=== PATIENT | female | born 1990 | race Caucasian/White ===

== ENCOUNTER → 2017-02-21 | Outpatient (CLI) | payer BC, OTHER ==
--- NOTE | 2017-02-21 19:57 | CT ---
EXAMINATION TYPE: CT brain wo/w con DATE OF EXAM: 02/21/2017 COMPARISON: NONE HISTORY: SHARP, changes in behavior and family hx of anuerysms. CT DLP: 2080 mGycm Automated Exposure Control for Dose Reduction was Utilized. TECHNIQUE: CT scan of the head is performed with IV contrast.,CT scan of the head is performed withou t and with without and with IV Contrast, patient injected with 100 mL of Omnipaque 300. CLINICAL HISTORY: Syncope COMPARISON: 08/04/2015 FINDINGS: Ventricles of normal size. There is no mass effect nor midline shift. There is no sign of intracranial hemorrhage. The calvarium is intact. There is no pathologic enhancement. There is no si gn of cerebral edema. There is a small mucous retention cyst in the right maxillary sinus. CONCLUSION: Negative CT scan of the brain. No change compared to old exam.
== END | disposition home or self-care (01) ==
LOC: RADCTMAIN 19:12
PROVIDERS: ATTEND Nurse Practitioner Family
DX: J34.1 Cyst and mucocele of nose and nasal sinus (principal); H53.9 Unspecified visual disturbance; Z80.8 Family history of malignant neoplasm of other organs or systems
CPT/HCPCS: 70470; Q9967

== ENCOUNTER 2017-05-19 18:15 | Emergency (ER) | payer BC, OTHER ==
[2017-05-19 18:23] VITALS: BP 132/71; PULSE 74; RESP 18; TEMP 98
--- NOTE | 2017-05-19 18:45 | ED ---
General Adult HPI - General Chief complaint: Back Pain/Injury Stated complaint: BACK PAIN Time Seen by Provider: 05/19/17 18:24 Source: patient, RN notes reviewed Mode of arrival: ambulatory Limitations: no limitations - History of Present Illness Initial comments: 27-year-old female presents for back pain. Patient states she was lifting boxes and she developed left back pain that radiates down her left leg. Patient denies a loss by bladder function. She has any falls any saddle anesthesia. Patient states she was lifting when this happened when she steps just of the pain that shoots on the leg. Patient states there is been no other symptoms with this. He denies any abdominal cramping. She states that she is 5 weeks and 5 days . Patient was concerned due to her symptoms so she thought that she should be evaluated. Patient denies any recent fever, chills, shortness of breath, chest pain, back pain, abdominal pain, nausea vomiting, numbness or tingling, dysuria or hematuria, constipation or diarrhea, headaches or visual changes, or any other current symptoms. - Related Data Home Medications Medication Instructions Recorded Confirmed Pnv,Calcium 72/Iron/Folic Acid 1 each PO DAILY 01/29/15 05/06/16 [ Plus Tablet] Albuterol Inhaler [Ventolin Hfa 2 puff INHALATION RT-Q6H PRN 05/19/17 05/19/17 Inhaler] Previous Rx's Medication Instructions Recorded Acetaminophen-Codeine 300-30mg 1 tab PO Q4H PRN #10 tablet 05/19/17 [Tylenol w/codeine #3] Allergies Allergy/AdvReac Type Severity Reaction Status Date / Time cefaclor [From Ceclor] Allergy Rash/Hives Verified 05/19/17 18:23 cephalexin monohydrate Allergy Rash/Hives Verified 05/19/17 18:23 [From Keflex] Review of Systems ROS Statement: Those systems with pertinent positive or pertinent negative responses have been documented in the HPI. ROS Other: All systems not noted in ROS Statement are negative. Past Medical History Past Medical History: Asthma Additional Past Medical History / Comment(s): obesity History of Any Multi-Drug Resistant Organisms: None Reported Past Surgical History: Cholecystectomy, Orthopedic Surgery Additional Past Surgical History / Comment(s): d&c achillis tendon ortho Past Psychological History: No Psychological Hx Reported Smoking Status: Former smoker Past Alcohol Use History: None Reported Past Drug Use History: None Reported General Exam Limitations: no limitations General appearance: alert, in no apparent distress ENT exam: Present: normal exam, mucous membranes moist Neck exam: Present: normal inspection. Absent: tenderness, meningismus, lymphadenopathy Respiratory exam: Present: normal lung sounds bilaterally. Absent: respiratory distress, wheezes, rales, rhonchi, stridor Cardiovascular Exam: Present: regular rate, normal rhythm, normal heart sounds. Absent: systolic murmur, diastolic murmur, rubs, gallop, clicks GI/Abdominal exam: Present: soft, normal bowel sounds. Absent: distended, tenderness, guarding, rebound, rigid Back exam: Present: normal inspection, full ROM, other (Positive straight leg raise on the left). Absent: tenderness Neurological exam: Present: alert, oriented X3 Psychiatric exam: Present: normal affect, normal mood Skin exam: Present: warm, dry, intact, normal color. Absent: rash Course Vital Signs 05/19/17 18:20 Temperature 98.0 F Pulse Rate 74 Respiratory 18 Rate Blood Pressure 132/71 O2 Sat by Pulse 99 Oximetry Medical Decision Making - Medical Decision Making 27 yo female presents for what appears to be sciatica. She has no abdominal pain or vaginal bleeding. This time it does appear to be isolated to the back. She took Tylenol with no relief. We did discuss she is very limited due to her what she can take. We discussed he can give her some Tylenol threes that she can take if she absolutely needs them for pain. Follow-up. We discussed return parameters all the patient's questions. She stated she understood and she is given plan. She'll be discharged. Disposition Clinical Impression: Sciatica, left side Disposition: HOME SELF-CARE Condition: Stable Instructions: Sciatica (ED) Additional Instructions: Please use medication as discussed. Please follow up with family doctor if symptoms have not improved over the next two days. Please return to the emergency room if your symptoms increase or worsen or for any other concerns. Please try to just use Tylenol and this stretches to help relieve the pain. If absolutely necessary you may use the Tylenol threes understanding that there may be some risk involved. Prescriptions: Acetaminophen-Codeine 300-30mg [Tylenol w/codeine #3] 1 tab PO Q4H PRN #10 tablet PRN Reason: Pain Referrals: Rashid Herrera MD [Primary Care Provider] - 1-2 days Time of Disposition: 18:44
== END 2017-05-19 18:58 | disposition home or self-care (01) ==
LOC: EC 18:15
DX: O99.89 Other specified diseases and conditions complicating pregnancy, childbirth and the puerperium (principal); M54.32 Sciatica, left side; O99.211 Obesity complicating pregnancy, first trimester; E66.9 Obesity, unspecified; Z87.891 Personal history of nicotine dependence; Z79.899 Other long term (current) drug therapy; Z88.1 Allergy status to other antibiotic agents; Z68.37 Body mass index [BMI] 37.0-37.9, adult; Z3A.01 Less than 8 weeks gestation of pregnancy
CPT/HCPCS: 99283

== ENCOUNTER 2017-06-30 14:07 | Emergency (ER) | payer OTHER ==
[2017-06-30] MEDS ORDERED: SODIUM CHLORIDE 0.9% 1,000 ML IV STA ×2 (14:24)
--- NOTE | 2017-06-30 14:27 | ED ---
General Adult HPI - General Source: patient, RN notes reviewed Mode of arrival: wheelchair Limitations: no limitations <Dc Martins - Last Filed: 06/30/17 18:38> <Adolph Erickson - Last Filed: 07/08/17 21:47> - General Chief complaint: Vaginal Bleeding Stated complaint: Vaginal Bleeding Time Seen by Provider: 06/30/17 14:18 - History of Present Illness Initial comments: Patient 27 year old female who presents emergency room today with chief complaint of increased vaginal bleeding. She does not that she's had spotting off and on over the last week. States became heavier this morning. She states approximately 10 weeks . States her OB is through [facility]. States he was so heavy that she came to this hospital as was closed. Does admit to some lower abdominal cramping. He admits that she's felt dizzy at times. Denies any other complaints or symptoms. Patient denies any recent fever , chills, shortness of breath, chest pain, back pain, nausea or vomiting, numbness or tingling, dysuria or hematuria, constipation or diarrhea, headaches or visual changes, or any other complaints. (Dc Martins) - Related Data Home Medications Medication Instructions Recorded Confirmed Pnv,Calcium 72/Iron/Folic Acid 1 tab PO DAILY 01/29/15 06/30/17 [ Plus Tablet] Albuterol Inhaler [Ventolin Hfa 2 puff INHALATION RT-Q6H PRN 05/19/17 06/30/17 Inhaler] Allergies Allergy/AdvReac Type Severity Reaction Status Date / Time cefaclor [From Ceclor] Allergy ASTHMA Verified 06/30/17 14:19 ATTACK cephalexin monohydrate Allergy Rash/Hives Verified 06/30/17 14:19 [From Keflex] Review of Systems ROS Other: All systems not noted in ROS Statement are negative. <Dc Martins - Last Filed: 06/30/17 18:38> ROS Other: All systems not noted in ROS Statement are negative. <Adolph Erickson - Last Filed: 07/08/17 21:47> ROS Statement: Those systems with pertinent positive or pertinent negative responses have been documented in the HPI. Past Medical History Past Medical History: Asthma Additional Past Medical History / Comment(s): obesity History of Any Multi-Drug Resistant Organisms: None Reported Past Surgical History: Cholecystectomy, Orthopedic Surgery Additional Past Surgical History / Comment(s): d&c achillis tendon ortho Past Psychological History: No Psychological Hx Reported Smoking Status: Former smoker Past Alcohol Use History: None Reported Past Drug Use History: None Reported <EliezerDc - Last Filed: 06/30/17 18:38> General Exam Limitations: no limitations <Josefina Martinsony - Last Filed: 06/30/17 18:38> <Adolph Erickson - Last Filed: 07/08/17 21:47> - General Exam Comments Initial Comments: General: The patient is awake and alert, in no distress, and does not appear acutely ill. Eye: Pupils are equal, round and reactive to light, extra-ocular movements are intact. No nystagmus. There is normal conjunctiva bilaterally. No signs of icterus. Ears, nose, mouth and throat: There are moist mucous membranes and no oral lesions. Neck: The neck is supple, there is no tenderness or JVD. Cardiovascular: There is a regular rate and rhythm. No murmur, rub or gallop is appreciated. Respiratory: Lungs are clear to auscultation, respirations are non-labored, breath sounds are equal. No wheezes, stridor, rales, or rhonchi. Gastrointestinal: Soft, non-distended, non-tender abdomen without masses or organomegaly noted. There is no rebound or guarding present. No CVA tenderness. Bowel sounds are unremarkable. Musculoskeletal: Normal ROM, no tenderness. Strength 5/5. Sensation intact. Pulses equal bilaterally 2+. Neurological: A&O x 3. CN II-XII intact, There are no obvious motor or sensory deficits. Coordination appears grossly intact. Speech is normal. Skin: Skin is warm and dry and no rashes or lesions are noted. Psychiatric: Cooperative, appropriate mood & affect, normal judgment. (Dc Martins) Vital Signs 06/30/17 06/30/17 06/30/17 14:09 15:10 15:42 Temperature 97.8 F Pulse Rate 85 78 69 Pulse Rate [ Sitting] Pulse Rate [ Supine] Respiratory 20 16 18 Rate Blood Pressure 151/76 108/56 117/61 Blood Pressure [Sitting] Blood Pressure [Supine] O2 Sat by Pulse 99 97 Oximetry 06/30/17 06/30/17 06/30/17 16:23 17:42 17:57 Temperature 98.3 F Pulse Rate 73 91 Pulse Rate [ 98 Sitting] Pulse Rate [ 76 Supine] Respiratory 16 18 Rate Blood Pressure 113/69 147/64 Blood Pressure 128/63 [Sitting] Blood Pressure 130/59 [Supine] O2 Sat by Pulse 97 99 Oximetry 06/30/17 19:11 Temperature Pulse Rate 76 Pulse Rate [ Sitting] Pulse Rate [ Supine] Respiratory 16 Rate Blood Pressure 134/71 Blood Pressure [Sitting] Blood Pressure [Supine] O2 Sat by Pulse 97 Oximetry Medical Decision Making - Lab Data Result diagrams: 06/30/17 18:04 06/30/17 14:44 <Dc Martins - Last Filed: 06/30/17 18:38> - Lab Data Result diagrams: 06/30/17 18:04 06/30/17 14:44 <Adolph Erickson - Last Filed: 07/08/17 21:47> - Medical Decision Making Case discussed in detail with attending physician Dr. Erickson. Patient reexamined at this time shows no signs of distress resting comfortably. Patient labs been reviewed. She was thousand. Patient's hemoglobin 14 6 and initial labs. Repeat hemoglobin 13.6. Patient's had bleeding vaginally here in the emergency room. Patient's ultrasound does show evidence for miscarriage. Case was discussed with attending physician who did discuss case with on-call DIRECTOR OF PRODUCT MANAGEMENT Dr. Calderon states that hemoglobin stable patient can be discharged follow-up with DIRECTOR OF PRODUCT MANAGEMENT tomorrow. Patient's been updated of the results. Hemoglobin stable will be discharged home. Patient advised return here to emergency room if any symptoms increase or worsen or for any other concerns. Patient's essentially and is in agreement. (Dc Martins) I saw this patient in conjunction with the physician culture media laboratory assistant. I performed independent history and physical exam. Agree with case management. I have examined the patient and there is no concern at this point for hypovolemia or anemia. We did discuss the return parameters in depth with the patient regarding need to return for hemorrhage. (Adolph Erickson) - Lab Data Lab Results 06/30/17 06/30/17 06/30/17 Range/Units 14:44 14:44 14:44 WBC 10.6 (3.8-10.6) k/uL RBC 5.22 (3.80-5.40) m/uL Hgb 14.6 (11.4-16.0) gm/dL Hct 45.5 (34.0-46.0) % MCV 87.2 (80.0-100.0) fL MCH 28.0 (25.0-35.0) pg MCHC 32.2 (31.0-37.0) g/dL RDW 15.1 (11.5-15.5) % Plt Count 229 (150-450) k/uL Neutrophils % 67 % Lymphocytes % 21 % Monocytes % 5 % Eosinophils % 6 % Basophils % 1 % Neutrophils # 7.1 (1.3-7.7) k/uL Lymphocytes # 2.2 (1.0-4.8) k/uL Monocytes # 0.5 (0-1.0) k/uL Eosinophils # 0.6 (0-0.7) k/uL Basophils # 0.1 (0-0.2) k/uL PT (9.0-12.0) sec INR (<1.2) APTT (22.0-30.0) sec Sodium 141 (137-145) mmol/L Potassium 4.4 (3.5-5.1) mmol/L Chloride 107 (98-107) mmol/L Carbon Dioxide 25 (22-30) mmol/L Anion Gap 9 mmol/L BUN 12 (7-17) mg/dL Creatinine 0.78 (0.52-1.04) mg/dL Est GFR (MDRD) Af Amer >60 (>60 ml/min/1.73 sqM) Est GFR (MDRD) Non-Af >60 (>60 ml/min/1.73 sqM) Glucose 89 (74-99) mg/dL Calcium 9.7 (8.4-10.2) mg/dL Total Bilirubin 0.2 (0.2-1.3) mg/dL AST 22 (14-36) U/L ALT 44 (9-52) U/L Alkaline Phosphatase 85 (38-126) U/L Total Protein 6.6 (6.3-8.2) g/dL Albumin 4.1 (3.5-5.0) g/dL HCG, Quant 947.6 mIU/mL Blood Type A Positive Blood Type Recheck No 06/30/17 06/30/17 Range/Units 14:44 18:04 WBC 10.3 (3.8-10.6) k/uL RBC 4.84 (3.80-5.40) m/uL Hgb 13.6 (11.4-16.0) gm/dL Hct 41.6 (34.0-46.0) % MCV 85.9 (80.0-100.0) fL MCH 28.1 (25.0-35.0) pg MCHC 32.7 (31.0-37.0) g/dL RDW 13.4 (11.5-15.5) % Plt Count 214 (150-450) k/uL Neutrophils % 66 % Lymphocytes % 24 % Monocytes % 4 % Eosinophils % 5 % Basophils % 1 % Neutrophils # 6.8 (1.3-7.7) k/uL Lymphocytes # 2.5 (1.0-4.8) k/uL Monocytes # 0.4 (0-1.0) k/uL Eosinophils # 0.5 (0-0.7) k/uL Basophils # 0.1 (0-0.2) k/uL PT 10.6 (9.0-12.0) sec INR 1.1 (<1.2) APTT 25.9 (22.0-30.0) sec Sodium (137-145) mmol/L Potassium (3.5-5.1) mmol/L Chloride (98-107) mmol/L Carbon Dioxide (22-30) mmol/L Anion Gap mmol/L BUN (7-17) mg/dL Creatinine (0.52-1.04) mg/dL Est GFR (MDRD) Af Amer (>60 ml/min/1.73 sqM) Est GFR (MDRD) Non-Af (>60 ml/min/1.73 sqM) Glucose (74-99) mg/dL Calcium (8.4-10.2) mg/dL Total Bilirubin (0.2-1.3) mg/dL AST (14-36) U/L ALT (9-52) U/L Alkaline Phosphatase (38-126) U/L Total Protein (6.3-8.2) g/dL Albumin (3.5-5.0) g/dL HCG, Quant mIU/mL Blood Type Blood Type Recheck Disposition Time of Disposition: 18:40 <Dc Martins - Last Filed: 06/30/17 18:38> <Adolph Erickson - Last Filed: 07/08/17 21:47> Clinical Impression: Miscarriage Disposition: HOME SELF-CARE Condition: Stable Instructions: Miscarriage (ED) Additional Instructions: Please follow-up with DIRECTOR OF PRODUCT MANAGEMENT tomorrow morning as discussed. Please return to emergency room if the symptoms increase or worsen or for any other concerns. Referrals: Rashid Herrera MD [Primary Care Provider] - 1-2 days
[2017-06-30 14:53] LABS: Basophils # (A) 0.1 k/uL (0-0.2); Basophils % (A) 1 %; CH 28.4; CHCM 32.7; Eosinophils # (A) 0.6 k/uL (0-0.7); Eosinophils % (A) 6 %; HCT 45.5 % (34.0-46.0); HDW 2.42; HGB 14.6 gm/dL (11.4-16.0); Luc # (Auto) 0.11; Luc % (Auto) 1; Lymphocytes # (A) 2.2 k/uL (1.0-4.8); Lymphocytes % (A) 21 %; MCHC 32.2 g/dL (31.0-37.0); MCV 87.2 fL (80.0-100.0); Mean Platelet Volume 8.7; Monocytes # (A) 0.5 k/uL (0-1.0); Monocytes % (A) 5 %; Neutrophils # (A) 7.1 k/uL (1.3-7.7); Neutrophils % (A) 67 %; RBC 5.22 m/uL (3.80-5.40); RDW 15.1 % (11.5-15.5); WBC 10.6 k/uL (3.8-10.6); WBC (Perox) 10.35
[2017-06-30 15:01] LABS: INR 1.1 (<1.2); Partial Thromboplastin Time 25.9 sec (22.0-30.0); Prothrombin Time 10.6 sec (9.0-12.0)
[2017-06-30 15:05] LABS: ALT 44 U/L (9-52); AST 22 U/L (14-36); Alkaline Phosphatase 85 U/L (38-126); Anion Gap 9 mmol/L; Blood Urea Nitrogen 12 mg/dL (7-17); Calcium 9.7 mg/dL (8.4-10.2); Carbon Dioxide 25 mmol/L (22-30); Chloride 107 mmol/L (98-107); Glucose 89 mg/dL (74-99); Non-African American GFR(MDRD) >60 (>60 ml/min/1.73 sqM); Potassium 4.4 mmol/L (3.5-5.1); Sodium 141 mmol/L (137-145); Total Bilirubin 0.2 mg/dL (0.2-1.3); Total Protein 6.6 g/dL (6.3-8.2)
--- NOTE | 2017-06-30 16:34 | US ---
EXAMINATION TYPE: US OB <= 14 wk fetus DATE OF EXAM: 06/30/2017 COMPARISON: NONE CLINICAL HISTORY: Pain. bleeding with EXAM PERFORMED: Transabdominal (TA) EXAM MEASUREMENTS: GESTATIONAL AGE / DATING Physician Established: not established Dates by LMP: unknown Dates by First Scan: this is first scan here Dates by Current Scan for: empty gestational sac seen in ELOISA [facility]ERNAL ANATOMY Uterus: 12.0 x 5.2 x 5.3 cm Right Ovary: 2.9 x 1.9 x 2.5 cm Left Ovary: 2.6 x 1.9 x 3.1 cm Post CDS / Adnexa: wnl Presence of free fluid: none GESTATION / SURVEY MSD: 1.9 (6 weeks/3 days) Date of LMP: unknown due to patient having PCOS, patient believed it to be in February, that does not cor relate with findings. Beta HcG (if available): 947.6 Patient states she has had 2 recent ultrasounds at [facility], the first one showed a 5 w 4 d sac, sh e does not have any results from second exam performed on 06/27/2017. Patient is hemorrhaging at time of exam, with large clots. There is what appears to be an empty gestational sac in the lower uterine segment on transabdominal exam. IMPRESSION: There appears be a gestational sac in the lower uterine segment. Findings could be related to impendi ng spontaneous . pole and yolk sac are not identified. These may not be visualized at this low beta hCG level.
[2017-06-30] MEDS ORDERED: ACETAMINOPHEN IV (For NPO) 1,000 MG in EMPTY BAG 1 BAG IVPB STA (17:30)
[2017-06-30 17:58] VITALS: TEMP 98.3
[2017-06-30 18:12] LABS: Basophils # (A) 0.1 k/uL (0-0.2); Basophils % (A) 1 %; CH 28.3; CHCM 33.1; Eosinophils # (A) 0.5 k/uL (0-0.7); Eosinophils % (A) 5 %; HCT 41.6 % (34.0-46.0); HDW 2.57; HGB 13.6 gm/dL (11.4-16.0); Luc # (Auto) 0.08; Luc % (Auto) 1; Lymphocytes # (A) 2.5 k/uL (1.0-4.8); Lymphocytes % (A) 24 %; MCH 28.1 pg (25.0-35.0); MCHC 32.7 g/dL (31.0-37.0); MCV 85.9 fL (80.0-100.0); Mean Platelet Volume 7.8; Monocytes # (A) 0.4 k/uL (0-1.0); Monocytes % (A) 4 %; Neutrophils # (A) 6.8 k/uL (1.3-7.7); Neutrophils % (A) 66 %; RBC 4.84 m/uL (3.80-5.40); RDW 13.4 % (11.5-15.5); WBC 10.3 k/uL (3.8-10.6); WBC (Perox) 10.24
[2017-06-30 19:15] VITALS: BP 134/71; PULSE 76; RESP 16
== END 2017-06-30 19:11 | disposition home or self-care (01) ==
LOC: EC 14:07
DX: O03.9 Complete or unspecified spontaneous abortion without complication (principal); E66.9 Obesity, unspecified; Z68.42 Body mass index [BMI] 45.0-49.9, adult; Z90.49 Acquired absence of other specified parts of digestive tract; Z87.891 Personal history of nicotine dependence; Z79.899 Other long term (current) drug therapy; Z88.1 Allergy status to other antibiotic agents
CPT/HCPCS: 99284; 96374; 96361 ×5; 36415; 86900; 86901; 80053; 85025; 85610; 85730; 84702; 76801; J0131

== ENCOUNTER 2019-01-06 22:28 | Emergency (ER) | payer OTHER ==
[2019-01-06 23:12] LABS: Appearance,Urine Cloudy (Clear); Bilirubin,Urine Negative (Negative); Blood,Urine Moderate (Negative); Color,Urine Light Red; Glucose,Urine (UA) Negative (Negative); Ketones,Urine Negative (Negative); Leukocyte Esterase,Urine Moderate (Negative); Mucus,Urine Few /hpf; Nitrite,Urine Negative (Negative); PH, Urine 5.5 (5.0-8.0); Protein,Urine 2+ (Negative); RBC,Urine >182 /hpf (0-5); Specific Gravity,Urine 1.034 (1.001-1.035); Squamous Epithelial Cell,Urine 7 /hpf (0-4); Urobilinogen,Urine <2.0 mg/dL (<2.0); WBC,Urine 58 /hpf (0-5)
--- NOTE | 2019-01-07 00:46 | ED ---
Abdominal Pain HPI - General Source: patient Mode of arrival: ambulatory Limitations: no limitations <Karol Espinosa - Last Filed: 01/07/19 03:23> <Emily Morales - Last Filed: 01/07/19 07:48> - General Chief Complaint: Abdominal Pain Stated Complaint: 18 weeks and cramping, blood in urine Time Seen by Provider: 01/07/19 00:20 - History of Present Illness Initial Comments: female with history of PCOS presenting today for cc of blood in urine. Patient states that while working she noticed some lower abdominal cramping mostly left-sided. She states she noted left-sided back pain and there is blood in her urine she states that a small amount light pain. She states she is unsure if this is coming from the vagina or the urethra she called her MAINTENANCE PLANNING CLERK who recommended she go to the nearest hospital for evaluation. Patient states she is at high risk with her history of PCOS. 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 Patient denies any fever or chills night sweats, leg swelling, heavy vaginal bleeding or SOB. Remaining ROS (-). Upon arrival pt appears well. (Karol Espinosa) - Related Data Home Medications Medication Instructions Recorded Confirmed Pnv,Calcium 72/Iron/Folic Acid 1 tab PO DAILY 01/29/15 01/06/19 [ Plus Tablet] Albuterol Inhaler [Ventolin Hfa 2 puff INHALATION RT-Q6H PRN 05/19/17 01/06/19 Inhaler] Previous Rx's Medication Instructions Recorded Nitrofurantoin Monohyd/M-Cryst 100 mg PO Q12HR #14 cap 01/07/19 [Macrobid] Allergies Allergy/AdvReac Type Severity Reaction Status Date / Time cefaclor [From Ceclor] Allergy ASTHMA Verified 06/30/17 14:19 ATTACK cephalexin monohydrate Allergy Rash/Hives Verified 06/30/17 14:19 [From Keflex] Review of Systems ROS Other: All systems not noted in ROS Statement are negative. <Karol Espinosa - Last Filed: 01/07/19 03:23> ROS Other: All systems not noted in ROS Statement are negative. <Emily Morales - Last Filed: 01/07/19 07:48> ROS Statement: Those systems with pertinent positive or pertinent negative responses have been documented in the HPI. Past Medical History Past Medical History: Asthma Additional Past Medical History / Comment(s): obesity History of Any Multi-Drug Resistant Organisms: None Reported Past Surgical History: Cholecystectomy, Orthopedic Surgery Additional Past Surgical History / Comment(s): d&c achillis tendon ortho Past Psychological History: No Psychological Hx Reported Smoking Status: Former smoker Past Alcohol Use History: None Reported Past Drug Use History: None Reported <Karol Espinosa - Last Filed: 01/07/19 03:23> General Exam Limitations: no limitations <Karol Espinosa - Last Filed: 01/07/19 03:23> - General Exam Comments Initial Comments: General: The patient is awake and alert, in no distress, and does not appear acutely ill. Morbidly obese Eye: Pupils are equal, round and reactive to light, extra-ocular movements are intact. No nystagmus. There is normal conjunctiva bilaterally. No signs of icterus. Ears, nose, mouth and throat: There are moist mucous membranes and no oral lesions. Neck: The neck is supple, there is no tenderness or JVD. Cardiovascular: There is a regular rate and rhythm. No murmur, rub or gallop is appreciated. Respiratory: Lungs are clear to auscultation, respirations are non-labored, breath sounds are equal. No wheezes, stridor, rales, or rhonchi. Gastrointestinal: Soft, non-distended, non-tender abdomen without masses or organomegaly noted. There is no rebound or guarding present. No CVA tenderness. Bowel sounds are unremarkable. Pelvics: No external lesions. [place] well rugated vaginal mucosa. Discharge in vaginal vault. No blood in vaginal vault. No adnexal or cervical motion tenderness. Cervical os closed. Musculoskeletal: Normal ROM, no tenderness. Strength 5/5. Sensation intact. Radial pulses equal bilaterally 2+. Neurological: A&O x 3. CN II-XII intact, There are no obvious motor or sensory deficits. Coordination appears grossly intact. Speech is normal. Skin: Skin is warm and dry and no rashes or lesions are noted. Psychiatric: Cooperative, appropriate mood & affect, normal judgment. (Karol Espinosa) Course Vital Signs 01/06/19 01/07/19 22:57 03:32 Temperature 98.6 F 97.9 F Pulse Rate 68 82 Respiratory 20 18 Rate Blood Pressure 123/85 121/84 O2 Sat by Pulse 100 99 Oximetry Medical Decision Making - Lab Data Result diagrams: 01/07/19 00:41 01/07/19 00:41 <Karol Espinosa - Last Filed: 01/07/19 03:23> - Lab Data Result diagrams: 01/07/19 00:41 01/07/19 00:41 <Emily Morales - Last Filed: 01/07/19 07:48> - Medical Decision Making 28yo presenting for bleeding. Pt hemodynamically stable upon arrival. Patient denies any heavy bleeding stating it is very light. US no complicating process. IUP with HR WNL. Ultrasound of the renal and bladder WNL. No evidence of stone. On pelvic no evidence of vaginal bleeding. RBC and WBC in UA. Concerning for urinary tract infection. Pt will be treated with macrobid. Pt states her OBGYN is aware of the protein in her urine. Pt BP within acceptable limits. At this time feel patient is stable for discharge with outpatient MAINTENANCE PLANNING CLERK follow-up. Patient is agreeable care plan as well as discharge. Discussed case with Dr. Morales prior to discharge who is agreeable with plan. (Karol Espinosa) I was available for consultation in the emergency department. The history and physical exam were done by the midlevel provider. I was consulted for this patient's care. I reviewed the case with the midlevel provider and based on their presentation of the patient, I agree with the assessment, medical decision making and plan of care as documented. Chart was dictated using [employer] dictation software. Attempts were made to correct any dictation errors however some typographical errors may persist. (Emily Morales) - Lab Data Lab Results 01/06/19 01/06/19 01/07/19 Range/Units 22:48 22:48 00:41 WBC (3.8-10.6) k/uL RBC (3.80-5.40) m/uL Hgb (11.4-16.0) gm/dL Hct (34.0-46.0) % MCV (80.0-100.0) fL MCH (25.0-35.0) pg MCHC (31.0-37.0) g/dL RDW (11.5-15.5) % Plt Count (150-450) k/uL Neutrophils % % Lymphocytes % % Monocytes % % Eosinophils % % Basophils % % Neutrophils # (1.3-7.7) k/uL Lymphocytes # (1.0-4.8) k/uL Monocytes # (0-1.0) k/uL Eosinophils # (0-0.7) k/uL Basophils # (0-0.2) k/uL Sodium (137-145) mmol/L Potassium (3.5-5.1) mmol/L Chloride (98-107) mmol/L Carbon Dioxide (22-30) mmol/L Anion Gap mmol/L BUN (7-17) mg/dL Creatinine (0.52-1.04) mg/dL Est GFR (CKD-EPI)AfAm (>60 ml/min/1.73 sqM) Est GFR (CKD-EPI)NonAf (>60 ml/min/1.73 sqM) Glucose (74-99) mg/dL Calcium (8.4-10.2) mg/dL Total Bilirubin (0.2-1.3) mg/dL AST (14-36) U/L ALT (9-52) U/L Alkaline Phosphatase (38-126) U/L Total Protein (6.3-8.2) g/dL Albumin (3.5-5.0) g/dL Urine Color Light Red Urine Appearance Cloudy H (Clear) Urine pH 5.5 (5.0-8.0) Ur Specific [place] 1.034 (1.001-1.035) Urine Protein 2+ H (Negative) Urine Glucose (UA) Negative (Negative) Urine Ketones Negative (Negative) Urine Blood Moderate H (Negative) Urine Nitrite Negative (Negative) Urine Bilirubin Negative (Negative) Urine Urobilinogen <2.0 (<2.0) mg/dL Ur Leukocyte Esterase Moderate H (Negative) Urine RBC >182 H (0-5) /hpf Urine WBC 58 H (0-5) /hpf Ur Squamous Epith Cells 7 H (0-4) /hpf Urine Mucus Few H (None) /hpf Urine HCG, Qual Detected (Not Detectd) Blood Type A Positive Blood Type Recheck No Antibody Screen NEGATIVE Spec Expiration Date 01/10/2019 - 234001/07/19 01/07/19 Range/Units 00:41 00:41 WBC 10.0 (3.8-10.6) k/uL RBC 4.50 (3.80-5.40) m/uL Hgb 13.1 (11.4-16.0) gm/dL Hct 38.8 (34.0-46.0) % MCV 86.4 (80.0-100.0) fL MCH 29.1 (25.0-35.0) pg MCHC 33.7 (31.0-37.0) g/dL RDW 14.2 (11.5-15.5) % Plt Count 190 (150-450) k/uL Neutrophils % 63 % Lymphocytes % 27 % Monocytes % 4 % Eosinophils % 4 % Basophils % 1 % Neutrophils # 6.3 (1.3-7.7) k/uL Lymphocytes # 2.7 (1.0-4.8) k/uL Monocytes # 0.4 (0-1.0) k/uL Eosinophils # 0.4 (0-0.7) k/uL Basophils # 0.1 (0-0.2) k/uL Sodium 138 (137-145) mmol/L Potassium 3.8 (3.5-5.1) mmol/L Chloride 109 H (98-107) mmol/L Carbon Dioxide 23 (22-30) mmol/L Anion Gap 6 mmol/L BUN 11 (7-17) mg/dL Creatinine 0.54 (0.52-1.04) mg/dL Est GFR (CKD-EPI)AfAm >90 (>60 ml/min/1.73 sqM) Est GFR (CKD-EPI)NonAf >90 (>60 ml/min/1.73 sqM) Glucose 86 (74-99) mg/dL Calcium 9.2 (8.4-10.2) mg/dL Total Bilirubin 0.2 (0.2-1.3) mg/dL AST 12 L (14-36) U/L ALT 17 (9-52) U/L Alkaline Phosphatase 61 (38-126) U/L Total Protein 5.7 L (6.3-8.2) g/dL Albumin 3.4 L (3.5-5.0) g/dL Urine Color Urine Appearance (Clear) Urine pH (5.0-8.0) Ur Specific [place] (1.001-1.035) Urine Protein (Negative) Urine Glucose (UA) (Negative) Urine Ketones (Negative) Urine Blood (Negative) Urine Nitrite (Negative) Urine Bilirubin (Negative) Urine Urobilinogen (<2.0) mg/dL Ur Leukocyte Esterase (Negative) Urine RBC (0-5) /hpf Urine WBC (0-5) /hpf Ur Squamous Epith Cells (0-4) /hpf Urine Mucus (None) /hpf Urine HCG, Qual (Not Detectd) Blood Type Blood Type Recheck Antibody Screen Spec Expiration Date Disposition <Karol Espinosa L - Last Filed: 01/07/19 03:23> Is patient prescribed a controlled substance at d/c from ED?: No <Emily Morales - Last Filed: 01/07/19 07:48> Clinical Impression: UTI (urinary tract infection) Disposition: HOME SELF-CARE Condition: Stable Instructions (If sedation given, give patient instructions): Urinary Tract Infection in (ED) Prescriptions: Nitrofurantoin Monohyd/M-Cryst [Macrobid] 100 mg PO Q12HR #14 cap Referrals: Rashid Herrera MD [Primary Care Provider] - 1-2 days
[2019-01-07 00:53] LABS: Basophils # (A) 0.1 k/uL (0-0.2); Basophils % (A) 1 %; Eosinophils # (A) 0.4 k/uL (0-0.7); Eosinophils % (A) 4 %; HCT 38.8 % (34.0-46.0); HGB 13.1 gm/dL (11.4-16.0); Lymphocytes # (A) 2.7 k/uL (1.0-4.8); Lymphocytes % (A) 27 %; MCH 29.1 pg (25.0-35.0); MCHC 33.7 g/dL (31.0-37.0); MCV 86.4 fL (80.0-100.0); Mean Platelet Volume 8.8; Monocytes # (A) 0.4 k/uL (0-1.0); Monocytes % (A) 4 %; Neutrophils # (A) 6.3 k/uL (1.3-7.7); Neutrophils % (A) 63 %; Platelet Count 190 k/uL (150-450); RDW 14.2 % (11.5-15.5)
[2019-01-07 00:58] LABS: ALT 17 U/L (9-52); AST 12 U/L (14-36); Albumin 3.4 g/dL (3.5-5.0); Alkaline Phosphatase 61 U/L (38-126); Anion Gap 6 mmol/L; Blood Urea Nitrogen 11 mg/dL (7-17); Calcium 9.2 mg/dL (8.4-10.2); Carbon Dioxide 23 mmol/L (22-30); Chloride 109 mmol/L (98-107); Glucose 86 mg/dL (74-99); Potassium 3.8 mmol/L (3.5-5.1); Sodium 138 mmol/L (137-145); Total Bilirubin 0.2 mg/dL (0.2-1.3); Total Protein 5.7 g/dL (6.3-8.2)
--- NOTE | 2019-01-07 01:58 | US ---
EXAM: US Retroperitoneal Limited, Renal CLINICAL HISTORY: Hematuria TECHNIQUE: Real-time ultrasound of the retroperitoneum (limited) with image documentation. COMPARISON: No relevant prior studies available. FINDINGS: Right kidney: Measures up to 9.8 cm. No stones. No solid mass. No hydronephrosis. Left kidney: Measures up to 10.0 cm. No stones. No solid mass. No hydronephrosis. IMPRESSION: Normal retroperitoneal ultrasound.
--- NOTE | 2019-01-07 02:06 | US ---
EXAM: US After First Trimester, Transabdominal CLINICAL HISTORY: Bleeding and TECHNIQUE: Real-time transabdominal obstetrical ultrasound of the maternal pelvis and a second or third trimester with image documentation. COMPARISON: No relevant prior studies available. FINDINGS: Fetus: Single live IUP with an estimated gestational age of 18 weeks and 2 days. Heart rate: 14 7 bpm Presentation: Variable. Placenta: Fundal. No previa. No abruption. Amniotic fluid: Unremarkable. Measures 10.16 cm. Anatomy: Limited anatomy is unremarkable. BIOMETRICS Gestational age: 18 weeks and 2 days HEATHER: 06/08/2019 EFW: 239.2 g BPD: 4.1 cm suggesting 18 weeks and 3 day gestation HC: 15.43 cm suggesting 18 week and 3 day gestation AC: 13.15 cm suggesting 18 weeks and 5 day gestation FL: 2.68 cm suggesting 18 weeks and 1 day gestation MATERNAL: Uterus: Unremarkable. No myometrial mass. Cervix: Unremarkable as visualized. Closed. Measures up to 4.5 cm Free fluid: No free fluid. IMPRESSION: Single live IUP with an estimated gestational age of 18 weeks and 2 days. No abnormalities identified.
[2019-01-07] MEDS ORDERED: NITROFURANTOIN MONOHYD/M-CRYST 100 MG CAP PO STA (03:10)
[2019-01-07 03:35] VITALS: BP 121/84; PULSE 82; RESP 18; TEMP 97.9
== END 2019-01-07 03:37 | disposition home or self-care (01) ==
LOC: EC 22:28
DX: O23.42 Unspecified infection of urinary tract in pregnancy, second trimester (principal); O99.512 Diseases of the respiratory system complicating pregnancy, second trimester; J45.909 Unspecified asthma, uncomplicated; O99.212 Obesity complicating pregnancy, second trimester; E66.01 Morbid (severe) obesity due to excess calories; Z90.49 Acquired absence of other specified parts of digestive tract; Z87.42 Personal history of other diseases of the female genital tract; Z87.59 Personal history of other complications of pregnancy, childbirth and the puerperium; Z87.891 Personal history of nicotine dependence; Z88.1 Allergy status to other antibiotic agents; Z3A.18 18 weeks gestation of pregnancy
CPT/HCPCS: 36415; 76770; 76805; 80053; 81001; 81025; 85025; 86850; 86900; 86901; 99284

== ENCOUNTER 2019-06-25 22:08 | Inpatient (IN) | payer OTHER ==
[2019-06-25] MEDS ORDERED: SODIUM CHLORIDE 0.9% 1,000 ML IV STA ×2 (22:46→23:56)
[2019-06-25] MEDS ORDERED: ONDANSETRON 4 MG/2 ML VIAL IVP STA (22:46)
[2019-06-25] MEDS ORDERED: PANTOPRAZOLE 40 MG/10 ML VIAL IVP STA (22:46)
[2019-06-25] MEDS ORDERED: IBUPROFEN 800 MG TAB PO STA (22:48)
--- NOTE | 2019-06-25 22:50 | ED ---
Recheck HPI - General Chief Complaint: Recheck/Abnormal Lab/Rx Stated Complaint: pancreatitis levels high Time Seen by Provider: 06/25/19 22:23 Source: patient, RN notes reviewed, old records reviewed Mode of arrival: ambulatory Limitations: no limitations - History of Present Illness Initial Comments: This is a 21-year-old female the ER for evaluation of abdominal pain. Patient has history of cholecystectomy she has history of elevated lipase in the past. Increased levels of elevated lipids unknown cause. Patient has history of drinking she does have a 2 months ago. He is post time is been fine. She also admits to some recent fevers and chills and diffuse abdominal pain across the front of her abdomen. Patient denies any radiation, no modifying factors for pain, patient is eating and drinking appropriately does have some nausea when the pain gets worse. No diarrhea. No travel history no sick contacts. No family members with similar complaints. Patient was seen an outpatient basis by her primary care today was given lab tests and elevated lipase was found. Patient unsure of level MD Complaint: abnormal lab (Elevated lipase) -: unknown Returns Today for: Called Because of Abnormal Lab/Test Symptoms Since Prior Visit: worsening pain, fever Context: called for abnormal lab result Associated Symptoms: fever, chills, nausea, abdominal pain - Related Data Home Medications Medication Instructions Recorded Confirmed Acetaminophen-Codeine 300-30mg 0.5 - 1 tab PO Q6H PRN 06/25/19 06/25/19 [Tylenol w/codeine #3] Multivitamin [Multivitamins Adult 2 tab PO DAILY 06/25/19 06/25/19 Gummies] Allergies Allergy/AdvReac Type Severity Reaction Status Date / Time amoxicillin [From Augmentin] Allergy Anaphylaxis Verified 06/25/19 23:03 cefaclor [From Ceclor] Allergy ASTHMA Verified 06/25/19 23:03 ATTACK cephalexin monohydrate Allergy Rash/Hives Verified 06/25/19 23:03 [From Keflex] clavulanic acid Allergy Anaphylaxis Verified 06/25/19 23:03 [From Augmentin] Review of Systems ROS Statement: Those systems with pertinent positive or pertinent negative responses have been documented in the HPI. ROS Other: All systems not noted in ROS Statement are negative. Past Medical History Past Medical History: Asthma Additional Past Medical History / Comment(s): obesity History of Any Multi-Drug Resistant Organisms: None Reported Past Surgical History: Cholecystectomy, Orthopedic Surgery Additional Past Surgical History / Comment(s): d&c achillis tendon ortho Past Psychological History: No Psychological Hx Reported Smoking Status: Former smoker Past Alcohol Use History: None Reported Past Drug Use History: None Reported General Exam Limitations: no limitations General appearance: alert, in no apparent distress, obese Head exam: Present: atraumatic, normocephalic, normal inspection Eye exam: Present: normal appearance, PERRL, EOMI. Absent: scleral icterus, conjunctival injection, periorbital swelling ENT exam: Present: normal exam, mucous membranes moist Neck exam: Present: normal inspection. Absent: tenderness, meningismus, lymphadenopathy Respiratory exam: Present: normal lung sounds bilaterally. Absent: respiratory distress, wheezes, rales, rhonchi, stridor Cardiovascular Exam: Present: normal rhythm, tachycardia, normal heart sounds. Absent: systolic murmur, diastolic murmur, rubs, gallop, clicks GI/Abdominal exam: Present: soft, normal bowel sounds. Absent: distended, te nderness, guarding, rebound, rigid Extremities exam: Present: normal inspection, full ROM, normal capillary refill. Absent: tenderness, pedal edema, joint swelling, calf tenderness Back exam: Present: normal inspection Neurological exam: Present: alert, oriented X3, CN II-XII intact Psychiatric exam: Present: normal affect, normal mood Skin exam: Present: warm, dry, intact, normal color. Absent: rash Course Vital Signs 06/25/19 22:18 Temperature 98.5 F Pulse Rate 104 H Respiratory 20 Rate Blood Pressure 133/73 O2 Sat by Pulse 98 Oximetry - Reevaluation(s) Reevaluation #1: 06/25/19 22:50 Medical record is reviewed Reevaluation #2: 06/25/19 22:50 Patient pain is mildly improved nausea is improved Reevaluation #3: 06/26/19 00:03 Patient lives hour long-term, patient's did leave patient not feeling good for discharge mildly nauseous with no active vomiting. Patient is breast- feeding, will have antibiotics despite ALLERGIES keep overnight - Consultations Consultation #1: spoke w Dr Gerry fink for admission Medical Decision Making - Medical Decision Making 21 female the ER for evaluation of abdominal pain. Patient originally thought she had an elevated lipase per family doctor here in the ER patient lipase is normal she is of UTI with pyelonephritis on computed tomography scan to abdominal pain. Patient be admitted for IV antibiotics and IV hydration. - Lab Data Result diagrams: 06/25/19 22:38 06/25/19 22:38 Lab Results 06/25/19 06/25/19 06/25/19 Range/Units 22:38 22:38 22:38 WBC 12.7 H (3.8-10.6) k/uL RBC 4.12 (3.80-5.40) m/uL Hgb 12.0 (11.4-16.0) gm/dL Hct 36.3 (34.0-46.0) % MCV 88.1 (80.0-100.0) fL MCH 29.2 (25.0-35.0) pg MCHC 33.2 (31.0-37.0) g/dL RDW 13.4 (11.5-15.5) % Plt Count 217 (150-450) k/uL Neutrophils % 73 % Lymphocytes % 16 % Monocytes % 5 % Eosinophils % 1 % Basophils % 1 % Neutrophils # 9.3 H (1.3-7.7) k/uL Lymphocytes # 2.1 (1.0-4.8) k/uL Monocytes # 0.6 (0-1.0) k/uL Eosinophils # 0.1 (0-0.7) k/uL Basophils # 0.1 (0-0.2) k/uL Sodium 137 (137-145) mmol/L Potassium 4.0 (3.5-5.1) mmol/L Chloride 103 (98-107) mmol/L Carbon Dioxide 26 (22-30) mmol/L Anion Gap 8 mmol/L BUN 20 H (7-17) mg/dL Creatinine 1.04 (0.52-1.04) mg/dL Est GFR (CKD-EPI)AfAm 85 (>60 ml/min/1.73 sqM) Est GFR (CKD-EPI)NonAf 74 (>60 ml/min/1.73 sqM) Glucose 107 H (74-99) mg/dL Plasma Lactic Acid [place] 1.2 (0.7-2.0) mmol/L Calcium 9.0 (8.4-10.2) mg/dL Total Bilirubin 0.8 (0.2-1.3) mg/dL AST 35 (14-36) U/L ALT 33 (9-52) U/L Alkaline Phosphatase 94 (38-126) U/L Creatine Kinase 369 H (30-135) U/L Total Protein 6.2 L (6.3-8.2) g/dL Albumin 3.4 L (3.5-5.0) g/dL Amylase 33 (30-110) U/L Lipase 127 (23-300) U/L Urine Color Urine Appearance (Clear) Urine pH (5.0-8.0) Ur Specific [place] (1.001-1.035) Urine Protein (Negative) Urine Glucose (UA) (Negative) Urine Ketones (Negative) Urine Blood (Negative) Urine Nitrite (Negative) Urine Bilirubin (Negative) Urine Urobilinogen (<2.0) mg/dL Ur Leukocyte Esterase (Negative) Urine RBC (0-5) /hpf Urine WBC (0-5) /hpf Urine WBC Clumps (None) /hpf Ur Squamous Epith Cells (0-4) /hpf Urine Bacteria (None) /hpf Urine Mucus (None) /hpf 06/25/19 Range/Units 23:25 WBC (3.8-10.6) k/uL RBC (3.80-5.40) m/uL Hgb (11.4-16.0) gm/dL Hct (34.0-46.0) % MCV (80.0-100.0) fL MCH (25.0-35.0) pg MCHC (31.0-37.0) g/dL RDW (11.5-15.5) % Plt Count (150-450) k/uL Neutrophils % % Lymphocytes % % Monocytes % % Eosinophils % % Basophils % % Neutrophils # (1.3-7.7) k/uL Lymphocytes # (1.0-4.8) k/uL Monocytes # (0-1.0) k/uL Eosinophils # (0-0.7) k/uL Basophils # (0-0.2) k/uL Sodium (137-145) mmol/L Potassium (3.5-5.1) mmol/L Chloride (98-107) mmol/L Carbon Dioxide (22-30) mmol/L Anion Gap mmol/L BUN (7-17) mg/dL Creatinine (0.52-1.04) mg/dL Est GFR (CKD-EPI)AfAm (>60 ml/min/1.73 sqM) Est GFR (CKD-EPI)NonAf (>60 ml/min/1.73 sqM) Glucose (74-99) mg/dL Plasma Lactic Acid [place] (0.7-2.0) mmol/L Calcium (8.4-10.2) mg/dL Total Bilirubin (0.2-1.3) mg/dL AST (14-36) U/L ALT (9-52) U/L Alkaline Phosphatase (38-126) U/L Creatine Kinase (30-135) U/L Total Protein (6.3-8.2) g/dL Albumin (3.5-5.0) g/dL Amylase (30-110) U/L Lipase (23-300) U/L Urine Color Yellow Urine Appearance Turbid H (Clear) Urine pH 5.5 (5.0-8.0) Ur Specific [place] 1.016 (1.001-1.035) Urine Protein 2+ H (Negative) Urine Glucose (UA) Negative (Negative) Urine Ketones Negative (Negative) Urine Blood Moderate H (Negative) Urine Nitrite Positive H (Negative) Urine Bilirubin Negative (Negative) Urine Urobilinogen <2.0 (<2.0) mg/dL Ur Leukocyte Esterase Large H (Negative) Urine RBC 64 H (0-5) /hpf Urine WBC >182 H (0-5) /hpf Urine WBC Clumps Moderate H (None) /hpf Ur Squamous Epith Cells 3 (0-4) /hpf Urine Bacteria Many H (None) /hpf Urine Mucus Occasional H (None) /hpf - Radiology Data Radiology results: report reviewed (CT of the abdomen pelvis is suspicious for bilateral pyelonephritis), image reviewed Disposition Clinical Impression: UTI (urinary tract infection), Pyelonephritis Disposition: ADMITTED IP TO THIS HOSP Condition: Fair Is patient prescribed a controlled substance at d/c from ED?: No Referrals: Rashid Herrera MD [Primary Care Provider] - 1-2 days
[2019-06-25 23:06] LABS: Basophils # (A) 0.1 k/uL (0-0.2); Basophils % (A) 1 %; Eosinophils # (A) 0.1 k/uL (0-0.7); Eosinophils % (A) 1 %; HCT 36.3 % (34.0-46.0); Lymphocytes # (A) 2.1 k/uL (1.0-4.8); Lymphocytes % (A) 16 %; MCH 29.2 pg (25.0-35.0); MCHC 33.2 g/dL (31.0-37.0); MCV 88.1 fL (80.0-100.0); Mean Platelet Volume 8.3; Monocytes # (A) 0.6 k/uL (0-1.0); Monocytes % (A) 5 %; Neutrophils # (A) 9.3 k/uL (1.3-7.7); Neutrophils % (A) 73 %; Platelet Count 217 k/uL (150-450); RBC 4.12 m/uL (3.80-5.40); RDW 13.4 % (11.5-15.5); WBC 12.7 k/uL (3.8-10.6)
[2019-06-25 23:21] LABS: Albumin 3.4 g/dL (3.5-5.0); Total Bilirubin 0.8 mg/dL (0.2-1.3); Total Protein 6.2 g/dL (6.3-8.2)
[2019-06-25 23:38] LABS: Appearance,Urine Turbid (Clear); Bacteria,Urine Many /hpf; Bilirubin,Urine Negative (Negative); Blood,Urine Moderate (Negative); Color,Urine Yellow; Glucose,Urine (UA) Negative (Negative); Ketones,Urine Negative (Negative); Leukocyte Esterase,Urine Large (Negative); Mucus,Urine Occasional /hpf; Nitrite,Urine Positive (Negative); PH, Urine 5.5 (5.0-8.0); Protein,Urine 2+ (Negative); RBC,Urine 64 /hpf (0-5); Specific Gravity,Urine 1.016 (1.001-1.035); Squamous Epithelial Cell,Urine 3 /hpf (0-4); Urobilinogen,Urine <2.0 mg/dL (<2.0); WBC,Urine >182 /hpf (0-5)
[2019-06-25] MEDS ORDERED: SULFAMETHOX-TMP 800-160MG 1 EACH TAB PO STA (23:48)
--- NOTE | 2019-06-25 23:55 | CT ---
EXAMINATION TYPE: CT abdomen pelvis w con DATE OF EXAM: 06/25/2019 COMPARISON: 01/29/2015 HISTORY: abdominal pain and fever. pt has elevated pancreatic enzymes. CT DLP: 2500.3 mGycm Automated exposure control for dose reduction was used. TECHNIQUE: Helical acquisition of images was performed from the lung bases through the pelvis. CONTRAST: Performed without Oral Contrast and with IV Contrast, patient injected with 100 mL of Isovue 300. FINDINGS: There is mild atelectasis left lung base. There is no pleural effusion. Liver appears enlarged and me asures 25 cm in length. Spleen is also mildly enlarged. Stomach is intact. There is no adrenal mass. There is no pancreatic mass. There are clips from cholecystectomy. Bile mik ts are not dilated. There is no discrete liver mass. There is large area of decreased enhancement upper pole left kidney. There is patchy decreased enhanc ement in the right kidney. There is 1.7 cm calculus at the right renal pelvis. The right ureter is no t dilated. Bladder is almost empty. Uterus is anteverted. There is 5 cm cyst on the left ovary. There is no free fluid in the pelvis. There is no inguinal hernia. There is no ascites or free air. There is no mesenteric edema. There is no sign of a bowel obstruction. There is no sign of thickened append ix. 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 Bony pelvis is intact. There is no compression f racture. IMPRESSION: THERE IS LARGE AREA OF EDEMA AND DECREASED ENHANCEMENT UPPER POLE LEFT KIDNEY THAT IS SUGGESTIVE OF A CUTE PYELONEPHRITIS. THERE IS PATCHY DECREASED ENHANCEMENT IN THE POSTERIOR CORTEX UPPER POLE RIGHT K IDNEY ALSO CONSISTENT WITH PYELONEPHRITIS. THERE IS PROBABLY SOME PYELONEPHRITIS IN THE INTERPOLAR RI GHT KIDNEY. THERE IS LARGE RIGHT RENAL CALCULUS. THERE IS MILD RIGHT-SIDED HYDRONEPHROSIS. MILD OBSTR UCTION OF THE RIGHT KIDNEY IS POSSIBLE. THE ABNORMALITIES OF THE KIDNEYS ARE NEW COMPARED TO OLD EXAM. LARGE LEFT OVARIAN CYST.
[2019-06-26] MEDS ORDERED: SODIUM CHLORIDE 0.9% 1,000 ML IV ONE (00:02)
[2019-06-26] MEDS ORDERED: LEVOFLOXACIN 750MG-D5W PMX 750 MG in DEXTROSE/WATER 1 150ML.BAG IVPB STA ×2 (00:02→15:51)
[2019-06-26] MEDS ORDERED: ONDANSETRON 4 MG/2 ML VIAL IVP PRN (00:31)
[2019-06-26] MEDS ORDERED: IBUPROFEN 400 MG TAB PO PRN (00:32)
[2019-06-26 01:27] VITALS: BMI 42.5
--- NOTE | 2019-06-26 18:32 | P.GSHP ---
History of Present Illness H&P Date: 06/26/19 Chief Complaint: Pyelonephritis and kidney stone The patient is a 29-year-old female admitted through the emergency room last night due to concern for possible pyelonephritis or pancreatitis. She says that she developed chills on 06/22 and a temperature to 104.5 on 06/23. She says that she had mid and left sided abdominal pain as well as some diarrhea. She also experienced some nausea and vomiting. She was evaluated by her PCP and apparently noted to have elevated pancreatic enzymes and sent to the emergency room for evaluation. She was afebrile upon presentation to the emergency room and has remained afebrile since then. Amylase and lipase were normal. Her white blood count was 12,700. BUN/creatinine were 20/1.04. Urinalysis showed 64 red cells greater than 182 white blood cells and was positive for nitrite. CT scan of the abdomen and pelvis showed an 18 x 13 mm calculus in the right renal pelvis but no hydronephrosis. The calculus had not been present on a CT scan in 01/2015. I was asked to see the patient due to the large right renal calculus. At the present time the patient denies any right-sided abdominal or flank pain. She has had no gross hematuria. She denies any dysuria but says that she has noted some increased urinary frequency. She usually voids 3 or 4 times at night but says that this pattern has not changed recently. - Constitutional Constitutional: Reports chills, Reports fever - Cardiovascular Cardiovascular: Denies shortness of breath - Respiratory Respiratory: Denies cough, Denies wheezing - Gastrointestinal Gastrointestinal: Reports as per HPI, Reports diarrhea Past Medical History Past Medical History: Asthma Additional Past Medical History / Comment(s): obesity History of Any Multi-Drug Resistant Organisms: None Reported Past Surgical History: Cholecystectomy, Orthopedic Surgery Additional Past Surgical History / Comment(s): d&c achillis tendon ortho Past Anesthesia/Blood Transfusion Reactions: No Reported Reaction Past Psychological History: No Psychological Hx Reported Smoking Status: Former smoker Past Alcohol Use History: None Reported Past Drug Use History: None Reported - Past Family History Mother Family Medical History: Thyroid Disorder Father Family Medical History: Diabetes Mellitus Additional Family Medical History / Comment(s): Heart Disease, Crohns Medications and Allergies Home Medications Medication Instructions Recorded Confirmed Type Acetaminophen-Codeine 300-30mg 0.5 - 1 tab PO Q6H PRN 06/25/19 06/25/19 History [Tylenol w/codeine #3] Multivitamin [Multivitamins Adult 2 tab PO DAILY 06/25/19 06/25/19 History Gummies] Sulfamethox-Tmp 800-160Mg [Bactrim 1 tab PO Q12HR #20 tab 06/26/19 Rx DS 800-160 mg] Allergies Allergy/AdvReac Type Severity Reaction Status Date / Time amoxicillin [From Augmentin] Allergy Anaphylaxis Verified 06/25/19 23:03 cefaclor [From Ceclor] Allergy ASTHMA Verified 06/25/19 23:03 ATTACK cephalexin monohydrate Allergy Rash/Hives Verified 06/25/19 23:03 [From Keflex] clavulanic acid Allergy Anaphylaxis Verified 06/25/19 23:03 [From Augmentin] Surgical - Exam Vital Signs Temp Pulse Resp BP Pulse Ox 98.5 F 104 H 20 133/73 98 06/25/19 22:18 06/25/19 22:18 06/25/19 22:18 06/25/19 22:18 06/25/19 22:18 - General well developed, well nourished, no distress, obese - ENT no hearing loss - Neck no masses, no lymphadectomy - Respiratory normal respiratory effort - Abdomen Abdomen: soft, non tender, no organomegaly Results - Labs 06/25/19 22:38 06/25/19 22:38 Abnormal Lab Results - Last 24 Hours (Table) 06/25/19 06/25/19 06/25/19 Range/Units 22:38 22:38 23:25 WBC 12.7 H (3.8-10.6) k/uL Neutrophils # 9.3 H (1.3-7.7) k/uL BUN 20 H (7-17) mg/dL Glucose 107 H (74-99) mg/dL Creatine Kinase 369 H (30-135) U/L Total Protein 6.2 L (6.3-8.2) g/dL Albumin 3.4 L (3.5-5.0) g/dL Urine Appearance Turbid H (Clear) Urine Protein 2+ H (Negative) Urine Blood Moderate H (Negative) Urine Nitrite Positive H (Negative) Ur Leukocyte Esterase Large H (Negative) Urine RBC 64 H (0-5) /hpf Urine WBC >182 H (0-5) /hpf Urine WBC Clumps Moderate H (None) /hpf Urine Bacteria Many H (None) /hpf Urine Mucus Occasional H (None) /hpf Microbiology - Last 24 Hours (Table) 06/25/19 23:25 Urine Culture - Preliminary Urine,Voided Diabetes panel 06/25/19 Range/Units 22:38 Sodium 137 (137-145) mmol/L Potassium 4.0 (3.5-5.1) mmol/L Chloride 103 (98-107) mmol/L Carbon Dioxide 26 (22-30) mmol/L BUN 20 H (7-17) mg/dL Creatinine 1.04 (0.52-1.04) mg/dL Glucose 107 H (74-99) mg/dL Calcium 9.0 (8.4-10.2) mg/dL AST 35 (14-36) U/L ALT 33 (9-52) U/L Alkaline Phosphatase 94 (38-126) U/L Total Protein 6.2 L (6.3-8.2) g/dL Albumin 3.4 L (3.5-5.0) g/dL Calcium panel 06/25/19 Range/Units 22:38 Calcium 9.0 (8.4-10.2) mg/dL Albumin 3.4 L (3.5-5.0) g/dL Pituitary panel 06/25/19 Range/Units 22:38 Sodium 137 (137-145) mmol/L Potassium 4.0 (3.5-5.1) mmol/L Chloride 103 (98-107) mmol/L Carbon Dioxide 26 (22-30) mmol/L BUN 20 H (7-17) mg/dL Creatinine 1.04 (0.52-1.04) mg/dL Glucose 107 H (74-99) mg/dL Calcium 9.0 (8.4-10.2) mg/dL Adrenal panel 06/25/19 Range/Units 22:38 Sodium 137 (137-145) mmol/L Potassium 4.0 (3.5-5.1) mmol/L Chloride 103 (98-107) mmol/L Carbon Dioxide 26 (22-30) mmol/L BUN 20 H (7-17) mg/dL Creatinine 1.04 (0.52-1.04) mg/dL Glucose 107 H (74-99) mg/dL Calcium 9.0 (8.4-10.2) mg/dL Total Bilirubin 0.8 (0.2-1.3) mg/dL AST 35 (14-36) U/L ALT 33 (9-52) U/L Alkaline Phosphatase 94 (38-126) U/L Total Protein 6.2 L (6.3-8.2) g/dL Albumin 3.4 L (3.5-5.0) g/dL Assessment and Plan (1) Renal calculus, right Narrative/Plan: The patient has a nonobstructive right renal calculus which does not appear to be currently symptomatic. Her urinalysis suggested a urinary tract infection but she has no right-sided flank pain suggestive of underlying pyelonephritis. She probably has cystitis. Her fever and diarrhea earlier in the week could hve been from the flu. She is currently afebrile and could be treated with an oral antibiotic as an outpatient. I discussed treatment options for her right renal calculus including ureteroscopy with lithotripsy, ESWL and percutaneous nephrostolithotomy. In view of the large size of the calculus I believe the latter would be the best treatment option. An appointment will be made for her to be seen in the office sometime later in the month to discuss this with Dr. Dawkins. Current Visit: Yes Status: Acute Code(s): N20.0 - CALCULUS OF KIDNEY SNOMED Code(s): 31026218
--- NOTE | 2019-06-26 19:09 | P.HPIM ---
History of Present Illness H&P Date: 06/26/19 Chief Complaint: Chills abdominal pain History of presenting complaint: This is a 29-year-old patient of Dr. Herrera. Patient on Saturday that is 5 days ago started with having chills. By Saturday symptoms became worse. Started having nausea vomiting. And CENTRAL abdominal pain diffuse. Started also having urinary frequency and a strong urine. Started becoming much worse. Decided to come to the ER. Found to have a very infected urine and admitted with acute pyelonephritis. Computed tomography scan of the abdomen also did show right kidney stone. Patient started on IV fluids IV antibiotics. Admitted for the same. Did receive IV Levaquin in the ER. Breasts the patient this morning she was feeling a bit better. Daily some breakfast and lunch. Patient had a ce sarean section 2 months ago. It is partly breast-feeding. And partly using formula for baby Review of systems: GEN.: Chills weak and tired EYES: None HEENT: None NECK: None RESPIRATORY: None CARDIOVASCULAR: None GASTROINTESTINAL: As above GENITOURINARY: None MUSCULOSKELETAL: None LYMPHATICS: None HEMATOLOGICAL: None PSYCHIATRY: None NEUROLOGICAL: None Past medical history to include: Asthma, 2 months ago Social history: Does smoke in the past. . Has 3 children at home. Physical examination: VITAL SIGNS: 98.5, 104, 20, 133/63, 98% room air GENERAL: BMI 41.2, sitting upon a distress. EYES: Pupils equal. Conjunctiva normal. HEENT: External appearance of nose and ears normal, oral cavity grossly normal. NECK: JVD not raised; masses not palpable. HEART: First and second heart sounds are normal; no edema. LUNGS: Respiratory rate normal; clear to auscultation. ABDOMEN: Soft, mild tenderness, no guarding or rigidity, liver spleen not palpable, no masses palpable. PSYCH: Alert and oriented x3; mood and affect normal. NEUROLOGICAL: Cranial nerves grossly intact; no facial asymmetry, power and sensation grossly intact. LYMPHATICS: No lymph nodes palpable in the axilla and neck INVESTIGATIONS, reviewed in the clinical context: White count 12.1 hemoglobin 12 progression for bun 20 creatine 1.04 Computed tomography scan abdomen large area of edema decreased enhancement upper pole left kidney. Also some suggestion of the right kidney. Also large right renal calculus. Assessment: -Bilateral acute pyelonephritis, UTI, causing early sepsis, POA -Patient had a giving to a child 2 months ago and patient's partly breast-feeding -Morbid obesity BMI 41.2 -Intermittent asthma -Large right kidney stone Plan: Patient is on IV fluids. IV Levaquin. Urology was consulted. Care was discussed with the patient. We'll give Lovenox for DVT prophylaxis. Encouraged to bed. Repeat labs in the morning. Care was discussed with the patient. Past Medical History Past Medical History: Asthma Additional Past Medical History / Comment(s): obesity History of Any Multi-Drug Resistant Organisms: None Reported Past Surgical History: Cholecystectomy, Orthopedic Surgery Additional Past Surgical History / Comment(s): d&c achillis tendon ortho Past Anesthesia/Blood Transfusion Reactions: No Reported Reaction Past Psychological History: No Psychological Hx Reported Smoking Status: Former smoker Past Alcohol Use History: None Reported Past Drug Use History: None Reported - Past Family History Mother Family Medical History: Thyroid Disorder Father Family Medical History: Diabetes Mellitus Additional Family Medical History / Comment(s): Heart Disease, Crohns Medications and Allergies Home Medications Medication Instructions Recorded Confirmed Type Acetaminophen-Codeine 300-30mg 0.5 - 1 tab PO Q6H PRN 06/25/19 06/25/19 History [Tylenol w/codeine #3] Multivitamin [Multivitamins Adult 2 tab PO DAILY 06/25/19 06/25/19 History Gummies] Sulfamethox-Tmp 800-160Mg [Bactrim 1 tab PO Q12HR #20 tab 06/26/19 Rx DS 800-160 mg] Allergies Allergy/AdvReac Type Severity Reaction Status Date / Time amoxicillin [From Augmentin] Allergy Anaphylaxis Verified 06/25/19 23:03 cefaclor [From Ceclor] Allergy ASTHMA Verified 06/25/19 23:03 ATTACK cephalexin monohydrate Allergy Rash/Hives Verified 06/25/19 23:03 [From Keflex] clavulanic acid Allergy Anaphylaxis Verified 06/25/19 23:03 [From Augmentin] Physical Exam Vitals: Vital Signs Temp Pulse Pulse Resp BP BP Pulse Ox 06/26/19 18:34 99.8 F H 118 H 06/26/19 16:00 98.0 F 95 20 118/73 98 06/26/19 07:00 97.6 F 89 24 119/78 98 06/26/19 01:21 98.5 F 85 16 118/81 97 06/26/19 00:06 99.2 F 99 20 124/68 97 06/25/19 22:18 98.5 F 104 H 20 133/73 98 Intake and Output 06/26/19 06/26/19 06/26/19 06:59 14:59 22:59 Output Total 525 1200 Balance -525 -1200 Output: Urine 525 1200 Other: Voiding Method Toilet Toilet Toilet Results CBC & Chem 7: 06/25/19 22:38 06/25/19 22:38 Labs: Abnormal Lab Results - Last 24 Hours (Table) 06/25/19 06/25/19 06/25/19 Range/Units 22:38 22:38 23:25 WBC 12.7 H (3.8-10.6) k/uL Neutrophils # 9.3 H (1.3-7.7) k/uL BUN 20 H (7-17) mg/dL Glucose 107 H (74-99) mg/dL Creatine Kinase 369 H (30-135) U/L Total Protein 6.2 L (6.3-8.2) g/dL Albumin 3.4 L (3.5-5.0) g/dL Urine Appearance Turbid H (Clear) Urine Protein 2+ H (Negative) Urine Blood Moderate H (Negative) Urine Nitrite Positive H (Negative) Ur Leukocyte Esterase Large H (Negative) Urine RBC 64 H (0-5) /hpf Urine WBC >182 H (0-5) /hpf Urine WBC Clumps Moderate H (None) /hpf Urine Bacteria Many H (None) /hpf Urine Mucus Occasional H (None) /hpf Microbiology - Last 24 Hours (Table) 06/25/19 23:25 Urine Culture - Preliminary Urine,Voided Thrombosis Risk Factor Assmnt - Choose All That Apply Any of the Below Risk Factors Present?: Yes Each Factor Represents 1 point: Obesity (BMI >25), Oral contraceptives or hormone replacement therapy, Varicose veins Other Risk Factors: No Thrombosis Risk Factor Assessment Total Risk Factor Score: 3 Thrombosis Risk Factor Assessment Level: Moderate Risk
[2019-06-26] MEDS: ACETAMINOPHEN TAB 325 MG TAB PO PRN (19:22)
[2019-06-26] MEDS: LACTATED RINGERS 1,000 ML IV SCH (19:22)
[2019-06-27] MEDS ORDERED: LEVOFLOXACIN 750MG-D5W PMX 750 MG in DEXTROSE/WATER 1 150ML.BAG IVPB SCH (00:15)
[2019-06-27] MEDS: LACTATED RINGERS 1,000 ML IV SCH ×3 (01:49→17:42)
[2019-06-27 05:49] LABS: HCT 33.2 % (34.0-46.0); HGB 11.1 gm/dL (11.4-16.0); MCH 29.2 pg (25.0-35.0); MCHC 33.4 g/dL (31.0-37.0); MCV 87.5 fL (80.0-100.0); Mean Platelet Volume 8.2; Platelet Count 168 k/uL (150-450); RBC 3.79 m/uL (3.80-5.40); RDW 13.4 % (11.5-15.5); WBC 6.1 k/uL (3.8-10.6)
[2019-06-27 05:58] LABS: African American GFR (CKD) >90 (>60 ml/min/1.73 sqM); Anion Gap 6 mmol/L; Blood Urea Nitrogen 13 mg/dL (7-17); Calcium 8.6 mg/dL (8.4-10.2); Carbon Dioxide 24 mmol/L (22-30); Chloride 109 mmol/L (98-107); Glucose 93 mg/dL (74-99); Potassium 4.8 mmol/L (3.5-5.1); Sodium 139 mmol/L (137-145)
--- NOTE | 2019-06-27 15:30 | P.PN ---
Subjective This is a 29-year-old patient of Dr. Herrera. Patient on Saturday that is 5 days ago started with having chills. By Saturday symptoms became worse. Started having nausea vomiting. And CENTRAL abdominal pain diffuse. Started also having urinary frequency and a strong urine. Started becoming much worse. Decided to come to the ER. Found to have a very infected urine and admitted with acute pyelonephritis. Computed tomography scan of the abdomen also did show right kidney stone. Patient started on IV fluids IV antibiotics. Admitted for the s fabiola. Did receive IV Levaquin in the ER. Breasts the patient this morning she was feeling a bit better. Daily some breakfast and lunch. Patient had a section 2 months ago. It is partly breast-feeding. And partly using formula for baby 06/27/2019 pt is lying in bed comfortable not in distress. Her abdominal pain is improved. Patient is followed closely by urology team for her right ureteral stone and recommended outpatient follow-up for stone removal, patient is aware of this yoni n and she intends to follow up with her urologist upon discharge. Yesterday evening she had a fever of 100.8, this morning patient is afebrile and his vitals are stable. Leukocytosis is improving down to 6.1K compared to 12.7 K on admission. Creatinine is normal Objective - Vital Signs Vital signs: Vital Signs Temp 97.9 F 06/27/19 12:15 Pulse 100 06/27/19 12:15 Resp 18 06/27/19 12:15 BP 116/77 06/27/19 12:15 Pulse Ox 97 06/27/19 12:15 Intake & Output 06/26/19 06/27/19 06/27/19 18:59 06:59 18:59 Intake Total 720 Output Total 1200 Balance -1200 720 Intake: Oral 720 Output: Urine 1200 Other: Voiding Method Toilet Toilet Toilet # Voids 1 - Exam GENERAL: The patient is alert and oriented x3, not in any acute distress. Well developed, well nourished. HEENT: Pupils are round and equally reacting to light. EOMI. No scleral icterus. No conjunctival pallor. Normocephalic, atraumatic. No pharyngeal erythema. No thyromegaly. CARDIOVASCULAR: S1 and S2 present. No murmurs, rubs, or gallops. PULMONARY: Chest is clear to auscultation, no wheezing or crackles. ABDOMEN: Soft, nontender, nondistended, normoactive bowel sounds. No palpable organomegaly. MUSCULOSKELETAL: No joint swelling or deformity. EXTREMITIES: No cyanosis, clubbing, or pedal edema. NEUROLOGICAL: Gross neurological examination did not reveal any focal deficits. SKIN: No rashes. no petechiae. - Labs CBC & Chem 7: 06/27/19 05:34 06/27/19 05:34 Labs: Abnormal Lab Results - Last 24 Hours (Table) 06/27/19 06/27/19 Range/Units 05:34 05:34 RBC 3.79 L (3.80-5.40) m/uL Hgb 11.1 L (11.4-16.0) gm/dL Hct 33.2 L (34.0-46.0) % Chloride 109 H (98-107) mmol/L Microbiology - Last 24 Hours (Table) 06/25/19 23:25 Urine Culture - Preliminary Urine,Voided Assessment and Plan Assessment: -Bilateral acute pyelonephritis, UTI, causing early sepsis, POA -Large right kidney stone -Patient had a giving to a child 2 months ago and patient's partly breast-feeding -Morbid obesity BMI 41.2 -Intermittent asthma, not active issue now Plan: This is a pleasant 29 years old female, who presents because of UTI and right- sided pyelonephritis. Follow-up with urology recommendation. Continue with antibiotics. Continue with IV fluid. Follow-up urine culture.Labs and medication were reviewed.. Continue same treatment. Continue with symptomatic treatment. Resume home medication. Monitor lytes and vitals. DVT and GI prophylaxis. Further recommendations of the clinical course of the patient DVT prophylaxis: Subcutaneous heparin GI Prophylaxis: Pepcid PT/OT: Pending Prognosis is guarded
[2019-06-27] MEDS: LEVOFLOXACIN 750MG-D5W PMX 750 MG in DEXTROSE/WATER 1 150ML.BAG IVPB SCH (17:42)
[2019-06-27] MEDS: FAMOTIDINE 20 MG/2 ML VIAL IV SCH (21:49)
[2019-06-27] MEDS: HEPARIN SODIUM,PORCINE 5,000 UNIT/ML 1 ML VIAL SQ SCH (21:49)
[2019-06-28] MEDS: LACTATED RINGERS 1,000 ML IV SCH (04:39)
[2019-06-28 07:12] LABS: Basophils % (A) 0 %; Eosinophils # (A) 0.2 k/uL (0-0.7); Eosinophils % (A) 3 %; HCT 35.8 % (34.0-46.0); Lymphocytes % (A) 17 %; MCH 29.2 pg (25.0-35.0); MCHC 33.6 g/dL (31.0-37.0); MCV 86.8 fL (80.0-100.0); Mean Platelet Volume 7.4; Monocytes # (A) 0.4 k/uL (0-1.0); Monocytes % (A) 7 %; Neutrophils # (A) 4.1 k/uL (1.3-7.7); Neutrophils % (A) 71 %; Platelet Count 262 k/uL (150-450); RBC 4.12 m/uL (3.80-5.40); RDW 13.5 % (11.5-15.5); WBC 5.8 k/uL (3.8-10.6)
[2019-06-28 07:31] LABS: African American GFR (CKD) >90 (>60 ml/min/1.73 sqM); Anion Gap 7 mmol/L; Blood Urea Nitrogen 12 mg/dL (7-17); Calcium 9.3 mg/dL (8.4-10.2); Carbon Dioxide 30 mmol/L (22-30); Chloride 105 mmol/L (98-107); Glucose 109 mg/dL (74-99); Potassium 5.1 mmol/L (3.5-5.1); Sodium 142 mmol/L (137-145)
--- NOTE | 2019-06-28 10:13 | P.PN ---
Subjective This is a 29-year-old patient of Dr. Herrera. Patient on Saturday that is 5 days ago started with having chills. By Saturday symptoms became worse. Started having nausea vomiting. And CENTRAL abdominal pain diffuse. Started also having urinary frequency and a strong urine. Started becoming much worse. Decided to come to the ER. Found to have a very infected urine and admitted with acute pyelonephritis. Computed tomography scan of the abdomen also did show right kidney stone. Patient started on IV fluids IV antibiotics. Admitted for the s fabiola. Did receive IV Levaquin in the ER. Breasts the patient this morning she was feeling a bit better. Daily some breakfast and lunch. Patient had a section 2 months ago. It is partly breast-feeding. And partly using formula for baby 06/27/2019 pt is lying in bed comfortable not in distress. Her abdominal pain is improved. Patient is followed closely by urology team for her right ureteral stone and recommended outpatient follow-up for stone removal, patient is aware of this yoni n and she intends to follow up with her urologist upon discharge. Yesterday evening she had a fever of 100.8, this morning patient is afebrile and his vitals are stable. Leukocytosis is improving down to 6.1K compared to 12.7 K on admission. Creatinine is normal 06/28/2019 06/28/2019 Patient line in bed comfortable. Her abdominal pain is improving, no nausea vomiting, tolerating diet well. No dysuria. Patient remains on IV fluids with gentle hydration. She remains on Levaquin however her urine culture is a still pending. No more fever since yesterday. Objective - Vital Signs Vital signs: Vital Signs Temp 97.4 F L 06/28/19 04:30 Pulse 80 06/28/19 04:30 Resp 18 06/28/19 08:00 BP 114/76 06/28/19 04:30 Pulse Ox 98 06/28/19 04:30 Intake & Output 06/27/19 06/28/19 06/28/19 18:59 06:59 18:59 Intake Total 720 480 Balance 720 480 Intake: Oral 720 480 Other: Voiding Method Toilet Toilet # Voids 2 - Exam GENERAL: The patient is alert and oriented x3, not in any acute distress. Well developed, well nourished. HEENT: Pupils are round and equally reacting to light. EOMI. No scleral icterus. No conjunctival pallor. Normocephalic, atraumatic. No pharyngeal erythema. No thyromegaly. CARDIOVASCULAR: S1 and S2 present. No murmurs, rubs, or gallops. PULMONARY: Chest is clear to auscultation, no wheezing or crackles. ABDOMEN: Soft, nontender, nondistended, normoactive bowel sounds. No palpable organomegaly. MUSCULOSKELETAL: No joint swelling or deformity. EXTREMITIES: No cyanosis, clubbing, or pedal edema. NEUROLOGICAL: Gross neurological examination did not reveal any focal deficits. SKIN: No rashes. no petechiae. - Labs CBC & Chem 7: 06/28/19 06:47 06/28/19 06:47 Labs: Abnormal Lab Results - Last 24 Hours (Table) 06/28/19 Range/Units 06:47 Glucose 109 H (74-99) mg/dL Microbiology - Last 24 Hours (Table) 06/25/19 23:25 Urine Culture - Preliminary Urine,Voided Gram Neg Bacilli Assessment and Plan Assessment: -Bilateral acute pyelonephritis, UTI, causing early sepsis, POA -Large right kidney stone -Patient had a giving to a child 2 months ago and patient's partly breast-feeding -Morbid obesity BMI 41.2 -Intermittent asthma, not active issue now Plan: This is a pleasant 29 years old female, who presents because of UTI and right- sided pyelonephritis. Follow-up with urology recommendation. Continue with antibiotics. Continue with IV fluid. Follow-up urine culture.Labs and medication were reviewed.. Continue same treatment. Continue with symptomatic treatment. Resume home medication. Monitor lytes and vitals. DVT and GI prophylaxis. Further recommendations of the clinical course of the patient DVT prophylaxis: Subcutaneous heparin GI Prophylaxis: Pepcid PT/OT: Pending Prognosis is guarded
[2019-06-28] MEDS: HEPARIN SODIUM,PORCINE 5,000 UNIT/ML 1 ML VIAL SQ SCH ×2 (11:08→20:23)
[2019-06-28] MEDS: FAMOTIDINE 20 MG/2 ML VIAL IV SCH ×2 (11:08→20:23)
[2019-06-28] MEDS: ACETAMINOPHEN TAB 325 MG TAB PO PRN (14:37)
[2019-06-28] MEDS: LEVOFLOXACIN 750MG-D5W PMX 750 MG in DEXTROSE/WATER 1 150ML.BAG IVPB SCH (17:46)
[2019-06-29] MEDS: LACTATED RINGERS 1,000 ML IV SCH (00:35)
[2019-06-29 09:02] VITALS: BP 129/90; PULSE 74; RESP 12; TEMP 98.1
[2019-06-29] MEDS: FAMOTIDINE 20 MG/2 ML VIAL IV SCH (09:04)
[2019-06-29] MEDS: HEPARIN SODIUM,PORCINE 5,000 UNIT/ML 1 ML VIAL SQ SCH (09:04)
--- NOTE | 2019-06-29 09:52 | P.DS ---
Providers Date of admission: 06/28/19 15:00 Attending physician: Nato Garrett Consults: 06/26/19 10:31 Consult Physician Routine Consulting Provider: Gee Dolan Consult Reason/Comments: pylo, stone on ct scan Do you want consulting provider notified?: Yes Primary care physician: Rashid Herrera [facility] Course: Diagnoses: -Bilateral acute pyelonephritis approximately on the right side, UTI, causing early sepsis -Large right kidney stone -Patient had a giving to a child 2 months ago and patient's partly breast-feeding -Morbid obesity BMI 41.2 -Intermittent asthma, not active issue now Hospital course: This is a 29-year-old patient of Dr. Herrera. With past medical history of asthma and obesity. Who presents because of nausea vomiting and abdominal pain. Patient was found to have acute pyelonephritis mainly on the right side.Computed tomography scan of the abdomen also did show right kidney stone. Patient has been evaluated by urologist who recommended out patient follow-up this month for removal of her renal stone with possible therapy options including ureteroscopy with lithotripsy, ESWL and percutaneous nephrostolithotomy. Patient responded to treatment well with no more nausea vomiting, she is tolerating diet well. Her abdominal pain has resolved. On discharge she denies dysuria and other urinary symptoms. No flank tenderness or CVA tenderness. Vision is afebrile. And her white cell count is within normal limits at 5.8K. Creatinine normal at 0.9. And vitals are stable urine culture is growing E. coli which is sensitive to many antibiotics including ceftriaxone and superior oxide. Patient will be discharged on a short course of Bactrim 10 days prescribed to her by the urologist. Patient was counseled not to breast-feed if possible for risk of implant exposure to the drug to 2 days after finishing her therapy and/or to speak with her doctor first and she agrees Patient was cleared for discharge by urology Problems and management plan were discussed with the patient and he verbalized understanding and acceptance Patient was found stable and can be discharged home however he needs follow-up as an outpatient. Patient was instructed to follow up with PCP within one week and patient agrees. Patient agrees with the appointments made for her with the radiologist that she will follow up Gen: patient is a AAOx3, no distress CVS: S1-S2, RRR, no murmur Lungs: B/L CTA, no wheezing Abdomen: soft, no distention, no tenderness, positive bowel sounds Extremity: no leg edema or induration Time spent more than 35 minutes Patient Condition at Discharge: Fair Plan - Discharge Summary Discharge Rx Participant: No New Discharge Prescriptions: New Sulfamethox-Tmp 800-160Mg [Bactrim DS 800-160 mg] 1 tab PO Q12HR #20 tab Continue Acetaminophen-Codeine 300-30mg [Tylenol w/codeine #3] 0.5 - 1 tab PO Q6H PRN PRN Reason: Pain Multivitamin [Multivitamins Adult Gummies] 2 tab PO DAILY Discharge Medication List Acetaminophen-Codeine 300-30mg [Tylenol w/codeine #3] 0.5 - 1 tab PO Q6H PRN 06/25/19 [History] Multivitamin [Multivitamins Adult Gummies] 2 tab PO DAILY 06/25/19 [History] Sulfamethox-Tmp 800-160Mg [Bactrim DS 800-160 mg] 1 tab PO Q12HR #20 tab 06/26/19 [Rx] Follow up Appointment(s)/Referral(s): Angel Dawkins MD [STAFF PHYSICIAN] - 07/13/19 1:40 pm Rashid Herrera MD [Primary Care Provider] - 06/29/19 11:00 am (Saturday at 11am. ) Patient Instructions/Handouts: Kidney Infection (DC) Activity/Diet/Wound Care/Special Instructions: Continue your regular diet. If diarrhea continues try the B.R.A.T diet. Fluids are always encouraged. Return to the ER if your symptoms worsen or return, or if you have fevers that you can not control at home. Call your PCP with any questions, comments or concerns.
== END 2019-06-29 11:17 | disposition home or self-care (01) | DRG 872 ==
LOC: EC 22:08 → 6PED 06-26 00:02 → OBSVTOIN 06-28 15:00
PROVIDERS: ADMIT Hospitalist; ATTEND Hospitalist
DX: A41.9 Sepsis, unspecified organism (principal); N10 Acute pyelonephritis; Z68.41 Body mass index [BMI] 40.0-44.9, adult; E66.01 Morbid (severe) obesity due to excess calories; N20.0 Calculus of kidney; N30.90 Cystitis, unspecified without hematuria; Z79.899 Other long term (current) drug therapy; Z90.49 Acquired absence of other specified parts of digestive tract; Z98.891 History of uterine scar from previous surgery; Z98.890 Other specified postprocedural states; Z87.891 Personal history of nicotine dependence; Z88.1 Allergy status to other antibiotic agents; Z88.0 Allergy status to penicillin; Z83.49 Family history of other endocrine, nutritional and metabolic diseases; Z83.3 Family history of diabetes mellitus; Z83.79 Family history of other diseases of the digestive system; Z82.49 Family history of ischemic heart disease and other diseases of the circulatory system; J45.20 Mild intermittent asthma, uncomplicated
CPT/HCPCS: 36415; 74177; 80048; 80053; 81001; 82150; 82550; 83605; 83690; 84703; 85025; 85027; 87077; 87086; 87186; 96361; 96374; 96375; 99285

== ENCOUNTER → 2019-10-01 | Outpatient (CLI) | payer OTHER ==
[2019-10-01 08:29] LABS: Basophils % (A) 0 %; Eosinophils # (A) 0.4 k/uL (0-0.7); Eosinophils % (A) 4 %; HCT 45.8 % (34.0-46.0); HGB 15.3 gm/dL (11.4-16.0); Lymphocytes # (A) 1.9 k/uL (1.0-4.8); Lymphocytes % (A) 22 %; MCH 28.4 pg (25.0-35.0); MCHC 33.4 g/dL (31.0-37.0); Mean Platelet Volume 9.6; Monocytes # (A) 0.4 k/uL (0-1.0); Monocytes % (A) 5 %; Neutrophils # (A) 5.8 k/uL (1.3-7.7); Neutrophils % (A) 67 %; Platelet Count 220 k/uL (150-450); RBC 5.39 m/uL (3.80-5.40); RDW 13.4 % (11.5-15.5); WBC 8.7 k/uL (3.8-10.6)
[2019-10-01 08:36] LABS: African American GFR (CKD) >90 (>60 ml/min/1.73 sqM); Anion Gap 8 mmol/L; Blood Urea Nitrogen 17 mg/dL (7-17); Calcium 9.4 mg/dL (8.4-10.2); Carbon Dioxide 23 mmol/L (22-30); Chloride 108 mmol/L (98-107); Glucose 108 mg/dL (74-99); Non-African American GFR(CKD) >90 (>60 ml/min/1.73 sqM); Sodium 139 mmol/L (137-145)
[2019-10-01 08:41] LABS: Potassium 4.8 mmol/L (3.5-5.1)
== END | disposition home or self-care (01) ==
LOC: LABPAT 08:08
PROVIDERS: ATTEND Urology
DX: Z01.812 Encounter for preprocedural laboratory examination (principal); N20.0 Calculus of kidney
CPT/HCPCS: 36415; 80048; 85025

== ENCOUNTER 2019-10-06 10:57 | Observation (INO) | payer OTHER ==
[2019-09-30 16:03] VITALS: BMI 43.0
--- NOTE | 2019-10-05 16:47 | P.HPIHPCON ---
History of Present Illness H&P Date: 10/06/19 Chief Complaint: right sided renal stone Ms Pratt is 29 yo female with hx of 1.7 cm right sided renal stone, I discussed with her the option of ureteroscopy, and PCNL. I discussed with her the risk and benefit of each approach. I discussed with her the risk of bleeding, infection and injury to nearby organs which include but not limited to lung, colon, bowel and liver. I also discussed with her the risk from anesthesia. She understood all risks and agreed to proceed Consent for Procedure: I have explained the operation/procedure to the patient, including the risks, benefits, side effects, alternative therapies (including not receiving the proposed treatment or service), the likelihood of the patient achieving his/her goals, and potential recuperation problems for the procedure/sedation/analgesia, as well as any blood products, if indicated. I also explained to the patient the risks, benefits and side effects of the alternatives, as well as the risks related to not receiving the proposed procedure, care, treatment, or services. - Constitutional Constitutional: Denies chills, Denies fever Past Medical History Past Medical History: Asthma Additional Past Medical History / Comment(s): adm to [facility] in Jun. for pyelonephritis, kidney stone History of Any Multi-Drug Resistant Organisms: None Reported Past Surgical History: Section, Cholecystectomy, Orthopedic Surgery Additional Past Surgical History / Comment(s): d&c, right heel repair of fx. w/plate & screws Past Anesthesia/Blood Transfusion Reactions: No Reported Reaction Smoking Status: Former smoker - Past Family History Mother Family Medical History: Thyroid Disorder Father Family Medical History: Diabetes Mellitus Additional Family Medical History / Comment(s): Heart Disease, Crohns Medications and Allergies Home Medications Medication Instructions Recorded Confirmed Type Albuterol Inhaler [Ventolin Hfa 1 - 2 puff INHALATION RT-Q6H PRN 09/30/19 09/30/19 History Inhaler] Etonogestrel [Nexplanon] 68 mg SQ DIRECTED 09/30/19 09/30/19 History traMADol HCL [Ultram] 50 mg PO Q6HR PRN 09/30/19 09/30/19 History Allergies Allergy/AdvReac Type Severity Reaction Status Date / Time amoxicillin [From Augmentin] Allergy Anaphylaxis Verified 09/30/19 12:51 cefaclor [From Ceclor] Allergy ASTHMA Verified 09/30/19 12:51 ATTACK cephalexin monohydrate Allergy Rash/Hives Verified 09/30/19 12:51 [From Keflex] clavulanic acid Allergy Anaphylaxis Verified 09/30/19 12:51 [From Augmentin] Surgical - Exam - General well developed, well nourished, no distress - Respiratory normal expansion, normal respiratory effort - Abdomen Abdomen: soft, non tender Assessment and Plan Assessment: 29 yo female with 1.7 cm right sided renal stone -OR for R PCNL
[~2019-10-06 10:57] MED LIST: CIPROFLOXACIN/DEXTROSE PMX 400 MG in DEXTROSE/WATER 1 200ML.BAG IVPB ONE; DEXAMETHASONE SOD PHOSPHATE 10 MG/ML 1 ML VIAL IV ONE; GENTAMICIN 130 MG in SODIUM CHLORIDE 0.9% 100 ML IVPB ONE; MIDAZOLAM 2 MG/2 ML VIAL IV PRN; ONDANSETRON 4 MG/2 ML VIAL IVP ONE; SCOPOLAMINE 1.5MG/72HR PATCH TRANSDERM ONE
--- NOTE | 2019-10-06 11:45 | XR ---
KUB HISTORY: Kidney stone Frontal KUB submitted on 2 images, correlation to prior CT scan dated 06/25/2019 There is calcification superimposed over the right hemipelvis measuring 2.3 cm. Surgical clips presen t right upper quadrant. Punctate calcification present of the lower pole left kidney. No evident pneu moperitoneum or bowel obstruction. IMPRESSION: Bilateral nephrolithiasis.
[2019-10-06] MEDS: LACTATED RINGERS 1,000 ML IV SCH ×2 (12:10→23:43)
[2019-10-06] MEDS ORDERED: LIDOCAINE 1% 20 ML VIAL (10MG/ML) FOR IV START INTRADERMA ONE (12:11)
[2019-10-06] MEDS ORDERED: fentaNYL (PF) 50 MCG/ML 2 ML AMP ONE (12:40)
[2019-10-06] MEDS ORDERED: MIDAZOLAM 2 MG/2 ML VIAL ONE (12:40)
[2019-10-06] MEDS ORDERED: LIDOCAINE 1% INJ 10MG/ML (20 ML MDV) ONE (12:40)
[2019-10-06] MEDS ORDERED: ROCURONIUM BROMIDE 10 MG/ML 5 ML VIAL IV ONE (12:40)
[2019-10-06] MEDS ORDERED: PROPOFOL 10 MG/ML 20 ML VIAL IV ONE (12:40)
[2019-10-06] MEDS ORDERED: NEOSTIGMINE 1 MG/ML 10 ML VIAL ONE (12:40)
[2019-10-06] MEDS ORDERED: ALBUTEROL INHALER 60 PUFF/8 GM INHALER INHALATION ONE (12:40)
[2019-10-06] MEDS ORDERED: SUCCINYLCHOLINE CHLORIDE 100 MG/5 ML SYR IV ONE (12:40)
[2019-10-06] MEDS ORDERED: GLYCOPYRROLATE 0.2 MG/ML 2 ML VIAL ONE (12:40)
[2019-10-06] MEDS ORDERED: ONDANSETRON 4 MG/2 ML VIAL IVP PRN (12:55)
[2019-10-06] MEDS ORDERED: ACETAMINOPHEN TAB 325 MG TAB PO PRN (12:55)
[2019-10-06] MEDS ORDERED: MAG HYDROX/AL HYDROX/SIMETH 30 ML CUP PO PRN (12:55)
[2019-10-06] MEDS ORDERED: ALBUTEROL NEBULIZED 2.5 MG/3 ML INHALATION PRN (12:58)
[2019-10-06] MEDS ORDERED: IOHEXOL 350 MG/ML (PER ML) 100ML BTL INJ ONE (13:42)
[2019-10-06] MEDS ORDERED: LACTATED RINGERS 1,000 ML IV ONE (15:48)
[2019-10-06] MEDS ORDERED: BUPIVACAINE (PF) 0.25% 30 ML VIAL SQ ONE (16:17)
[2019-10-06] MEDS ORDERED: IOPAMIDOL-370 125ML BTL INJ ONE (16:17)
--- NOTE | 2019-10-06 16:40 | P.OP ---
Date of Procedure: 10/06/19 Preoperative Diagnosis: right renal calculi Postoperative Diagnosis: same Procedure(s) Performed: Cystoscopy, Right ureteral catherization, PCNL(>2 cm), anterograde nephrostogram, Anterograde stent placement and nephrostomy tube placement. Implants: 6Fr X 26 cm stent 8 Fr nephrostomy tube Anesthesia: FRANCISCO Surgeon: Angel Dawkins Estimated Blood Loss (ml): 150 Pathology: other (right renal stone) Condition: stable Disposition: PACU Indications for Procedure: Ms Pratt is 29 yo female with hx of 1.7 cm right sided renal stone, repeat KUB prior to surgery showed stone has increased to 2.3 cm in size compared to previous CT from 06/2019. I discussed with her the option of ureteroscopy, and PCNL. I discussed with her the risk and benefit of each approach. I discussed with her the risk of bleeding, infection and injury to nearby organs which include but not limited to lung, colon, bowel and liver. I also discussed with her the risk from anesthesia. She understood all risks and agreed to proceed Operative Findings: large right sided renal stone severe Narrowing at the right UPJ Description of Procedure: The patient was brought to the operating room, general anesthesia was induced. She was prepped and draped in sterile fashion and placed supine frog leg position. the right ureteral orfice was identified and intubated with 0.035 motion wire. The cystoscope was removed with wire in place.A 7 Fr baloon ocluded catheter was passed over the wire and advanced to the proximal ureter, a olmstead catheter was placed in the bladder At this time the patient was placed in prone position, and prepped and draped in sterile fashion. A large renal calculi was visualized on fluoroscopy. At this time Dr Aponte performed percutaneous access on the right kidney. Of note there was difficulty passing a wire down the ureter. Please see his dictation for his portion of procedure. Once access was obtained the The tract was dilated using the balloon dilators, Next a 24-Togolese access sheath was advanced over the balloon. The balloon was removed with the sheath in place. Next a rigid nephroscope was inserted through the sheath and large calculi was visualized. of note patient had very friable and edematous tissue. The stone was broken up into smaller fragments using the ultrasound lithotripter. Stone fragments were removed and sent for stone analysis. Repeat nephroscopy was performed using the rigid nephroscope and flexibile cystoscope Showed no injury to the UPJ or renal pelvis, contrast extravisation or any residual stone. Of note patient had severe narrowing of the UPJ. I attempted to pass wire through the nephroscope and down the ureter but resistance was met. At this time a sensor wire was advanced through the ureteral catheter and was advanced up the kindey. The wire was grasped and clamped. At this point a through and through access was obatined. I attempted to pass a second wire down the ureter, but was unable to secondary to patient narrowed UPJ. Next a 6- Togolese by 26 cm stent was passed over the wire and curl was visualized in the bladder and kidney under fluoroscopy. Next a sensor wire was advanced through the scope and into the renal pelvis. Next a 10 Fr nephrostomy tube was passed over the second wire and into the renal pelvis. Anterograde neprostogram showed no contrast extra and showed the the nephrostomy tube is in good location. The neprhostomy was secured to the skin using 2-0 Vicryl. The patient was awoken from anesthesia and taken to the recovery room in stable condition.
[2019-10-06] MEDS: HYDROmorphone 0.5 MG/0.5 ML SYRINGE IVP PRN ×3 (16:55→20:47)
[2019-10-06] MEDS: DEXTROSE 5%-0.45% NACL 1,000 ML IV SCH ×2 (17:05→23:39)
[2019-10-06] MEDS: HEPARIN SODIUM,PORCINE 5,000 UNIT/ML 1 ML VIAL SQ SCH ×2 (17:09→23:41)
[2019-10-06] MEDS: KETOROLAC 30 MG/ML 1 ML VIAL IVP SCH ×2 (18:20→23:38)
[2019-10-06] MEDS: CIPROFLOXACIN HCL 500 MG TAB PO SCH (20:59)
[2019-10-06 21:23] LABS: HCT 43.1 % (34.0-46.0); HGB 13.9 gm/dL (11.4-16.0); MCH 27.7 pg (25.0-35.0); MCHC 32.4 g/dL (31.0-37.0); MCV 85.7 fL (80.0-100.0); Mean Platelet Volume 9.4; Platelet Count 218 k/uL (150-450); RBC 5.03 m/uL (3.80-5.40); RDW 13.5 % (11.5-15.5)
[2019-10-06 21:32] LABS: African American GFR (CKD) >90 (>60 ml/min/1.73 sqM); Anion Gap 8 mmol/L; Carbon Dioxide 24 mmol/L (22-30); Chloride 106 mmol/L (98-107); Non-African American GFR(CKD) >90 (>60 ml/min/1.73 sqM); Potassium 4.9 mmol/L (3.5-5.1); Sodium 138 mmol/L (137-145)
[2019-10-07] MEDS: HYDROmorphone 0.5 MG/0.5 ML SYRINGE IVP PRN ×2 (01:08→04:39)
[2019-10-07] MEDS: KETOROLAC 30 MG/ML 1 ML VIAL IVP SCH ×3 (05:37→17:02)
[2019-10-07] MEDS: HEPARIN SODIUM,PORCINE 5,000 UNIT/ML 1 ML VIAL SQ SCH ×2 (08:02→17:02)
[2019-10-07] MEDS: CIPROFLOXACIN HCL 500 MG TAB PO SCH ×2 (08:02→21:06)
[2019-10-07] MEDS: DEXTROSE 5%-0.45% NACL 1,000 ML IV SCH (08:03)
--- NOTE | 2019-10-07 08:26 | FL ---
EXAMINATION TYPE: FL Perc Nephrostomy New Access DATE OF EXAM: 10/06/2019 COMPARISON: CT scan 06/25/2019 HISTORY: Right renal pelvic stone Procedure had been discussed with the patient by Dr. Viveros, risks, benefits, alternatives, were dis cussed and any questions were answered. Informed consent was obtained. The patient was in a semipro ne position prepped and draped on the OR table in the usual sterile fashion. Utilizing a 15 cm lengt h Chiba needle a single pass was made into a lower pole posterior calyx under fluoroscopic guidance. An 0.018 guidewire is passed through the needle and there was placement of a 6-Slovak catheter sheat h system. There was conversion to a 0.035 system was performed with passage of a guidewire into the ureter utilizing a directional catheter. A second safety wire was placed. Remaining portion of pro cedure performed by . Approximately 7 minutes and 26 seconds of fluoroscopy was provided. IMPRESSION: 1. Successful intraoperative right nephrostomy prior to nephrolithotomy.
--- NOTE | 2019-10-07 09:56 | P.PN ---
Subjective Progress Note Date: 10/07/19 Principal diagnosis: Right renal calculi No acute overnight event, having pain in the right flank. Has not ambulated yet. Objective - Vital Signs Vital signs: Vital Signs Temp 98.4 F 10/07/19 07:00 Pulse 82 10/07/19 07:00 Resp 14 10/07/19 07:00 BP 119/77 10/07/19 07:00 Pulse Ox 95 10/07/19 07:00 Intake & Output 10/06/19 10/07/19 10/07/19 18:59 06:59 18:59 Intake Total 1803.25 600 Output Total 325 560 Balance 1478.25 40 Weight 126.9 kg Intake: IV 1803.25 Intake, IV Titration 600 Amount Dextrose 5%-0.45% NaCl 1, 600 000 ml @ 100 mls/hr IV . Q10H [place] Rx#:[id number] Output: Drainage 360 Right Back 360 Urine 175 200 Estimated Blood Loss 150 Other: Voiding Method Indwelling Catheter - Neck Neck: Present: normal ROM - Gastrointestinal General gastrointestinal: Present: soft. Absent: distended - Genitourinary Genitourinary Comment(s): olmstead with blood tinged urine PCN with light red urine - Labs CBC & Chem 7: 10/06/19 20:48 10/06/19 20:48 Labs: Abnormal Lab Results - Last 24 Hours (Table) 10/06/19 Range/Units 20:48 WBC 16.0 H (3.8-10.6) k/uL Assessment and Plan Assessment: 29 yo female with right sided renal stone S/P R PCNL. Having pain this am Plan: -Pain control -D/C olmstead -Will plan on discharging home tomorrow
[2019-10-07] MEDS: traMADol 50 MG TAB PO PRN ×2 (14:03→21:06)
[2019-10-08] MEDS: DEXTROSE 5%-0.45% NACL 1,000 ML IV SCH (00:41)
[2019-10-08] MEDS: KETOROLAC 30 MG/ML 1 ML VIAL IVP SCH ×3 (00:45→12:14)
[2019-10-08] MEDS: HEPARIN SODIUM,PORCINE 5,000 UNIT/ML 1 ML VIAL SQ SCH ×2 (00:46→08:04)
[2019-10-08] MEDS: traMADol 50 MG TAB PO PRN (08:04)
[2019-10-08] MEDS: CIPROFLOXACIN HCL 500 MG TAB PO SCH (08:04)
[2019-10-08 08:27] VITALS: BP 121/79; RESP 17; TEMP 98.2
[2019-10-08] MEDS: HYDROmorphone 0.5 MG/0.5 ML SYRINGE IVP PRN (10:15)
[2019-10-08 11:55] VITALS: PULSE 104
--- NOTE | 2019-10-08 12:52 | P.DS ---
Providers Date of admission: 10/07/19 01:09 Attending physician: Angel Dawkins MD Primary care physician: [facility] Course: Ms Pratt is 29 yo female with hx of right sided renal stone, She underwent Right sided PCNL on 10/06. Please see op note dated 10/06 for full surgery details. She was admitted to the floor post operatively. Michaud was removed on POD #1. Patient was having flank pain on POD #1, which improved on POD #2. She was discharged home on POD #2. She was discharged home on POD #2 with nephrostomy tube. She will f/u in one week for PCN removal Plan - Discharge Summary Discharge Rx Participant: Yes New Discharge Prescriptions: New Ibuprofen 600 mg PO Q6H #20 tab Cephalexin [Keflex] 500 mg PO Q8HR #15 cap No Action traMADol HCL [Ultram] 50 mg PO Q6HR PRN PRN Reason: Pain Albuterol Inhaler [Ventolin Hfa Inhaler] 1 - 2 puff INHALATION RT-Q6H PRN PRN Reason: Dyspnea Etonogestrel [Nexplanon] 68 mg SQ DIRECTED Discharge Medication List Albuterol Inhaler [Ventolin Hfa Inhaler] 1 - 2 puff INHALATION RT-Q6H PRN 09/30/19 [History] Etonogestrel [Nexplanon] 68 mg SQ DIRECTED 09/30/19 [History] traMADol HCL [Ultram] 50 mg PO Q6HR PRN 09/30/19 [History] Cephalexin [Keflex] 500 mg PO Q8HR #15 cap 10/08/19 [Rx] Ibuprofen 600 mg PO Q6H #20 tab 10/08/19 [Rx] Follow up Appointment(s)/Referral(s): Angel Dawkins MD [STAFF PHYSICIAN] - 1 Week Activity/Diet/Wound Care/Special Instructions: No heavy lifting or straining Drink plenty of fluid You may shower but no baths
== END 2019-10-08 15:23 | disposition home or self-care (01) ==
LOC: OR 10:57 → 4SSUR 16:56 → OR 10-07 00:48 → 4SSUR 10-07 01:09
PROVIDERS: ADMIT Urology; ATTEND Urology
DX: N20.0 Calculus of kidney (principal); J45.909 Unspecified asthma, uncomplicated; Z87.891 Personal history of nicotine dependence; Z88.1 Allergy status to other antibiotic agents; Z83.49 Family history of other endocrine, nutritional and metabolic diseases; Z79.891 Long term (current) use of opiate analgesic; Z79.51 Long term (current) use of inhaled steroids; Z79.2 Long term (current) use of antibiotics; Z79.899 Other long term (current) drug therapy; Z83.3 Family history of diabetes mellitus; Z82.49 Family history of ischemic heart disease and other diseases of the circulatory system; Z84.89 Family history of other specified conditions
CPT/HCPCS: 94640; 81025; 86900; 86901; 80051; 82565; 85027; 86850; 82365; 50432; 74018; 52356; G0378 ×2; C1769 ×2; C1894; C1729; J2250; J1644 ×3; J1100; J2710; J2405; J2001; J3010; J1885 ×3; J1580; J0330; J2704; J1170 ×3; Q9967

== ENCOUNTER → 2019-10-30 | Outpatient (CLI) | payer OTHER ==
--- NOTE | 2019-10-30 14:25 | XR ---
EXAMINATION TYPE: XR chest 2V DATE OF EXAM: 10/30/2019 COMPARISON: 08/04/2015 TECHNIQUE: PA and lateral views submitted. HISTORY: Shortness of breath FINDINGS: The lungs are clear and there is no pneumothorax, pleural effusion, or focal pneumonia. No overt fa ilure. Heart size normal. Mild hypertrophic change of the spine. IMPRESSION: 1. No acute process.
== END | disposition home or self-care (01) ==
LOC: RADXRMAIN 13:46
PROVIDERS: ATTEND Urology
DX: R06.02 Shortness of breath (principal)
CPT/HCPCS: 71046

== ENCOUNTER 2019-11-02 12:31 | Emergency (ER) | payer OTHER ==
[2019-11-02 12:35] VITALS: TEMP 97.9
[2019-11-02] MEDS ORDERED: KETOROLAC 60 MG/2 ML VIAL IM STA (12:45)
--- NOTE | 2019-11-02 12:48 | ED ---
General Adult HPI - General Chief complaint: Chest Pain Stated complaint: Chest pain/vision loss in left eye Time Seen by Provider: 11/02/19 12:32 Source: patient, RN notes reviewed, old records reviewed Mode of arrival: ambulatory Limitations: no limitations - History of Present Illness Initial comments: This is a 29-year-old female presents emergency Department complaining of right upper chest pain. Patient states that sharp in nature comes in stabbing fashion and goes away after a few seconds. Patient states continues to occur was takes a deep breath or coughs it also seems to occur when she bends over. Patient states when it hurts she feels short of breath this was a pain goes away she has no shortness of breath. Patient states this started on October 06 and it continues. Patient denies any fever chills. Patient denies any nausea vomiting or diarrhea. Patient denies any abdominal pain. Patient denies a headache patient denies numbness weakness. - Related Data Home Medications Medication Instructions Recorded Confirmed Albuterol Inhaler [Ventolin Hfa 1 - 2 puff INHALATION RT-Q6H PRN 09/30/19 10/06/19 Inhaler] Etonogestrel [Nexplanon] 68 mg SQ DIRECTED 09/30/19 10/06/19 traMADol HCL [Ultram] 50 mg PO Q6HR PRN 09/30/19 10/06/19 Previous Rx's Medication Instructions Recorded Cephalexin [Keflex] 500 mg PO Q8HR #15 cap 10/08/19 Ibuprofen 600 mg PO Q6H #20 tab 10/08/19 Ibuprofen [Motrin] 600 mg PO Q6HR PRN #20 tab 11/02/19 Allergies Allergy/AdvReac Type Severity Reaction Status Date / Time amoxicillin [From Augmentin] Allergy Anaphylaxis Verified 11/02/19 12:32 cefaclor [From Ceclor] Allergy ASTHMA Verified 11/02/19 12:32 ATTACK cephalexin monohydrate Allergy Rash/Hives Verified 11/02/19 12:32 [From Keflex] clavulanic acid Allergy Anaphylaxis Verified 11/02/19 12:32 [From Augmentin] Review of Systems ROS Statement: Those systems with pertinent positive or pertinent negative responses have been documented in the HPI. ROS Other: All systems not noted in ROS Statement are negative. Past Medical History Past Medical History: Asthma Additional Past Medical History / Comment(s): adm to [facility] in Nov. for pyelonephritis, kidney stone History of Any Multi-Drug Resistant Organisms: None Reported Past Surgical History: Section, Cholecystectomy, Orthopedic Surgery Additional Past Surgical History / Comment(s): d&c, right heel repair of fx. w/plate & screws Past Anesthesia/Blood Transfusion Reactions: No Reported Reaction Past Psychological History: No Psychological Hx Reported Smoking Status: Former smoker Past Alcohol Use History: None Reported Past Drug Use History: None Reported - Past Family History Mother Family Medical History: Thyroid Disorder Father Family Medical History: Diabetes Mellitus Additional Family Medical History / Comment(s): Heart Disease, Crohns General Exam - General Exam Comments Initial Comments: GENERAL: Patient is well-developed and well-nourished. Patient is nontoxic and well- hydrated and is in no acute distress. ENT: Neck is soft and supple. No significant lymphadenopathy is noted. Oropharynx is clear. Moist mucous membranes. Neck has full range of motion without eliciting any pain. EYES: The sclera were anicteric and conjunctiva were pink and moist. Extraocular movements were intact and pupils were equal round and reactive to light. Eyelids were unremarkable. PULMONARY: Unlabored respirations. Good breath sounds bilaterally. No audible rales rhonchi or wheezing was noted. CARDIOVASCULAR: There is a regular rate and rhythm without any murmurs gallops or rubs. Patient has pain with palpation to the right upper chest wall. She states is same pain she's been feeling earlier ABDOMEN: Soft and nontender with normal bowel sounds. No palpable organomegaly was noted. There is no palpable pulsatile mass. SKIN: Skin is clear with no lesions or rashes and otherwise unremarkable. NEUROLOGIC: Patient is alert and oriented x3. Cranial nerves II through XII are grossly intact. Motor and sensory are also intact. Normal speech, volume and content. Symmetrical smile. MUSCULOSKELETAL: Normal extremities with adequate strength and full range of motion. No lower extremity swelling or edema. No calf tenderness. LYMPHATICS: No significant lymphadenopathy is noted PSYCHIATRIC: Normal psychiatric evaluation. Limitations: no limitations Course Vital Signs 11/02/19 12:32 Temperature 97.9 F Pulse Rate 72 Respiratory 18 Rate Blood Pressure 143/85 O2 Sat by Pulse 99 Oximetry Medical Decision Making - Medical Decision Making EKG shows normal sinus rhythm at 73 bpm NC interval is on a 32 QRS is under QT intervals 46 QTC is 447. EKG shows no ST segment elevation or depression. Chest x-ray shows no acute abnormality. I will begin to reevaluate the patient and she received Toradol was feeling better. Patient did not have complete relief however. Disposition Clinical Impression: Chest wall pain Disposition: HOME SELF-CARE Condition: Good Instructions (If sedation given, give patient instructions): Chest Wall Pain (ED) Prescriptions: Ibuprofen [Motrin] 600 mg PO Q6HR PRN #20 tab PRN Reason: For pain Is patient prescribed a controlled substance at d/c from ED?: No Referrals: Rashid Herrera MD [Primary Care Provider] - 1-2 days Time of Disposition: 13:35
--- NOTE | 2019-11-02 13:00 | XR ---
EXAMINATION TYPE: XR chest 2V DATE OF EXAM: 11/02/2019 COMPARISON: Prior chest x-ray 10/30/2019 HISTORY: Difficulty breathing TECHNIQUE: Frontal and lateral views of the chest are obtained. FINDINGS: There is no focal air space opacity, pleural effusion, or pneumothorax seen. The cardiac silhouette size is within normal limits. The osseous structures are intact. IMPRESSION: No acute cardiopulmonary process.
[2019-11-02 13:43] VITALS: BP 132/76; PULSE 89; RESP 16
== END 2019-11-02 13:40 | disposition home or self-care (01) ==
LOC: EC 12:31
DX: R07.89 Other chest pain (principal); J45.909 Unspecified asthma, uncomplicated; Z79.3 Long term (current) use of hormonal contraceptives; Z79.51 Long term (current) use of inhaled steroids; Z87.891 Personal history of nicotine dependence; Z88.0 Allergy status to penicillin; Z88.1 Allergy status to other antibiotic agents
CPT/HCPCS: 71046; 99285; 96372; J1885

== ENCOUNTER → 2020-09-21 | Outpatient (CLI) | payer OTHER ==
[2020-09-21 16:08] VITALS: BP 147/86; PULSE 88; RESP 18; TEMP 98.1; BMI 47.5
--- NOTE | 2020-09-21 17:10 | P.HPBAR ---
Bariatric H&P - History & Physicial H&P Date: 09/21/20 History & Physicial: Visit/CC: initial visit Patient initial contact: Initial weight: Initial weight in pounds: Height: 5 ft 7.25 in Initial BMI: Last weight: Current weight: 138.799 kg Current weight in pounds: 306.00 Current BMI: 47.5 [place] body weight (based on NIH guidelines): 61.802 kg Excess body weight loss: The patient is a 30 year-old F who presents for Bariatric Assessment. DATE OF SERVICE: 09/21/2020 REASON FOR CONSULTATION: Initial bariatric evaluation HISTORY OF PRESENT ILLNESS: Torri Pratt is a 30-year-old female who comes with lifelong morbid obesity. Her aunt had the sleeve and she may be looking into it too. She reports occasional gastroesophageal reflux disease. Her gallbladder is out due to gallstones. Her dad had troubles with weight including all relatives on her father's side. She reports her mother's side had normal weight. She reports osteoarthritis of the back, knees, and heel of the right foot. She is not on blood pressure medications. She denies current cholesterol problems. She denies diabetes. She denies active smoking. She denies blood clots in the past. She is on Adipex for weigth loss. She was on [employer] diet and lost the most weight but regained all of it. She has food allergy to onions. She denies problems with chronic diarrhea. She reports sleep apnea but not treated. At height of 5 feet 7.25 inches, her ideal body weight is 158 pounds. She comes in 35 pounds. Her body mass index is 47.6. She is 147 pounds overweight. PAST MEDICAL HISTORY: 1. Morbid obesity due to excess calories 2. Body mass index of 47.6, initial 3. Optic neuritis 4. Asthma 5. Gastroesophageal reflux disease 6. Osteoarthritis of the back 7. Osteoarthritis of the knee 8. Obstructive sleep apnea PAST SURGICAL HISTORY: 1. section 2. Cholecystectomy 3. Dilation and curettage 4. Right heel surgery HOME MEDICATIONS: Home Medications Medication Instructions Recorded Confirmed Albuterol Inhaler (Mhu) [Ventolin 1 - 2 puff INHALATION RT-Q6H PRN 09/30/19 09/22/20 Hfa Inhaler] Etonogestrel [Nexplanon] 68 mg SQ DIRECTED 09/30/19 09/22/20 Phentermine HCl [Adipex P] 15 mg PO [id number] 09/22/20 09/22/20 ALLERGIES: Allergies Allergy/AdvReac Type Severity Reaction Status Date / Time amoxicillin [From Augmentin] Allergy Anaphylaxis Verified 09/22/20 12:45 cefaclor [From Ceclor] Allergy ASTHMA Verified 09/22/20 12:45 ATTACK cephalexin monohydrate Allergy Rash/Hives Verified 09/22/20 12:45 [From Keflex] clavulanic acid Allergy Anaphylaxis Verified 09/22/20 12:45 [From Augmentin] SOCIAL HISTORY: Past tobacco use. FAMILY HISTORY: No family history of ulcerative colitis disease or Crohn's di sease. Family history of morbid obesity. No lupus in the family. No reports of stomach or esophageal cancer. REVIEW OF ORGAN SYSTEMS: CONSTITUTIONAL: HEENT: Denies any active troubles with hearing. Had optic neuritis. ENDOCRINE: No diabetes. No hypothyroidism. CARDIOVASCULAR: No past reports of palpitations or heart attacks or chest pain. RESPIRATORY: Has daytime somnolence. Has asthma. GASTROINTESTINAL: Denies any bright red blood per rectum. No diarrhea. No constipation. Has gastroesophageal reflux disease. GENITOURINARY: No bladder urgency. No recent blood in urine MUSCULOSKELETAL: Has lower back pain and joint pain. Has osteoarthritis of the knees. NEURO: No headaches. No seizure disorders. PSYCH: No depression. No suicidal ideation. RHEUMATOLOGIC: No lupus. No rheumatoid arthritis. HEMATOLOGIC: Denies any abnormal bleeding or bruising. SKIN: No rash. No skin cancer. PHYSICAL EXAM: VITAL SIGNS: Height 5 foot 7.25 inches, weight 305 pounds. BMI 47.6 Vital Signs Temp 98.1 F 09/21/20 16:05 Pulse 88 09/21/20 16:05 Resp 18 09/21/20 16:05 BP 147/86 09/21/20 16:05 Pulse Ox GENERAL: Well-developed in no acute distress. HEENT: No scleral icterus. Extraocular movements grossly intact. Hears conversational speech. No nasal drainage. NECK: Supple without lymphadenopathy. CHEST: Nonlabored respirations with equal bilateral excursions. CARDIOVASCULAR: Regular rate and regular rhythm. Distal 2+ pulses. ABDOMEN: Obese, soft, nontender, nondistended. MUSCULOSKELETAL: No clubbing, cyanosis. NEURO: No focal or lateralizing signs. Cranial nerves 2 through 12 grossly within normal limits. PSYCH: Appropriate affect. Alert and oriented to person, place and time. SKIN: Good skin turgor. Well perfused. ASSESSMENT: 1. Morbid obesity due to excess calories 2. Body mass index of 47.6, initial 3. Optic neuritis 4. Asthma 5. Gastroesophageal reflux disease 6. Osteoarthritis of the back 7. Osteoarthritis of the knee 8. Obstructive sleep apnea PLAN: 1. Surgical options including a band, gastric bypass, sleeve gastrectomy were described in detail. Alternatives such as gastric balloon including duodenal switch were described. She is looking into the sleeve gastrectomy. 2. The [place] bariatric surgical collaborative data and outcomes calculator were described with surgical options. 3. Recommend a bariatric metabolic panel to evaluate for micro- including macronutrient deficiencies. 4. For history of daytime somnolence, recommend evaluation and treatment for sleep apnea. 5. Dietary surveillance and counseling was reviewed. Increased protein intake over 65 grams daily advised. 6. Will need cardiac risk assessment. 7. Recommend medical risk assessment. 8. Psych assessment per insurance guidelines. 9. Recommend upper endoscopy. 10. Recommend 12-lead EKG. Thank you for this consultation. Past Medical History Past Medical History: Asthma Additional Past Medical History / Comment(s): adm to [facility] in Jun. for pyelonephritis, kidney stone/optic neuritis History of Any Multi-Drug Resistant Organisms: None Reported Past Surgical History: Section, Cholecystectomy, Orthopedic Surgery Additional Past Surgical History / Comment(s): d&c, right heel repair of fx. w/plate & screws Past Anesthesia/Blood Transfusion Reactions: No Reported Reaction Past Psychological History: No Psychological Hx Reported Smoking Status: Former smoker Past Alcohol Use History: None Reported Additional Past Alcohol Use History / Comment(s): quit smoking 10 yrs. ago, smoked 3-4 yrs. Past Drug Use History: None Reported - Past Family History Mother Family Medical History: Thyroid Disorder Father Family Medical History: Diabetes Mellitus Additional Family Medical History / Comment(s): Heart Disease, Crohns Surgical - Exam Vital Signs Temp Pulse Resp BP 98.1 F 88 18 147/86 09/21/20 16:05 09/21/20 16:05 09/21/20 16:05 09/21/20 16:05 Bariatric Checklist Checklist: Plan: Checklist: EGD: 1. Hiatal hernia: 2. H. Pylori: HgbA1c: Vitamin D: Smoking: Former smoker Primary care physician referral: FERNANDA Schmidt Psychiatry clearance: Cardiology clearance: Sleep study: Diet journal: VTE risk score: VTE risk level: Rehab needs at discharge:
== END | disposition home or self-care (01) ==
LOC: BARWHC3 15:30
PROVIDERS: ATTEND Surgery Plastic and Reconstructive Surgery
DX: E66.01 Morbid (severe) obesity due to excess calories (principal); J45.909 Unspecified asthma, uncomplicated; K21.9 Gastro-esophageal reflux disease without esophagitis; M47.9 Spondylosis, unspecified; G47.33 Obstructive sleep apnea (adult) (pediatric); M17.10 Unilateral primary osteoarthritis, unspecified knee; G58.8 Other specified mononeuropathies; Z68.42 Body mass index [BMI] 45.0-49.9, adult; Z88.1 Allergy status to other antibiotic agents; Z88.8 Allergy status to other drugs, medicaments and biological substances; Z79.899 Other long term (current) drug therapy; Z90.49 Acquired absence of other specified parts of digestive tract
CPT/HCPCS: 99211

== ENCOUNTER → 2020-11-23 | Outpatient (CLI) | payer OTHER ==
[2020-11-24 01:30] LABS: HCT 50.7 % (37.2-46.3); HGB 16.5 g/dL (12.0-15.0); MCH 28.7 pg (27.0-32.0); MCHC 32.5 g/dL (32.0-37.0); MCV 88.2 fL (80.0-97.0); Mean Platelet Volume 12.6 fL (9.5-12.2); Platelet Count 235 X 10*3/uL (140-440); RBC 5.75 X 10*6/uL (4.10-5.20); RDW 13.4 % (11.5-14.5); WBC 10.44 X 10*3/uL (4.50-10.00)
[2020-11-24 03:39] LABS: Ferritin 75.4 ng/mL (10.0-291.0)
[2020-11-24 03:41] LABS: Folate, Serum 5.8 ng/mL
[2020-11-24 04:02] LABS: Hemoglobin A1C 5.4 % (4.0-6.0)
[2020-11-24 04:20] LABS: % Iron Saturation 43.95 (12.00-45.00); African American GFR (CKD) 88.2 (60.0-200.0); Albumin/Globulin Ratio 2.63 (1.60-3.17); Anion Gap 10.7 mmol/L (4.00-12.00); Calcium 9.5 mg/dL (8.7-10.3); Carbon Dioxide 24.3 mmol/L (21.6-31.8); Chol/HDL Ratio 5.55; Globulin 1.9 g/dL (1.6-3.3); LDL Cholesterol,Calculated 114.8 mg/dL (0.0-131.0); Magnesium 1.8 mg/dL (1.5-2.4); Non-African American GFR(CKD) 76.1 (60.0-200.0); Phosphorus 3.1 mg/dL (2.4-5.1); Potassium 4.1 mmol/L (3.5-5.5); Total Bilirubin 0.8 mg/dL (0.3-1.2); Total Protein 6.9 g/dL (6.2-8.2); VLDL Calculation 26.2 mg/dL (5.00-40.00)
[2020-11-24 06:16] LABS: INR 0.98 (0.90-1.11); Partial Thromboplastin Time 27.1 sec (23.5-31.0); Prothrombin Time 10.7 sec (9.9-11.9)
[2020-11-25 12:44] LABS: Zinc, Serum 70 ug/dL (60-130)
== END | disposition home or self-care (01) ==
LOC: LABWHC1 16:08
PROVIDERS: ATTEND Surgery Plastic and Reconstructive Surgery
DX: N19 Unspecified kidney failure (principal); K74.1 Hepatic sclerosis; K90.89 Other intestinal malabsorption; K50.90 Crohn's disease, unspecified, without complications; D50.8 Other iron deficiency anemias; E55.9 Vitamin D deficiency, unspecified; E66.01 Morbid (severe) obesity due to excess calories
CPT/HCPCS: 36415; 80053; 80061; 82306; 82525; 82607; 82728; 82746; 83036; 83540; 83550; 83735; 83970; 84100; 84134; 84255; 84425; 84443; 84590; 84630; 85027; 85610; 85730

== ENCOUNTER 2020-11-24 08:01 | Day surgery (SDC) | payer OTHER ==
[2020-11-21 16:04] VITALS: BMI 47.6
--- NOTE | 2020-11-24 08:27 | P.GSHP ---
History of Present Illness H&P Date: 11/24/20 CHIEF COMPLAINT: GERD HISTORY OF PRESENT ILLNESS: The patient is a 30-year-old female who presents reports gastroesophageal reflux disease. Upper endoscopy was offered for further evaluation and management. PAST MEDICAL HISTORY: Please see list. PAST SURGICAL HISTORY: Please see list. MEDICATIONS: Please see list. ALLERGIES: Please see list. SOCIAL HISTORY: No illicit drug use FAMILY HISTORY: No reports of Crohn disease or ulcerative colitis. REVIEW OF ORGAN SYSTEMS: CONSTITUTIONAL: No reports of fevers or chills. GI: Denies any blood in stools or constipation. PHYSICAL EXAM: VITAL SIGNS: Stable GENERAL: Well-developed and pleasant in no acute distress. HEENT: No scleral icterus. Extraocular movements grossly intact. Moist buccal mucosa. NECK: Supple without lymphadenopathy. CHEST: Unlabored respirations. Equal bilateral excursions. CARDIOVASCULAR: Regular rate and rhythm. Distal 2+ pulses. ABDOMEN: Soft, nondistended. MUSCULOSKELETAL: No clubbing, cyanosis, or edema. ASSESSMENT: 1. Gastroesophageal reflux disease PLAN: 1. Recommend proceeding with an upper endoscopy Past Medical History Past Medical History: Asthma Additional Past Medical History / Comment(s): hx kidney stone History of Any Multi-Drug Resistant Organisms: None Reported Past Surgical History: Section, Cholecystectomy, Orthopedic Surgery Additional Past Surgical History / Comment(s): d&c, right heel repair of fx. w/plate & screws, sx to remove kidney stone Past Anesthesia/Blood Transfusion Reactions: Previous Problems w/ Anesthesia, Postoperative Nausea & Vomiting (PONV) Additional Past Anesthesia/Blood Transfusion Reaction / Comment(s): trouble waking up Smoking Status: Former smoker - Past Family History Mother Family Medical History: Thyroid Disorder Father Family Medical History: Diabetes Mellitus Additional Family Medical History / Comment(s): Heart Disease, Crohns Medications and Allergies Home Medications Medication Instructions Recorded Confirmed Type Albuterol Inhaler (Mhu) [Ventolin 1 - 2 puff INHALATION RT-Q6H PRN 09/30/19 11/21/20 History Hfa Inhaler] Etonogestrel [Nexplanon] 68 mg SQ DIRECTED 09/30/19 11/21/20 History Phentermine HCl [Adipex P] 15 mg PO AC-BRKFST 09/22/20 11/21/20 History Cetirizine HCl [Zyrtec] 10 mg PO DAILY 11/21/20 11/21/20 History Allergies Allergy/AdvReac Type Severity Reaction Status Date / Time amoxicillin [From Augmentin] Allergy Anaphylaxis Verified 11/24/20 08:25 cefaclor [From Ceclor] Allergy ASTHMA Verified 11/24/20 08:25 ATTACK cephalexin monohydrate Allergy Rash/Hives Verified 11/24/20 08:25 [From Keflex] clavulanic acid Allergy Anaphylaxis Verified 11/24/20 08:25 [From Augmentin]
[2020-11-24 08:40] VITALS: RESP 16; TEMP 97.8
[2020-11-24] MEDS ORDERED: LACTATED RINGERS 1,000 ML IV ONE (08:40)
[2020-11-24] MEDS ORDERED: LIDOCAINE 1% (10MG/ML) FOR IV START INTRADERMA ONE (08:41)
[2020-11-24] MEDS ORDERED: LIDOCAINE 1% INJ 10MG/ML (20 ML MDV) ONE (09:24)
[2020-11-24] MEDS ORDERED: PROPOFOL 10 MG/ML 20 ML VIAL IV ONE (09:24)
--- NOTE | 2020-11-24 09:37 | P.PCN ---
Date of Procedure: 11/24/20 Description of Procedure: PREOPERATIVE DIAGNOSIS: Gastroesophageal reflux disease. Morbid obesity. POSTOPERATIVE DIAGNOSIS: Morbid obesity. Gastritis. Gastroesophageal reflux disease. OPERATION: Esophagogastroduodenoscopy with biopsies along antrum. SURGEON: Kateryna Schuster MD ANESTHESIA: MAC. INDICATIONS: The patient is a 30-year-old female who presents with a history of reflux disease. Benefits and risks of the procedure were described. Informed consent was obtained. DESCRIPTION: The patient was brought into the endoscopy suite and laid in the left lateral decubitus position. An Olympus gastroscope was passed along the posterior oropharynx down to the distal esophagus where the squamocolumnar junction was encountered at 38 cm from the incisors. The stomach was entered and no bile reflux was found. Additional findings are listed below. Biopsies with cold forceps were obtained of the antrum. The first through third portion of the duodenum was examined and unremarkable. Retroflexion of the scope confirmed Hill grade 2 lower esophageal valve. The squamocolumnar junction demonstrated LA grade B erosive esophagitis. The stomach was desufflated. The patient tolerated the procedure well. FINDINGS: Squamocolumnar junction 38 cm from the incisors. Diaphragmatic hiatus at 38 cm. LA grade B erosive esophagitis. No active duodenitis. Chronic gastritis with recent bleed RECOMMENDATIONS: Upper endoscopy as needed. Start omeprazole 40 mg daily for 2 weeks Plan - Discharge Summary Discharge Rx Participant: No New Discharge Prescriptions: New Omeprazole [PriLOSEC] 40 mg PO DAILY #14 cap Continue Albuterol Inhaler (Mhu) [Ventolin Hfa Inhaler (Mhu)] 1 - 2 puff INHALATION RT-Q6H PRN PRN Reason: Dyspnea Etonogestrel [Nexplanon] 68 mg SQ DIRECTED Phentermine HCl [Adipex P] 15 mg PO AC-BRKFST Cetirizine HCl [Zyrtec] 10 mg PO DAILY Discharge Medication List Albuterol Inhaler (Mhu) [Ventolin Hfa Inhaler (Mhu)] 1 - 2 puff INHALATION RT- Q6H PRN 09/30/19 [History] Etonogestrel [Nexplanon] 68 mg SQ DIRECTED 09/30/19 [History] Phentermine HCl [Adipex P] 15 mg PO AC-BRKFST 09/22/20 [History] Cetirizine HCl [Zyrtec] 10 mg PO DAILY 11/21/20 [History] Omeprazole [PriLOSEC] 40 mg PO DAILY #14 cap 11/24/20 [Rx] Follow up Appointment(s)/Referral(s): [facility] [NON-STAFF] - 12/07/20 Patient Instructions/Handouts: Diet for Stomach Ulcers and Gastritis (ED) Activity/Diet/Wound Care/Special Instructions: New prescription at local pharmacy Discharge Disposition: HOME SELF-CARE
[2020-11-24] MEDS ORDERED: ONDANSETRON 4 MG/2 ML VIAL ONE (09:48)
[2020-11-24] MEDS ORDERED: ONDANSETRON 4 MG/2 ML VIAL IVP ONE (09:50)
[2020-11-24 10:17] VITALS: BP 108/74; PULSE 77
== END 2020-11-24 10:17 | disposition home or self-care (01) ==
LOC: ORWHC2ENDO 08:01
PROVIDERS: ATTEND Surgery Plastic and Reconstructive Surgery
DX: K22.10 Ulcer of esophagus without bleeding (principal); K29.51 Unspecified chronic gastritis with bleeding; K21.9 Gastro-esophageal reflux disease without esophagitis; E66.01 Morbid (severe) obesity due to excess calories; Z68.42 Body mass index [BMI] 45.0-49.9, adult; J45.909 Unspecified asthma, uncomplicated; Z87.442 Personal history of urinary calculi; Z98.891 History of uterine scar from previous surgery; Z90.49 Acquired absence of other specified parts of digestive tract; Z98.890 Other specified postprocedural states; Z87.891 Personal history of nicotine dependence; Z83.49 Family history of other endocrine, nutritional and metabolic diseases; Z83.3 Family history of diabetes mellitus; Z82.49 Family history of ischemic heart disease and other diseases of the circulatory system; Z83.79 Family history of other diseases of the digestive system; Z79.3 Long term (current) use of hormonal contraceptives; Z79.899 Other long term (current) drug therapy; Z88.1 Allergy status to other antibiotic agents; Z88.0 Allergy status to penicillin
CPT/HCPCS: 81025; 88305; 43239; J2405; J2001; J2704

== ENCOUNTER → 2020-12-14 | Outpatient (CLI) | payer OTHER ==
[2020-12-14 15:53] VITALS: BP 131/89; PULSE 87; RESP 18; TEMP 98.1; BMI 47.2
--- NOTE | 2020-12-14 15:58 | P.PN ---
Subjective Progress Note Date: 12/14/20 DATE OF SERVICE: 12/14/2020 CHIEF COMPLAINT: Morbid obesity HISTORY OF PRESENT ILLNESS: Torri Pratt is a 30-year-old female who comes with lifelong morbid obesity. As a result of her morbid obesity, she has developed, osteoarthritis of the back, knees, and heel of the right foot. She reports sleep apnea but not treated. She has completed upper endoscopy and is involved in medical supervised weight loss. At height of 5 feet 7.25 inches, her ideal body weight is 158 pounds. She comes in 305 pounds. Her body mass index is 47.6. She is 145 pounds overweight. PAST MEDICAL HISTORY: 1. Morbid obesity due to excess calories 2. Body mass index of 47.6, initial 3. Optic neuritis 4. Asthma 5. Gastroesophageal reflux disease 6. Osteoarthritis of the back 7. Osteoarthritis of the knee 8. Obstructive sleep apnea PAST SURGICAL HISTORY: 1. section 2. Cholecystectomy 3. Dilation and curettage 4. Right heel surgery HOME MEDICATIONS: Home Medications Medication Instructions Recorded Confirmed Albuterol Inhaler (Mhu) [Ventolin 1 - 2 puff INHALATION RT-Q6H PRN 09/30/19 12/26/20 Hfa Inhaler (Mhu)] Etonogestrel [Nexplanon] 68 mg SQ DIRECTED 09/30/19 12/26/20 Phentermine HCl [Adipex P] 15 mg PO AC-BRKFST 09/22/20 12/26/20 Cetirizine HCl [Zyrtec] 10 mg PO DAILY 11/21/20 12/26/20 Previous Rx's Medication Instructions Recorded Omeprazole [PriLOSEC] 40 mg PO DAILY #14 cap 11/24/20 Calcium Carbonate [Calcium] 1,200 mg PO DAILY #60 tablet 12/14/20 Ergocalciferol [Vitamin D2 (1250 1,250 mcg PO WEEKLY #20 cap 12/14/20 Mcg = 58613 Iu)] ALLERGIES: Allergies Allergy/AdvReac Type Severity Reaction Status Date / Time amoxicillin [From Augmentin] Allergy Anaphylaxis Verified 12/26/20 10:05 cefaclor [From Ceclor] Allergy ASTHMA Verified 12/26/20 10:05 ATTACK cephalexin monohydrate Allergy Rash/Hives Verified 12/26/20 10:05 [From Keflex] clavulanic acid Allergy Anaphylaxis Verified 12/26/20 10:05 [From Augmentin] SOCIAL HISTORY: Past tobacco use. FAMILY HISTORY: No family history of ulcerative colitis disease or Crohn's disease. Family history of morbid obesity. No lupus in the family. No reports of stomach or esophageal cancer. REVIEW OF ORGAN SYSTEMS: CONSTITUTIONAL: At height of 5 feet 7.25 inches, her ideal body weight is 158 pounds. She comes in 305 pounds. Her body mass index is 47.6. She is 145 pounds overweight. HEENT: Denies any active troubles with hearing. Had optic neuritis. ENDOCRINE: No diabetes. No hypothyroidism. CARDIOVASCULAR: No past reports of palpitations or heart attacks or chest pain. RESPIRATORY: Has daytime somnolence. Has asthma. GASTROINTESTINAL: Denies any bright red blood per rectum. No diarrhea. No constipation. Has gastroesophageal reflux disease. GENITOURINARY: No bladder urgency. No recent blood in urine MUSCULOSKELETAL: Has lower back pain and joint pain. Has osteoarthritis of the knees. NEURO: No headaches. No seizure disorders. PSYCH: No depression. No suicidal ideation. RHEUMATOLOGIC: No lupus. No rheumatoid arthritis. HEMATOLOGIC: Denies any abnormal bleeding or bruising. SKIN: No rash. No skin cancer. PHYSICAL EXAM: VITAL SIGNS: Height 5 foot 7.25 inches, weight 303 pounds. BMI 47.3 Vital Signs Temp 98.1 F 12/14/20 15:49 Pulse 87 12/14/20 15:49 Resp 18 12/14/20 15:49 BP 131/89 12/14/20 15:49 Pulse Ox GENERAL: Well-developed in no acute distress. HEENT: No scleral icterus. Extraocular movements grossly intact. Hears conversational speech. No nasal drainage. NECK: Supple without lymphadenopathy. CHEST: Nonlabored respirations with equal bilateral excursions. CARDIOVASCULAR: Regular rate and regular rhythm. Distal 2+ pulses. ABDOMEN: Obese, soft, nontender, nondistended. MUSCULOSKELETAL: No clubbing, cyanosis. NEURO: No focal or lateralizing signs. Cranial nerves 2 through 12 grossly within normal limits. PSYCH: Appropriate affect. Alert and oriented to person, place and time. SKIN: Good skin turgor. Well perfused. LABS: WBC elevated, Hemoglobin is elevated, Vitamin D is low, PTH is elevated EGD FINDINGS: Squamocolumnar junction 38 cm from the incisors. Diaphragmatic hiatus at 38 cm. LA grade B erosive esophagitis. No active duodenitis. Chronic gastritis with recent bleed Final Pathologic Diagnosis STOMACH, BIOPSY: Oxyntic type gastric mucosa with focal mild gastritis. EKG 2020: Normal sinus rhythm. ASSESSMENT: 1. Morbid obesity due to excess calories 2. Body mass index of 47.6, initial 3. Optic neuritis 4. Asthma 5. Gastroesophageal reflux disease 6. Osteoarthritis of the back 7. Osteoarthritis of the knee 8. Obstructive sleep apnea 9. Leukocytosis 10. 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 Polycythemia 13. Chronic gastritis PLAN: 1. Recommend Vitamin D supplement 50,000 units weekly. 2. She is looking into the sleeve gastrectomy and at this time, no contra- indication 3. Her WBC is elevated. Recommend re-check. 4. Recommend finish medical supervised weight loss management. 5. Recommend repeat EKG Objective - Vital Signs Vital signs: Vital Signs Temp 98.1 F 12/14/20 15:49 Pulse 87 12/14/20 15:49 Resp 18 12/14/20 15:49 BP 131/89 12/14/20 15:49 Pulse Ox Intake & Output 12/13/20 12/14/20 12/14/20 18:59 06:59 18:59 Weight 137.892 kg
== END | disposition home or self-care (01) ==
LOC: BARWHC3 13:58
PROVIDERS: ATTEND Surgery Plastic and Reconstructive Surgery
DX: E66.01 Morbid (severe) obesity due to excess calories (principal); G47.33 Obstructive sleep apnea (adult) (pediatric); J45.909 Unspecified asthma, uncomplicated; K21.9 Gastro-esophageal reflux disease without esophagitis; K29.50 Unspecified chronic gastritis without bleeding; D72.829 Elevated white blood cell count, unspecified; E55.9 Vitamin D deficiency, unspecified; H46.9 Unspecified optic neuritis; D75.1 Secondary polycythemia; M47.9 Spondylosis, unspecified; M17.10 Unilateral primary osteoarthritis, unspecified knee; E21.1 Secondary hyperparathyroidism, not elsewhere classified; Z88.0 Allergy status to penicillin; Z88.1 Allergy status to other antibiotic agents; Z87.891 Personal history of nicotine dependence; Z79.51 Long term (current) use of inhaled steroids; Z68.42 Body mass index [BMI] 45.0-49.9, adult
CPT/HCPCS: 99211

== ENCOUNTER → 2020-12-26 | Outpatient (CLI) | payer OTHER ==
[2020-12-26 11:23] VITALS: BMI 47.5
== END ==
LOC: BARWHC3 08:11
PROVIDERS: ATTEND Surgery Plastic and Reconstructive Surgery
DX: E66.01 Morbid (severe) obesity due to excess calories (principal); Z71.3 Dietary counseling and surveillance; Z68.42 Body mass index [BMI] 45.0-49.9, adult; Z87.891 Personal history of nicotine dependence
CPT/HCPCS: 97804

== ENCOUNTER → 2021-01-10 | Outpatient (CLI) | payer OTHER ==
[2021-01-10 19:30] LABS: Basophils # (A) 0.05 X 10*3/uL (0.00-0.10); Basophils % (A) 0.6 %; Eosinophils # (A) 0.37 X 10*3/uL (0.04-0.35); Eosinophils % (A) 4.8 %; HCT 46.8 % (37.2-46.3); HGB 15.2 g/dL (12.0-15.0); Lymphocytes # (A) 2.18 X 10*3/uL (0.90-5.00); Lymphocytes % (A) 28.1 %; MCH 28.6 pg (27.0-32.0); MCHC 32.5 g/dL (32.0-37.0); Mean Platelet Volume 12.1 fL (9.5-12.2); Monocytes # (A) 0.47 X 10*3/uL (0.20-1.00); Monocytes % (A) 6.1 %; Neutrophils # (A) 4.65 X 10*3/uL (1.80-7.70); Platelet Count 210 X 10*3/uL (140-440); RBC 5.32 X 10*6/uL (4.10-5.20); RDW 12.9 % (11.5-14.5); WBC 7.75 X 10*3/uL (4.50-10.00)
[2021-01-10 23:08] LABS: Total Protein,CSF 36 mg/dL (12-60)
[2021-01-10 23:38] LABS: Hemoglobin A1C 5.2 % (4.0-6.0)
[2021-01-11 00:07] LABS: African American GFR (CKD) 115.5 (60.0-200.0); Albumin 4.4 g/dL (3.80-4.90); Albumin/Globulin Ratio 2.44 (1.60-3.17); Anion Gap 7.8 mmol/L (4.00-12.00); BUN/Creat Ratio 16.25 Ratio (12.00-20.00); Calcium 9.1 mg/dL (8.7-10.3); Carbon Dioxide 25.2 mmol/L (21.6-31.8); Globulin 1.8 g/dL (1.6-3.3); Non-African American GFR(CKD) 99.6 (60.0-200.0); Potassium 4.8 mmol/L (3.5-5.5); Total Bilirubin 0.5 mg/dL (0.3-1.2); Total Protein 6.2 g/dL (6.2-8.2)
[2021-01-11 00:15] LABS: T4, Free (Free Thyroxine) 1.1 ng/dL (0.80-1.80)
[2021-01-11 00:25] LABS: Hepatitis B Core IgM Non-Reactive (Non-Reactive); Hepatitis B Surface Antigen Non-Reactive (Non-Reactive)
[2021-01-11 00:34] LABS: Appearance,CSF Clear; CSF Tube Number 4; Nucleated Cells, CSF 0 u/L (0-5); Red Blood Cell,CSF 1 u/L (0-10)
[2021-01-12 07:34] LABS: Vit B1(Thiamine) 77 ug/L (38-122)
[2021-01-12 14:05] LABS: HTLV-1 and 2 (EIA) Negative (Negative)
== END | disposition home or self-care (01) ==
LOC: LABWHC1 11:53
PROVIDERS: ATTEND Psychiatry & Neurology Neurology
DX: R42 Dizziness and giddiness (principal); R20.8 Other disturbances of skin sensation; H53.8 Other visual disturbances
CPT/HCPCS: 36415; 80053; 82040; 82042; 82306; 82607; 82784; 83036; 83873; 83916; 84157; 84207; 84425; 84439; 84443; 84481; 85025; 86704; 86705; 86790; 87340; 87801; 89050

== ENCOUNTER → 2021-04-19 | Outpatient (CLI) | payer OTHER ==
[2021-04-19 15:45] VITALS: BP 120/87; PULSE 88; RESP 18; TEMP 98.5; BMI 50.0
--- NOTE | 2021-04-19 16:19 | P.BASOAP ---
Subjective Progress Note Date: 04/19/21 She is off Adipex Needs transfer of diary Weight not steady Barely 6 months completed. She is looking into the NSQIP. She is looking into the gastric bypass. Objective - Vital Signs Vital signs: Vital Signs Temp 98.5 F 04/19/21 15:38 Pulse 88 04/19/21 15:38 Resp 18 04/19/21 15:38 BP 120/87 04/19/21 15:38 Pulse Ox Intake & Output 04/18/21 04/19/21 04/19/21 18:59 06:59 18:59 Weight 146.057 kg Assessment/Plan Plan: Date: 04/19/21 Initial Weight: Initial BMI: Current Weight: 146.057 kg Current BMI: 50.0 Type of Surgery: Total Volume in Band: Previous Volume: Volume Removed: Volume Added: Band Size:
== END | disposition home or self-care (01) ==
LOC: BARWHC3 15:17
PROVIDERS: ATTEND Surgery Plastic and Reconstructive Surgery
DX: E66.01 Morbid (severe) obesity due to excess calories (principal); Z68.43 Body mass index [BMI] 50.0-59.9, adult
CPT/HCPCS: 99211

== ENCOUNTER 2022-06-26 11:03 | Emergency (ER) | payer OTHER ==
[2022-06-26 11:21] VITALS: TEMP 98.2
[2022-06-26] MEDS ORDERED: KETOROLAC 15 MG/ML 1 ML VIAL IM STA (12:15)
--- NOTE | 2022-06-26 12:46 | XR ---
EXAMINATION TYPE: XR chest 2V DATE OF EXAM: 06/26/2022 COMPARISON: 11/02/2019 INDICATION: Congestion TECHNIQUE: Frontal and lateral views of the chest are obtained. FINDINGS: The heart size is normal. The pulmonary vasculature is normal. The lungs are clear. IMPRESSION: 1. No acute pulmonary process.
[2022-06-26] MEDS ORDERED: dexAMETHasone 2 MG TAB PO STA (13:51)
--- NOTE | 2022-06-26 13:53 | ED ---
General Adult HPI - General Chief complaint: ENT Stated complaint: Sore Throat, Chills Time Seen by Provider: 06/26/22 12:05 Source: patient, RN notes reviewed, old records reviewed Mode of arrival: ambulatory - History of Present Illness Initial comments: Patient is a 32-year-old female who presents emergency Department complaining of a breast her symptoms. This includes nasal congestion, sore throat, as well as a nonproductive thready cough. He was not vaccinated for Covid. No known sick contacts. Did have 1 episode of emesis on Saturday. Has been having symptoms since Saturday or Saturday. Denies any sick contacts other than her kids. Is tolerating oral intake. Denies diarrhea or current nausea. His no other acute complaints at this time. Presents for further evaluation at this time. - Related Data Home Medications Medication Instructions Recorded Confirmed Albuterol Inhaler [Ventolin Hfa 1 - 2 puff INHALATION RT-Q6H PRN 09/30/19 04/19/21 Inhaler] Etonogestrel [Nexplanon] 68 mg SQ DIRECTED 09/30/19 04/19/21 Phentermine HCl [Adipex P] 15 mg PO AC-BRKFST 09/22/20 04/19/21 Cetirizine HCl [Zyrtec] 10 mg PO DAILY 11/21/20 04/19/21 Previous Rx's Medication Instructions Recorded Omeprazole [PriLOSEC] 40 mg PO DAILY #14 cap 11/24/20 Calcium Carbonate [Calcium] 1,200 mg PO DAILY #60 tablet 12/14/20 Ergocalciferol [Vitamin D2 (1250 1,250 mcg PO WEEKLY #20 cap 12/14/20 Mcg = 04928 Iu)] Allergies Allergy/AdvReac Type Severity Reaction Status Date / Time amoxicillin [From Augmentin] Allergy Anaphylaxis Verified 06/26/22 11:21 cefaclor [From Ceclor] Allergy ASTHMA Verified 06/26/22 11:21 ATTACK cephalexin monohydrate Allergy Rash/Hives Verified 06/26/22 11:21 [From Keflex] clavulanic acid Allergy Anaphylaxis Verified 06/26/22 11:21 [From Augmentin] Review of Systems ROS Statement: Those systems with pertinent positive or pertinent negative responses have been documented in the HPI. Review of Systems: CONST: Denies fever EYES: Denies blurry vision ENT: Endorses nasal congestion C/V: Denies Chest pain RESP: Denies shortness of breath GI: Denies abdominal pain : Denies dysuria SKIN: Denies rash. MSK: Denies joint pain. NEURO: Denies headache ROS Other: All systems not noted in ROS Statement are negative. Past Medical History Past Medical History: Asthma Additional Past Medical History / Comment(s): hx kidney stone History of Any Multi-Drug Resistant Organisms: None Reported Past Surgical History: Section, Cholecystectomy, Orthopedic Surgery Additional Past Surgical History / Comment(s): d&c, right heel repair of fx. w/plate & screws, sx to remove kidney stone Past Anesthesia/Blood Transfusion Reactions: Previous Problems w/ Anesthesia, Postoperative Nausea & Vomiting (PONV) Additional Past Anesthesia/Blood Transfusion Reaction / Comment(s): trouble waking up Past Psychological History: No Psychological Hx Reported Smoking Status: Former smoker Past Alcohol Use History: Rare Past Drug Use History: None Reported - Past Family History Mother Family Medical History: Thyroid Disorder Father Family Medical History: Diabetes Mellitus Additional Family Medical History / Comment(s): Heart Disease, Crohns General Exam - General Exam Comments Initial Comments: General: Appears in no acute distress. HEAD: Normal with no signs of head trauma. EYES: PERRLA, EOMI, conjunctiva normal, no discharge. ENT: Hearing grossly intact, normal oropharynx. RESPIRATORY: Clear breath sounds bilaterally. No wheezes, rales, or rhonchi. No hypoxia. No respiratory distress C/V: Regular rate and rhythm. S1 and S2 auscultated, no edema, peripheral pulses 2+ and intact throughout ABD: Abd is soft, nontender, nondistended EXT: Normal range of motion, no obvious deformity SKIN: No rashes or lesions observed on exposed skin. NEURO: Alert and oriented 4. Course Vital Signs 06/26/22 06/26/22 11:18 14:08 Temperature 98.2 F Pulse Rate 87 86 Respiratory 14 15 Rate Blood Pressure 133/93 129/99 O2 Sat by Pulse 99 98 Oximetry Medical Decision Making - Medical Decision Making Based on the patient's presentation and physical exam, I'm concerned for upper respiratory illness for the patient. Did recommend we can obtain viral swabs as well as chest x-ray. Patient was in agreement this plan. Vital signs are within acceptable limits. She will be given Toradol IM for her generalized discomfort. She was in agreement this plan. Laboratory studies were negative for Covid, flu, strep throat. Chest x-ray showed no acute cardio primary process. On reevaluation, patient is feeling improved. We discussed she likely has a viral URI and discussed her results. She'll be given a single dose of Decadron and instructions follow-up with her PCP. She was given a work note. Patient was in agreement this plan. I instructed the patient to follow up with their PCP in the next 1-3 days. I explained that the patient should return to the emergency department if they experience any worsening symptoms. Strict return precautions were discussed with the patient. The patient expressed understanding of these instructions. I answered all questions that the patient had. The patient was discharged home in good condition with their prescriptions and follow up information. - Lab Data Lab Results 06/26/22 06/26/22 06/26/22 Range/Units 12:18 12:18 12:18 Coronavirus (PCR) Not Detected (Not Detectd) Influenza Type A RNA Not Detected (Not Detectd) Influenza Type B (PCR) Not Detected (Not Detectd) Group A Strep (PCR) NOT DETECTED (Not Detectd) Disposition Clinical Impression: URI (upper respiratory infection) Disposition: HOME SELF-CARE Condition: Good Instructions (If sedation given, give patient instructions): Upper Respiratory Infection (ED) Is patient prescribed a controlled substance at d/c from ED?: No Referrals: Rashid Herrera MD [Primary Care Provider] - 1-2 days Time of Disposition: 13:40
[2022-06-26 14:09] VITALS: BP 129/99; PULSE 86; RESP 15
== END 2022-06-26 14:09 | disposition home or self-care (01) ==
LOC: EC 11:03
DX: J06.9 Acute upper respiratory infection, unspecified (principal); J45.909 Unspecified asthma, uncomplicated; Z88.1 Allergy status to other antibiotic agents; Z88.6 Allergy status to analgesic agent; Z87.891 Personal history of nicotine dependence; Z20.822 Contact with and (suspected) exposure to COVID-19
CPT/HCPCS: 87651; 87502; 87635; 71046; 99284; 96372; J8540; J1885

== ENCOUNTER → 2022-07-19 | Outpatient (CLI) | payer OTHER ==
--- NOTE | 2022-07-20 05:28 | MR ---
EXAMINATION TYPE: MR ankle LT wo con DATE OF EXAM: 07/19/2022 COMPARISON: HISTORY: Left ankle and foot pain. Multiplanar multi echo imaging of the left ankle performed with no contrast. There is subcutaneous edema around the ankle. There is mild ankle joint effusion. The Achilles tendon appears intact. Plantar fascia is intact. The medial and lateral flexor tendons of the ankle appear intact. The collateral ligaments are intact. No fracture seen. There is mild plantar calcaneal spurri ng. There are small Achilles calcaneal spurring. The talonavicular joint is intact. IMPRESSION: Mild to moderate ankle joint effusion and subtalar effusion consistent with synovitis. No fracture li ne seen. No evidence of ligament or tendon tear. Subcutaneous edema around the ankle.
--- NOTE | 2022-07-20 05:35 | MR ---
EXAMINATION TYPE: MR foot LT wo con DATE OF EXAM: 07/19/2022 COMPARISON: None HISTORY: Left ankle and foot pain. Multiplanar multiecho imaging of the left foot with no contrast. There is subcutaneous edema around the hind foot and the ankle. The Achilles tendon is intact. Planta r fascia is intact. Metatarsals are intact. The toes appear intact. No evidence of a fracture. No focal bone destruction. The medial and lateral flexor tendons of the ankle appear intact. The hindfoot is intact. IMPRESSION: Ankle joint effusion. Subcutaneous edema around the foot and ankle. No fracture seen. No focal bone d estruction.
== END | disposition home or self-care (01) ==
LOC: RADMRIMAIN 15:20
PROVIDERS: ATTEND Emergency Medicine
DX: S93.602D Unspecified sprain of left foot, subsequent encounter (principal); S93.402D Sprain of unspecified ligament of left ankle, subsequent encounter; M25.472 Effusion, left ankle

== ENCOUNTER → 2022-12-31 | Outpatient (CLI) | payer OTHER ==
--- NOTE | 2022-12-31 13:03 | XR ---
EXAMINATION TYPE: XR elbow complete RT DATE OF EXAM: 12/31/2022 COMPARISON: NONE HISTORY: Pain FINDINGS: Three views of the elbow demonstrate no pathologic joint effusion. The osseous structures are intact . There is no acute fracture or dislocation. IMPRESSION: 1. No acute fracture or dislocation. If symptoms persist follow-up study in 7 to 10 days could be ob tained.
--- NOTE | 2022-12-31 13:04 | XR ---
EXAMINATION TYPE: XR knee complete RT DATE OF EXAM: 12/31/2022 COMPARISON: NONE HISTORY: Pain TECHNIQUE: Three views are submitted. FINDINGS: Joint spaces are preserved. Osseous structures are intact. No acute fracture seen. IMPRESSION: 1. No acute fracture or dislocation.
--- NOTE | 2022-12-31 13:05 | XR ---
EXAMINATION TYPE: XR shoulder complete RT DATE OF EXAM: 12/31/2022 COMPARISON: NONE HISTORY: Pain TECHNIQUE: Three views are submitted. FINDINGS: The osseous structures are intact. There is no acute fracture or dislocation. The AC joint is maint ained. IMPRESSION: 1. No acute process.
== END | disposition home or self-care (01) ==
LOC: RADXRMAIN 12:19
PROVIDERS: ATTEND Emergency Medicine
DX: S50.01XA Contusion of right elbow, initial encounter (principal); S80.01XA Contusion of right knee, initial encounter; S43.401A Unspecified sprain of right shoulder joint, initial encounter; X58.XXXA Exposure to other specified factors, initial encounter

== ENCOUNTER → 2023-01-02 | Outpatient (CLI) | payer OTHER ==
--- NOTE | 2023-01-02 16:58 | MR ---
EXAMINATION TYPE: MR shoulder RT wo con DATE OF EXAM: 01/02/2023 COMPARISON: Right shoulder x-ray 2 days ago. HISTORY: Rt shoulder pain, fall on rt shoulder TECHNIQUE: Multiplanar, multisequence imaging of the right shoulder is performed without contrast. FINDINGS: Rotator Cuff: Distal supraspinatus and infraspinatus tendons show some increased signal without tear. Rotator cuff muscle bulk is preserved. Acromioclavicular Joint: Moderate narrowing and mild to moderate capsular hypertrophy. Underlying fat plane is maintained. Glenohumeral Joint: Small to moderate size joint effusion. No significant spurring. Labrum: The labrum appears grossly intact given limitation of non-arthrogram study. Biceps Tendon: The long head of biceps is in normal location within bicipital groove. Bone marrow signal: Tiny subchondral cysts involving the posterior lateral aspect of the superior hum eral head. Tiny subchondral cystic change distal clavicle. Other: No additional significant abnormality is appreciated. IMPRESSION: 1. Tendinosis of the rotator cuff tendons. No rotator cuff or labral tear seen.
== END | disposition home or self-care (01) ==
LOC: RADMRIMAIN 12:51
PROVIDERS: ATTEND Emergency Medicine
DX: S43.401A Unspecified sprain of right shoulder joint, initial encounter (principal); M67.813 Other specified disorders of tendon, right shoulder

== ENCOUNTER 2023-09-26 16:27 | Emergency (ER) | payer OTHER ==
[2023-09-26 16:36] VITALS: PULSE 105
--- NOTE | 2023-09-26 16:52 | ED ---
General Adult HPI - General Chief complaint: Eye Problems Stated complaint: Eye Irritation Time Seen by Provider: 09/26/23 16:45 Source: patient, RN notes reviewed Mode of arrival: ambulatory Limitations: no limitations - History of Present Illness Initial comments: 33-year-old female presents to the emergency department for evaluation of right eye irritation. Patient states that this has been going on for around 1 week. She notes that she has been utilizing erythromycin ointment for this. She also states that she has been dealing with some upper respiratory infection type symptoms including cough and congestion she has seen her PCP for and is being treated for. She denies any changes in her eye symptoms but states that it is not improving. She does admit to some blurry vision in the right eye with the erythromycin ointment. She denies fever, chills. Denies pain with eye movements. - Related Data Home Medications Medication Instructions Recorded Confirmed Albuterol Inhaler [Ventolin Hfa 1 - 2 puff INHALATION RT-Q6H PRN 09/30/19 04/19/21 Inhaler] Etonogestrel [Nexplanon] 68 mg SQ DIRECTED 09/30/19 04/19/21 Phentermine HCl [Adipex P] 15 mg PO [id number] 09/22/20 04/19/21 Cetirizine HCl [Zyrtec] 10 mg PO DAILY 11/21/20 04/19/21 Previous Rx's Medication Instructions Recorded Omeprazole [PriLOSEC] 40 mg PO DAILY #14 cap 11/24/20 Calcium Carbonate [Calcium] 1,200 mg PO DAILY #60 tablet 12/14/20 Ergocalciferol [Vitamin D2 (1250 1,250 mcg PO WEEKLY #20 cap 12/14/20 Mcg = [id number] Iu)] Allergies Allergy/AdvReac Type Severity Reaction Status Date / Time amoxicillin [From Augmentin] Allergy Anaphylaxis Verified 09/26/23 16:32 cefaclor [From Ceclor] Allergy ASTHMA Verified 09/26/23 16:32 ATTACK cephalexin monohydrate Allergy Rash/Hives Verified 09/26/23 16:32 [From Keflex] clavulanic acid Allergy Anaphylaxis Verified 09/26/23 16:32 [From Augmentin] Review of Systems ROS Statement: Those systems with pertinent positive or pertinent negative responses have been documented in the HPI. ROS Other: All systems not noted in ROS Statement are negative. Past Medical History Past Medical History: Asthma Additional Past Medical History / Comment(s): hx kidney stone History of Any Multi-Drug Resistant Organisms: None Reported Past Surgical History: Section, Cholecystectomy, Orthopedic Surgery Additional Past Surgical History / Comment(s): d&c, right heel repair of fx. w/plate & screws, sx to remove kidney stone Past Anesthesia/Blood Transfusion Reactions: Previous Problems w/ Anesthesia, Postoperative Nausea & Vomiting (PONV) Additional Past Anesthesia/Blood Transfusion Reaction / Comment(s): trouble waking up Past Psychological History: No Psychological Hx Reported Smoking Status: Former smoker Past Alcohol Use History: Rare Past Drug Use History: None Reported - Past Family History Mother Family Medical History: Thyroid Disorder Father Family Medical History: Diabetes Mellitus Additional Family Medical History / Comment(s): Heart Disease, Crohns General Exam Limitations: no limitations General appearance: alert, in no apparent distress Head exam: Present: atraumatic, normocephalic, normal inspection Eye exam: Present: PERRL, EOMI, conjunctival injection, other (Blepharitis to the upper right eyelid) ENT exam: Present: normal exam, mucous membranes moist Neck exam: Present: normal inspection. Absent: tenderness, meningismus, lymphadenopathy Respiratory exam: Present: normal lung sounds bilaterally. Absent: respiratory distress, wheezes, rales, rhonchi, stridor Cardiovascular Exam: Present: regular rate, normal rhythm, normal heart sounds. Absent: systolic murmur, diastolic murmur, rubs, gallop, clicks Extremities exam: Present: normal inspection, full ROM, normal capillary refill. Absent: tenderness, pedal edema, joint swelling, calf tenderness Back exam: Present: normal inspection Neurological exam: Present: alert, oriented X3 Psychiatric exam: Present: normal affect, normal mood Skin exam: Present: warm, dry, intact, normal color. Absent: rash Course Vital Signs 09/26/23 09/26/23 16:28 18:32 Temperature 98.0 F 99.9 F H Pulse Rate 105 H 105 H Respiratory 20 18 Rate Blood Pressure 127/86 145/73 O2 Sat by Pulse 95 96 Oximetry Medical Decision Making - Medical Decision Making Was pt. sent in by a medical professional or institution (, PA, RADIO MAINTAINER, urgent care, hospital, or jail...) When possible be specific @ -No Did you speak to anyone other than the patient for history (EMS, parent, family, police, friend...)? What history was obtained from this source @ -No Did you review nursing and triage notes (agree or disagree)? Why? @ -I reviewed and agree with nursing and triage notes Were old charts reviewed (outside hosp., previous admission, EMS record, old EKG, old radiological studies, urgent care reports/EKG's, jail records)? Report findings @ -No old charts were reviewed Differential Diagnosis (chest pain, altered mental status, abdominal pain women, abdominal pain men, vaginal bleeding, weakness, fever, dyspnea, syncope, headache, dizziness, GI bleed, back pain, seizure, CVA, palpatations, mental health, musculoskeletal)? @ -Viral conjunctivitis, bacterial conjunctivitis, iritis, angle-closure glaucoma, periorbital cellulitis, this list is not all inclusive EKG interpreted by me (3pts min.). @ -None X-rays interpreted by me (1pt min.). @ -None done CT interpreted by me (1pt min.). @ -None done U/S interpreted by me (1pt. min.). @ -None done What testing was considered but not performed or refused? (CT, X-rays, U/S, labs)? Why? @ -None What meds were considered but not given or refused? Why? @ -None Did you discuss the management of the patient with other professionals (professionals i.e. , PA, RADIO MAINTAINER, lab, RT, psych nurse, social worker psychiatric, exercise specialist, teacher, operations officer trust department, director case management)? Give summary @ -No Was smoking cessation discussed for >3mins.? @ -No Was critical care preformed (if so, how long)? @ -No Were there social determinants of health that impacted care today? How? (Homelessness, low income, unemployed, alcoholism, drug addiction, transportation, low edu. Level, literacy, decrease access to med. care, senior care, rehab)? @ -No Was there de-escalation of care discussed even if they declined (Discuss DNR or withdrawal of care, Hospice)? DNR status @ -No What co-morbidities impacted this encounter? (DM, HTN, Smoking, COPD, CAD, Cancer, CVA, ARF, Chemo, Hep., AIDS, mental health diagnosis, sleep apnea, morbid obesity)? @ -None Was patient admitted / discharged? Hospital course, mention meds given and route, prescriptions, significant lab abnormalities, going to OR and other pertinent info. @ -Discharge. Patient presented to the emergency department for evaluation of right eye irritation. She has been using erythromycin ointment which has not improved her symptoms. On examination, patient has conjunctival injection with erythema to the upper right lid at the lash margin. No proptosis, no pain with eye movements. Ocular pressure 10 in the right eye and 12 in the left eye. Patient is a contact lens wearer. She does report that she has not been using her contacts since this started. Will switch her to a different eyedrop for Pseudomonas coverage. Advised to follow-up with ophthalmology if no im provement. Patient understanding agreeable with plan. Patient stable at time of discharge. Case discussed with Dr. Ross Undiagnosed new problem with uncertain prognosis? @ -No Drug Therapy requiring intensive monitoring for toxicity (Heparin, Nitro, Insulin, Cardizem)? @ -No Were any procedures done? @ -No Diagnosis/symptom? @ -Conjunctivitis Acute, or Chronic, or Acute on Chronic? @ -Acute Uncomplicated (without systemic symptoms) or Complicated (systemic symptoms)? @ -Uncomplicated Side effects of treatment? @ -No Exacerbation, Progression, or Severe Exacerbation? @ -No Poses a threat to life or bodily function? How? (Chest pain, [place], [place], pneumonia, PE, COPD, DKA, ARF, appy, cholecystitis, CVA, Diverticulitis, Homicidal, Suicidal, threat to staff... and all critical care pts) @ -No Disposition Clinical Impression: Bacterial conjunctivitis Disposition: HOME SELF-CARE Condition: Stable Instructions (If sedation given, give patient instructions): Blepharitis (ED), Conjunctivitis (ED) Additional Instructions: Please utilize warm compresses and baby soap for cleaning. Instill 2 eye drops every 6 hours for 5 days into affected eye. Follow up with ophthalmology if no improvement. Return to the emergency department for new or worsening symptoms. Is patient prescribed a controlled substance at d/c from ED?: No Referrals: Rashid Herrera MD [Primary Care Provider] - 1-2 days Mireille Murry MD [STAFF PHYSICIAN] - 1-2 days Joann Kendrick MD [STAFF PHYSICIAN] - 1-2 days Don Alvarado MD [STAFF PHYSICIAN] - 1-2 days
[2023-09-26] MEDS: FLUORESCEIN STRIPS 1 MG STRIP BOTH EYES ONE (17:18)
[2023-09-26] MEDS: PROPARACAINE 0.5% OPHTH DROPS 15 ML BTL LEFT EYE STA (17:18)
[2023-09-26] MEDS: TOBRAMYCIN 0.3% OPHTH DROPS 5 ML BTL RIGHT EYE STA (18:29)
[2023-09-26 18:54] VITALS: BP 145/73; RESP 18; TEMP 99.9
== END 2023-09-26 18:33 | disposition home or self-care (01) ==
LOC: EC 16:27
DX: H10.89 Other conjunctivitis (principal); H01.001 Unspecified blepharitis right upper eyelid; J45.909 Unspecified asthma, uncomplicated; Z79.899 Other long term (current) drug therapy; Z88.0 Allergy status to penicillin; Z88.1 Allergy status to other antibiotic agents; Z87.891 Personal history of nicotine dependence
CPT/HCPCS: 99283

== ENCOUNTER → 2024-01-24 | Outpatient (CLI) | payer OTHER ==
[2024-01-25 04:01] LABS: Basophils # (A) 0.07 X 10*3/uL (0.00-0.10); Basophils % (A) 0.8 %; Eosinophils # (A) 0.39 X 10*3/uL (0.04-0.35); Eosinophils % (A) 4.3 %; HCT 46.8 % (37.2-46.3); HGB 15.1 g/dL (12.0-15.0); Lymphocytes # (A) 2.81 X 10*3/uL (0.90-5.00); MCH 28.7 pg (27.0-32.0); MCHC 32.3 g/dL (32.0-37.0); MCV 88.8 FL (80.0-97.0); Mean Platelet Volume 11.9 FL (9.5-12.2); Monocytes # (A) 0.68 X 10*3/uL (0.20-1.00); Monocytes % (A) 7.5 %; NRBC Per 100 WBC 0 X 10*3/uL (0.00-0.01); Neutrophils # (A) 5.09 X 10*3/uL (1.80-7.70); Neutrophils % (A) 56.1 %; Platelet Count 219 X 10*3/uL (140-440); RBC 5.27 X 10*6/uL (4.10-5.20); RDW 13.2 % (11.5-14.5); WBC 9.07 X 10*3/uL (4.50-10.00)
[2024-01-25 04:40] LABS: BUN/Creat Ratio 21.57 Ratio (12.00-20.00); Blood Urea Nitrogen 15.1 mg/dL (9.0-27.0); Calcium 9.3 mg/dL (8.7-10.3); Carbon Dioxide 23.4 mmol/L (21.6-31.8); Chloride 110 mmol/L (96-109); Glucose 87 mg/dL (70-110); Potassium 4.3 mmol/L (3.5-5.5); Sodium 146 mmol/L (135-145)
[2024-01-25 05:11] LABS: Appearance,Urine Cloudy (Clear); Bilirubin,Urine Negative (Negative); Blood,Urine Negative (Negative); Color,Urine Yellow (Yellow); Ketones,Urine Negative (Negative); Nitrite,Urine Negative (Negative); PH, Urine 5.5; Specific Gravity,Urine 1.024 (1.001-1.030); Urobilinogen,Urine 0.2 E.U./DL
[2024-01-25 05:19] LABS: Bacteria,Urine 2+ (None Seen)
== END | disposition home or self-care (01) ==
LOC: LABPAT 15:29
PROVIDERS: ATTEND Urology
DX: Z01.812 Encounter for preprocedural laboratory examination (principal); N20.0 Calculus of kidney
CPT/HCPCS: 80048; 81001; 85025; 87086

== ENCOUNTER 2024-01-28 08:34 | Day surgery (SDC) | payer OTHER ==
[2024-01-24 08:51] VITALS: BMI 42.5
[~2024-01-28 08:34] MED LIST changes: -CIPROFLOXACIN/DEXTROSE PMX 400 MG in DEXTROSE/WATER 1 200ML.BAG IVPB ONE; -DEXAMETHASONE SOD PHOSPHATE 10 MG/ML 1 ML VIAL IV ONE; -GENTAMICIN 130 MG in SODIUM CHLORIDE 0.9% 100 ML IVPB ONE; -ONDANSETRON 4 MG/2 ML VIAL IVP ONE; +SCOPOLAMINE 1 MG/72 HR PATCH TRANSDERM ONE; -SCOPOLAMINE 1.5MG/72HR PATCH TRANSDERM ONE
--- NOTE | 2024-01-28 09:01 | XR ---
EXAMINATION TYPE: XR KUB DATE OF EXAM: 01/28/2024 COMPARISON: 10/06/2019 HISTORY: Presurgical TECHNIQUE: One view abdominal series FINDINGS: The osseous structures are intact. The bowel gas pattern is nonspecific. There is a 3 mm lower pole left renal calculus. No suspicious calcifications overlying the right kidn ey. Faint calcification left pelvis likely outside the system. Postcholecystectomy changes noted. IMPRESSION: 1. 3 mm lower pole left renal calculus.
[2024-01-28] MEDS: IV FLUID CONTINUATION 1,000 ML IV ONE (09:40)
[2024-01-28] MEDS: LACTATED RINGERS 1,000 ML IV SCH (09:40)
[2024-01-28] MEDS: LIDOCAINE 1% (10MG/ML) FOR IV START INTRADERMA ONE (09:40)
--- NOTE | 2024-01-28 09:50 | P.HPIHPCON ---
History of Present Illness H&P Date: 01/28/24 Chief Complaint: Left-sided renal stone This is a 33-year-old female with history of a 6 mm left-sided lower pole stone, she is having left-sided flank pain. Discussed the stones are nonobstructive but they could be contributing to her symptoms. Option of observation, versus ESWL versus ureteroscopy with holmium laser was discussed with detail, she agreed to proceed with left-sided ureteroscopy with holmium laser, aware the risk which includes but not limited to bleeding, infection, injury to the ureter. Risk of anesthesia was also discussed. Potential persistent pain was also discussed. She understood all the risk and agreed to proceed Consent for Procedure: I have explained the operation/procedure to the patient, including the risks, benefits, side effects, alternative therapies (including not receiving the proposed treatment or service), the likelihood of the patient achieving his/her goals, and potential recuperation problems for the procedure/sedation/analgesia, as well as any blood products, if indicated. I also explained to the patient the risks, benefits and side effects of the alternatives, as well as the risks related to not receiving the proposed procedure, care, treatment, or services. Past Medical History Past Medical History: Asthma, GERD/Reflux Additional Past Medical History / Comment(s): hx kidney stone, PCOS History of Any Multi-Drug Resistant Organisms: None Reported Past Surgical History: Section, Cholecystectomy, Orthopedic Surgery Additional Past Surgical History / Comment(s): d&c, right heel repair of fx. w/plate & screws, sx to remove kidney stone, LT ANKLE TENDON SX, Past Anesthesia/Blood Transfusion Reactions: Previous Problems w/ Anesthesia, Postoperative Nausea & Vomiting (PONV) Additional Past Anesthesia/Blood Transfusion Reaction / Comment(s): trouble waking up Smoking Status: Former smoker - Past Family History Mother Family Medical History: Thyroid Disorder Father Family Medical History: Diabetes Mellitus Additional Family Medical History / Comment(s): Heart Disease, Crohns Medications and Allergies Home Medications Medication Instructions Recorded Confirmed Type Albuterol Inhaler [Ventolin Hfa 1 - 2 puff INHALATION RT-Q6H PRN 09/30/19 01/24/24 History Inhaler] Cetirizine HCl [Zyrtec] 10 mg PO DAILY 11/21/20 01/24/24 History Omeprazole [PriLOSEC] 40 mg PO DAILY #14 cap 11/24/20 01/24/24 Rx Cariprazine HCl [Vraylar] 1.5 mg PO HS 01/24/24 01/24/24 History Escitalopram [Lexapro] 10 mg PO DAILY 01/24/24 01/24/24 History Tirzepatide [Mounjaro] 2.5 mg SQ HS 01/24/24 01/24/24 History Allergies Allergy/AdvReac Type Severity Reaction Status Date / Time amoxicillin [From Augmentin] Allergy Anaphylaxis Verified 01/28/24 09:16 cefaclor [From Ceclor] Allergy ASTHMA Verified 01/28/24 09:16 ATTACK cephalexin monohydrate Allergy Rash/Hives Verified 01/28/24 09:16 [From Keflex] clavulanic acid Allergy Anaphylaxis Verified 01/28/24 09:16 [From Augmentin] Surgical - Exam Vital Signs Temp Pulse Resp BP Pulse Ox 97.5 F L 85 16 134/82 97 01/28/24 09:30 01/28/24 09:30 01/28/24 09:30 01/28/24 09:30 01/28/24 09:30 - General no distress, moderate pain - Eyes normal ocular movement, no pale - ENT normal nares, normal mucosa - Respiratory normal expansion, normal respiratory effort - Abdomen Abdomen: soft, non tender - Psychiatric oriented to time, oriented to person, oriented to place Assessment and Plan Assessment: OR for left-sided ureteroscopy, holmium laser lithotripsy, stone basketing and stent insertion
[2024-01-28] MEDS: DEXAMETHASONE SOD PHOSPHATE 4 MG/ML 1 ML VIAL IV ONE (09:51)
[2024-01-28] MEDS: ONDANSETRON 4 MG/2 ML VIAL IVP ONE (09:51)
[2024-01-28] MEDS: METOCLOPRAMIDE 5 MG/ML 2 ML VIAL IVP STA (09:52)
[2024-01-28] MEDS: FAMOTIDINE 20 MG/2 ML VIAL IV STA (09:53)
[2024-01-28] MEDS ORDERED: KETAMINE HCL IN 0.9 % NACL 50 MG/5 ML SYRINGE ONE (09:57)
[2024-01-28] MEDS ORDERED: fentaNYL (PF) 50 MCG/ML 2 ML AMP ONE (09:57)
[2024-01-28] MEDS ORDERED: PROPOFOL 10 MG/ML 20 ML VIAL IV ONE (09:57)
[2024-01-28] MEDS ORDERED: SUCCINYLCHOLINE CHLORIDE 200 MG/10 ML VIAL IV ONE (09:57)
[2024-01-28] MEDS ORDERED: LIDOCAINE 1% INJ 10MG/ML (20 ML MDV) ONE (09:57)
[2024-01-28] MEDS ORDERED: MIDAZOLAM 2 MG/2 ML VIAL ONE (09:57)
[2024-01-28 09:58] LABS: Glucose,Whole Blood 94 mg/dL (70-110)
[2024-01-28] MEDS: CIPROFLOXACIN/DEXTROSE PMX 400 MG in DEXTROSE/WATER 1 200ML.BAG IVPB PRN (10:05)
--- NOTE | 2024-01-28 11:06 | FL ---
EXAMINATION TYPE: FL guidance operating room DATE OF EXAM: 01/28/2024 HISTORY: Fluoroscopy time Total dose area product (DAP) in uGy*m?, mGy*cm? (or similar): 0.10699 IMPRESSION: 1. Fluoroscopy time.
[2024-01-28 11:08] VITALS: TEMP 97
--- NOTE | 2024-01-28 11:11 | P.OP ---
Date of Procedure: 01/28/24 Preoperative Diagnosis: Renal stone Postoperative Diagnosis: Same Procedure(s) Performed: Cystoscopy, left ureteroscopy, holmium laser lithotripsy, stone basketing and stent insertion Implants: 6 [place] by 24 cm stent left on a string and taped to the left thigh Anesthesia: FRANCISCO Surgeon: Angel Dawkins Estimated Blood Loss (ml): 5 Pathology: other (left renal stone) Condition: stable Disposition: PACU Indications for Procedure: This is a 33-year-old female with history of a 6 mm left-sided lower pole stone, she is having left-sided flank pain. Discussed the stones are nonobstructive but they could be contributing to her symptoms. Option of observation, versus ESWL versus ureteroscopy with holmium laser was discussed with detail, she agreed to proceed with left-sided ureteroscopy with holmium laser, aware the risk which includes but not limited to bleeding, infection, injury to the ureter. Risk of anesthesia was also discussed. Potential persistent pain was also discussed. She understood all the risk and agreed to proceed Operative Findings: Left-sided lower pole stone Description of Procedure: Patient brought to the operating room, general anesthesia was induced. She was prepped and draped in sterile fashion placed in dorsolithotomy position. Cystoscopy with a 21 [place] sheath was inserted per urethra, cystoscopy was performed showed no abnormality within the bladder. Attention was then carried to the left ureteral orifice which was intubated with a sensor wire, the wire was advanced under fluoroscopy and into the kidney. Next an 1113 [place] access sheath was passed over the wire into the proximal ureter. Next a flexible ureteroscope was inserted through the access sheath, renoscopy was performed showed a large stone in the lower pole. Using the holmium laser the stone was fragmented, stone fragments were removed using the stone basket. Repeat renoscopy showed no sizable fragments or injury to the kidney, on fluoroscopy there was no radiopaque densities. At this time pullback ureteroscopy was performed showed no injury to the ureter or any ureteral stones, as ureteroscope was withdrawn a sensor wire was advanced through. Next ureteral stent was passe d over the wire, the proximal curl was visualized on fluoroscopy and the distal curl was visualized using the cystoscope. The stent was left on a string and taped to the patient left thigh. The patient was awakened from anesthesia and taken to recovery in stable condition
[2024-01-28 12:47] VITALS: RESP 16
[2024-01-28] MEDS: HYDROmorphone 0.5 MG/0.5 ML SYRINGE IVP PRN (12:54)
[2024-01-28 13:07] VITALS: BP 129/82; PULSE 79
== END 2024-01-28 13:54 | disposition home or self-care (01) ==
LOC: OR 08:34
PROVIDERS: ATTEND Urology
DX: N20.0 Calculus of kidney (principal); J45.909 Unspecified asthma, uncomplicated; K21.9 Gastro-esophageal reflux disease without esophagitis; Z87.891 Personal history of nicotine dependence; Z88.0 Allergy status to penicillin; Z88.1 Allergy status to other antibiotic agents; Z90.49 Acquired absence of other specified parts of digestive tract; Z98.891 History of uterine scar from previous surgery; Z79.899 Other long term (current) drug therapy
CPT/HCPCS: 52356; 81025; 82365; 74018; C2625; C1769; J2250; J0330; J1100; J2765; J2405; J2001; J3010; J0744; J3490; J2704; J1170

== ENCOUNTER 2024-04-12 12:31 | Emergency (ER) | payer OTHER ==
[2024-04-12 12:38] VITALS: TEMP 98.3
[2024-04-12] MEDS: SODIUM CHLORIDE 0.9% 1,000 ML IV STA (13:00)
[2024-04-12] MEDS: ONDANSETRON 4 MG/2 ML VIAL IVP STA (13:01)
--- NOTE | 2024-04-12 13:03 | ED ---
Nausea/Vomiting/Diarrhea HPI - General Chief complaint: Nausea/Vomiting/Diarrhea Stated complaint: Nause-7 weeks preg Time Seen by Provider: 04/12/24 13:02 Source: patient, RN notes reviewed Mode of arrival: ambulatory Limitations: no limitations - History of Present Illness Initial comments: 34-year-old female approximately 7 weeks gestation presenting to the ER with a chief complaint of nausea and right-sided abdominal pain. Patient states she has been nauseous for the past several weeks. She states today she was unable to keep any food or drinks down which brought her to the ER. She also is reporting a right lower quadrant abdominal pain. She denies any vaginal bleeding or discharge. Patient has not taken anything for her symptoms at the this time. She did take Tylenol yesterday with mild improvement. Denies any fevers, chills, vomiting, chest pain, shortness of breath, urinary complaints or peripheral edema. - Related Data Home Medications Medication Instructions Recorded Confirmed Albuterol Inhaler [Ventolin Hfa 1 - 2 puff INHALATION RT-Q6H PRN 09/30/19 01/24/24 Inhaler] Cetirizine HCl [Zyrtec] 10 mg PO DAILY 11/21/20 01/24/24 Cariprazine HCl [Vraylar] 1.5 mg PO HS 01/24/24 01/24/24 Escitalopram [Lexapro] 10 mg PO DAILY 01/24/24 01/24/24 Tirzepatide [Mounjaro] 2.5 mg SQ HS 01/24/24 01/24/24 Previous Rx's Medication Instructions Recorded Omeprazole [PriLOSEC] 40 mg PO DAILY #14 cap 11/24/20 Ciprofloxacin HCl [Cipro] 250 mg PO Q12HR 1 Days #2 tab 01/28/24 Ketorolac [Toradol] 10 mg PO Q6HR PRN #10 tab 01/28/24 Nitrofurantoin Monohyd/M-Cryst 100 mg PO Q12HR #14 cap 04/12/24 [Macrobid] Ondansetron Odt [Zofran Odt] 4 mg PO Q8HR PRN #15 tab 04/12/24 Allergies Allergy/AdvReac Type Severity Reaction Status Date / Time amoxicillin [From Augmentin] Allergy Anaphylaxis Verified 01/28/24 09:16 cefaclor [From Ceclor] Allergy ASTHMA Verified 01/28/24 09:16 ATTACK cephalexin monohydrate Allergy Rash/Hives Verified 01/28/24 09:16 [From Keflex] clavulanic acid Allergy Anaphylaxis Verified 01/28/24 09:16 [From Augmentin] Review of Systems ROS Statement: Those systems with pertinent positive or pertinent negative responses have been documented in the HPI. ROS Other: All systems not noted in ROS Statement are negative. Past Medical History Past Medical History: Asthma, GERD/Reflux Additional Past Medical History / Comment(s): hx kidney stone, PCOS History of Any Multi-Drug Resistant Organisms: None Reported Past Surgical History: Section, Cholecystectomy, Orthopedic Surgery Additional Past Surgical History / Comment(s): d&c, right heel repair of fx. w/plate & screws, sx to remove kidney stone, LT ANKLE TENDON SX, Past Anesthesia/Blood Transfusion Reactions: Previous Problems w/ Anesthesia, Postoperative Nausea & Vomiting (PONV) Additional Past Anesthesia/Blood Transfusion Reaction / Comment(s): trouble waking up Past Psychological History: Anxiety Smoking Status: Former smoker Past Alcohol Use History: None Reported Past Drug Use History: None Reported - Past Family History Mother Family Medical History: Thyroid Disorder Father Family Medical History: Diabetes Mellitus Additional Family Medical History / Comment(s): Heart Disease, Crohns General Exam Limitations: no limitations General appearance: alert, in no apparent distress Respiratory exam: Present: normal lung sounds bilaterally. Absent: respiratory distress, wheezes, rales, rhonchi, stridor Cardiovascular Exam: Present: regular rate, normal rhythm, normal heart sounds. Absent: systolic murmur, diastolic murmur, rubs, gallop, clicks GI/Abdominal exam: Present: soft, tenderness (right suprapubic), normal bowel sounds Extremities exam: Present: normal inspection, full ROM, normal capillary refill. Absent: tenderness, pedal edema, joint swelling, calf tenderness Skin exam: Present: warm, dry, intact, normal color. Absent: rash Course Vital Signs 04/12/24 04/12/24 12:33 15:24 Temperature 98.3 F Pulse Rate 90 78 Respiratory 16 18 Rate Blood Pressure 134/84 125/82 O2 Sat by Pulse 99 99 Oximetry Medical Decision Making - Medical Decision Making Was pt. sent in by a medical professional or institution (, PA, LICENSED PSYCHOLOGIST DIRECTOR, urgent care, hospital, or senior care...) When possible be specific @ -No Did you speak to anyone other than the patient for history (EMS, parent, family, police, friend...)? What history was obtained from this source @ -No Did you review nursing and triage notes (agree or disagree)? Why? @ -I reviewed and agree with nursing and triage notes Were old charts reviewed (outside hosp., previous admission, EMS record, old EKG, old radiological studies, urgent care reports/EKG's, senior care records)? Report findings @ -No old charts were reviewed Differential Diagnosis (chest pain, altered mental status, abdominal pain women, abdominal pain men, vaginal bleeding, weakness, fever, dyspnea, syncope, headache, dizziness, GI bleed, back pain, seizure, CVA, palpatations, mental health, musculoskeletal)? @ -Differential Abdominal Pain Women: Appendicitis, Cholecystitis, diverticulosis, ischemic bowel, pancreatitis, hepatitis, UTI, gastroenteritis, AAA, incarcerated hernia, bowel obstruction, constipation, inflammatory bowel, hepatitis, peptic ulcer disease, splenic infarction, perforated viscus, vulvitis, ovarian torsion, PID, kidney stone, placenta abruption, this is not meant to be an all-inclusive list EKG interpreted by me (3pts min.). @ -None X-rays interpreted by me (1pt min.). @ -None done CT interpreted by me (1pt min.). @ -None done U/S interpreted by me (1pt. min.). @ - ultrasound showing a fluid lobule within the uterus may be representing an early gestational sac. Measuring 1.1 cm by transabdominal scanning. No yolk sac or pole seen. Cannot rule out ectopic . What testing was considered but not performed or refused? (CT, X-rays, U/S, labs)? Why? @ -None What meds were considered but not given or refused? Why? @ -None Did you discuss the management of the patient with other professionals (pro fessionals i.e. , PA, LICENSED PSYCHOLOGIST DIRECTOR, lab, RT, psych nurse, social sciences lecturer, storeroom supervisor, teacher, special forces officer, case maker)? Give summary @ -No Was smoking cessation discussed for >3mins.? @ -No Was critical care preformed (if so, how long)? @ -No Were there social determinants of health that impacted care today? How? (Homelessness, low income, unemployed, alcoholism, drug addiction, transportation, low edu. Level, literacy, decrease access to med. care, long-term, rehab)? @ -No Was there de-escalation of care discussed even if they declined (Discuss DNR or withdrawal of care, Hospice)? DNR status @ -No What co-morbidities impacted this encounter? (DM, HTN, Smoking, COPD, CAD, Cancer, CVA, ARF, Chemo, Hep., AIDS, mental health diagnosis, sleep apnea, morbid obesity)? @ - Was patient admitted / discharged? Hospital course, mention meds given and route, prescriptions, significant lab abnormalities, going to OR and other pertinent info. @ -Discharged. 34-year-old female presented to the ER with a chief complaint of nausea and right-sided abdominal pain. History and physical exam completed. Vitals stable. Patient in no signs of acute distress and nontoxic-appearing. Laboratory studies showing a hemoglobin of 16.3 otherwise unremarkable. Beta- hCG 4013.3. Urine analysis concerning for infection with 6 WBCs and small leukocyte esterases. Urine sent for culture. Patient will be started on Macrobid. Ultrasound showing a fluid lobule within the uterus may representing an early gestational sac. No yolk sac or pole. Blood type A+, RhoGAM not indicated. Patient received IV fluids and Zofran for symptom control. Upon reevaluation, patient resting comfortably in exam room in no signs of acute distress. Patient reporting improvement of symptoms. Results discussed with patient, all questions answered. I advised extremely close follow-up with [facility] for serial hCGs and ultrasounds. Zofran prescribed. Patient discharged in stable condition. Patient verbally expressed understanding and agreement with care plan. Case discussed with ED attending, Dr. Jorgensen. Undiagnosed new problem with uncertain prognosis? @ -No Drug Therapy requiring intensive monitoring for toxicity (Heparin, Nitro, Insulin, Cardizem)? @ -No Were any procedures done? @ -No Diagnosis/symptom? @ -Threatened /UTI Acute, or Chronic, or Acute on Chronic? @ -Acute Uncomplicated (without systemic symptoms) or Complicated (systemic symptoms)? @ -Uncomplicated Side effects of treatment? @ -No Exacerbation, Progression, or Severe Exacerbation? @ -No Poses a threat to life or bodily function? How? (Chest pain, [place], [place], pneumonia, PE, COPD, DKA, ARF, appy, cholecystitis, CVA, Diverticulitis, Homicidal, Suicidal, threat to staff... and all critical care pts) @ -No - Lab Data Result diagrams: 04/12/24 12:57 04/12/24 12:57 Lab Results 04/12/24 04/12/24 04/12/24 Range/Units 12:57 12:57 13:03 WBC 9.2 (3.8-10.6) k/uL RBC 5.48 H (3.80-5.40) m/uL Hgb 16.3 H (11.4-16.0) gm/dL Hct 47.7 H (34.0-46.0) % MCV 87.0 (80.0-100.0) fL MCH 29.8 (25.0-35.0) pg MCHC 34.2 (31.0-37.0) g/dL RDW 13.8 (11.5-15.5) % Plt Count 206 (150-450) k/uL MPV 8.8 Neutrophils % 66 % Lymphocytes % 24 % Monocytes % 5 % Eosinophils % 4 % Basophils % 1 % Neutrophils # 6.0 (1.3-7.7) k/uL Lymphocytes # 2.3 (1.0-4.8) k/uL Monocytes # 0.4 (0-1.0) k/uL Eosinophils # 0.4 (0-0.7) k/uL Basophils # 0.1 (0-0.2) k/uL Sodium 137 (137-145) mmol/L Potassium 4.4 (3.5-5.1) mmol/L Chloride 108 H (98-107) mmol/L Carbon Dioxide 20 L (22-30) mmol/L Anion Gap 9 mmol/L BUN 9 (7-17) mg/dL Creatinine 0.63 (0.52-1.04) mg/dL Est GFR (CKD-EPI)AfAm >90 (>60 ml/min/1.73 sqM) Est GFR (CKD-EPI)NonAf >90 (>60 ml/min/1.73 sqM) Glucose 93 (74-99) mg/dL Calcium 9.4 (8.4-10.2) mg/dL Total Bilirubin 1.0 (0.2-1.3) mg/dL AST 25 (14-36) U/L ALT 28 (4-34) U/L Alkaline Phosphatase 75 (38-126) U/L Total Protein 6.6 (6.3-8.2) g/dL Albumin 4.3 (3.5-5.0) g/dL HCG, Quant 4013.3 mIU/mL Urine Color Yellow Urine Appearance Clear (Clear) Urine pH 5.5 (5.0-8.0) Ur Specific [place] 1.022 (1.001-1.035) Urine Protein Trace H (Negative) Urine Glucose (UA) Negative (Negative) Urine Ketones Negative (Negative) Urine Blood Negative (Negative) Urine Nitrite Negative (Negative) Urine Bilirubin Negative (Negative) Urine Urobilinogen <2.0 (<2.0) mg/dL Ur Leukocyte Esterase Small H (Negative) Urine RBC 1 (0-5) /hpf Urine WBC 6 H (0-5) /hpf Ur Squamous Epith Cells 4 (0-4) /hpf Hyaline Casts 1 (0-2) /lpf Urine Mucus Many H (None) /hpf Blood Type Blood Type Recheck Bld Type Recheck Status 04/12/24 Range/Units 13:55 WBC (3.8-10.6) k/uL RBC (3.80-5.40) m/uL Hgb (11.4-16.0) gm/dL Hct (34.0-46.0) % MCV (80.0-100.0) fL MCH (25.0-35.0) pg MCHC (31.0-37.0) g/dL RDW (11.5-15.5) % Plt Count (150-450) k/uL MPV Neutrophils % % Lymphocytes % % Monocytes % % Eosinophils % % Basophils % % Neutrophils # (1.3-7.7) k/uL Lymphocytes # (1.0-4.8) k/uL Monocytes # (0-1.0) k/uL Eosinophils # (0-0.7) k/uL Basophils # (0-0.2) k/uL Sodium (137-145) mmol/L Potassium (3.5-5.1) mmol/L Chloride (98-107) mmol/L Carbon Dioxide (22-30) mmol/L Anion Gap mmol/L BUN (7-17) mg/dL Creatinine (0.52-1.04) mg/dL Est GFR (CKD-EPI)AfAm (>60 ml/min/1.73 sqM) Est GFR (CKD-EPI)NonAf (>60 ml/min/1.73 sqM) Glucose (74-99) mg/dL Calcium (8.4-10.2) mg/dL Total Bilirubin (0.2-1.3) mg/dL AST (14-36) U/L ALT (4-34) U/L Alkaline Phosphatase (38-126) U/L Total Protein (6.3-8.2) g/dL Albumin (3.5-5.0) g/dL HCG, Quant mIU/mL Urine Color Urine Appearance (Clear) Urine pH (5.0-8.0) Ur Specific [place] (1.001-1.035) Urine Protein (Negative) Urine Glucose (UA) (Negative) Urine Ketones (Negative) Urine Blood (Negative) Urine Nitrite (Negative) Urine Bilirubin (Negative) Urine Urobilinogen (<2.0) mg/dL Ur Leukocyte Esterase (Negative) Urine RBC (0-5) /hpf Urine WBC (0-5) /hpf Ur Squamous Epith Cells (0-4) /hpf Hyaline Casts (0-2) /lpf Urine Mucus (None) /hpf Blood Type A Positive Blood Type Recheck A Pos Bld Type Recheck Status No - Radiology Data Radiology results: report reviewed, image reviewed Disposition Clinical Impression: UTI (urinary tract infection), Threatened Disposition: HOME SELF-CARE Condition: Stable Instructions (If sedation given, give patient instructions): Acute Nausea and Vomiting (ED) Additional Instructions: Follow-up with [facility]. You may take Zofran every 8 hours for nausea. Complete full course of antibiotics. Prescriptions: Nitrofurantoin Monohyd/M-Cryst [Macrobid] 100 mg PO Q12HR #14 cap Ondansetron Odt [Zofran Odt] 4 mg PO Q8HR PRN #15 tab PRN Reason: Nausea Is patient prescribed a controlled substance at d/c from ED?: No Referrals: Rashid Herrera MD [Primary Care Provider] - 1-2 days Malgorzata Luke DO [Doctor of Osteopathic Medicine] - 1-2 days Time of Disposition: 15:05
[2024-04-12 13:27] LABS: Basophils # (A) 0.1 k/uL (0-0.2); Basophils % (A) 1 %; Eosinophils # (A) 0.4 k/uL (0-0.7); Eosinophils % (A) 4 %; HCT 47.7 % (34.0-46.0); HGB 16.3 gm/dL (11.4-16.0); Lymphocytes # (A) 2.3 k/uL (1.0-4.8); Lymphocytes % (A) 24 %; MCH 29.8 pg (25.0-35.0); MCHC 34.2 g/dL (31.0-37.0); Mean Platelet Volume 8.8; Monocytes # (A) 0.4 k/uL (0-1.0); Monocytes % (A) 5 %; Neutrophils % (A) 66 %; Platelet Count 206 k/uL (150-450); RBC 5.48 m/uL (3.80-5.40); RDW 13.8 % (11.5-15.5); WBC 9.2 k/uL (3.8-10.6)
[2024-04-12 13:35] LABS: Appearance,Urine Clear (Clear); Bilirubin,Urine Negative (Negative); Blood,Urine Negative (Negative); Color,Urine Yellow; Glucose,Urine (UA) Negative (Negative); Hyaline Casts,Urine 1 /lpf (0-2); Ketones,Urine Negative (Negative); Leukocyte Esterase,Urine Small (Negative); Mucus,Urine Many /hpf; Nitrite,Urine Negative (Negative); PH, Urine 5.5 (5.0-8.0); Protein,Urine Trace (Negative); RBC,Urine 1 /hpf (0-5); Specific Gravity,Urine 1.022 (1.001-1.035); Squamous Epithelial Cell,Urine 4 /hpf (0-4); Urobilinogen,Urine <2.0 mg/dL (<2.0); WBC,Urine 6 /hpf (0-5)
[2024-04-12 13:37] LABS: ALT 28 U/L (4-34); AST 25 U/L (14-36); African American GFR (CKD) >90 (>60 ml/min/1.73 sqM); Albumin 4.3 g/dL (3.5-5.0); Alkaline Phosphatase 75 U/L (38-126); Anion Gap 9 mmol/L; Blood Urea Nitrogen 9 mg/dL (7-17); Calcium 9.4 mg/dL (8.4-10.2); Carbon Dioxide 20 mmol/L (22-30); Chloride 108 mmol/L (98-107); Glucose 93 mg/dL (74-99); Non-African American GFR(CKD) >90 (>60 ml/min/1.73 sqM); Potassium 4.4 mmol/L (3.5-5.1); Sodium 137 mmol/L (137-145); Total Protein 6.6 g/dL (6.3-8.2)
[2024-04-12 13:53] LABS: HCG,Quantitative Serum 4013.3 mIU/mL
--- NOTE | 2024-04-12 14:27 | US ---
EXAMINATION TYPE: Ultrasound OB <= 14 week fetus DATE OF EXAM: 04/12/2024 1:42 PM COMPARISON: NONE CLINICAL INDICATION: Female, 34 years old with history of RLQ abd pain and nausea ; Pt states RLQ pain and nausea EXAM PERFORMED: Transabdominal (TA) EXAM MEASUREMENTS: GESTATIONAL AGE / DATING Physician Established: Not yet established Dates by LMP: (7 weeks/2 days) EDC: 11/27/2024 Dates by First Scan: No previous this is first scan Dates by Current Scan for: (5 weeks/6 days) EDC: 12/07/2024 MATERNAL ANATOMY Uterus: 10.8 x 5.4 x 5.2 cm Right Ovary: 4.6 x 3.0 x 2.6 cm Left Ovary: 3.4 x 3.0 x 1.8 cm Post CDS / Adnexa: wnl Presence of free fluid: No Presence of corpus luteal cyst: Right Ovary= 2.1 x 2.1 x 2.0 cm Presence of subchorionic bleed: No GESTATION / SURVEY CRL: Not visualized- too early MSD: 1.1 cm (5 weeks/6 days) Yolk Sac (normal less than 6mm): Not visualized- too early Date of LMP: 02/21/2024 Beta HcG (if available): Not available at this time [employer] Apprentice notes: Possible early gestational sac within uterus IMPRESSION: A fluid locule within the uterus which may represent an early gestational sac. This is measured at 1. 1 cm by transabdominal scanning. No yolk sac or pole at this time. Current differential conside rations include pseudogestational sac of a nonvisualized ectopic , failed , and nor mal early intrauterine . Recommend serial beta hCG and ultrasound follow-up to ensure the ap pearance of a normal pole with cardiac activity. Especially since measurements are discordant w ith age by LMP.
[2024-04-12 15:26] VITALS: BP 125/82; PULSE 78; RESP 18
== END 2024-04-12 15:26 | disposition home or self-care (01) ==
LOC: EC 12:31 → SUPCPDRO 12:31 → EC 15:26
DX: R11.0 Nausea
CPT/HCPCS: 36415; 76801; 80053; 81001; 84702; 85025; 86900; 86901; 96361; 96374; 99284